=== PATIENT | male | born 1940 | race Caucasian/White ===

== ENCOUNTER 2022-01-18 08:50 | Inpatient (IN) | payer MEDICARE ==
[2022-01-18] MEDS ORDERED: NITROGLYCERIN SL TABS 0.4 MG TAB SUBLINGUAL PRN (09:15)
[2022-01-18] MEDS ORDERED: ASPIRIN 325 MG TAB PO STA (09:15)
[2022-01-18] MEDS ORDERED: ATORVASTATIN 80 MG TAB PO STA (09:17)
--- NOTE | 2022-01-18 09:22 | ED ---
General Adult HPI - General Chief complaint: Chest Pain Stated complaint: Chest Pain Time Seen by Provider: 01/18/22 08:53 Source: patient, RN notes reviewed, old records reviewed Mode of arrival: ambulatory Limitations: no limitations - History of Present Illness Initial comments: 81-year-old male presenting for evaluation of exertional chest pain over the past one week and constant nonexertional chest pain over the past 4 hours. Patient states is associated with diaphoresis. No vomiting or abdominal pain. Patient states that over the past one week after using his exercise bike he developed about 30 minutes of substernal chest pain. States it radiates to his neck and jaw. He has previous history of CAD with stenting. Follows with cardiology. - Related Data Allergies Allergy/AdvReac Type Severity Reaction Status Date / Time clopidogrel [From Plavix] Allergy Unknown Verified 01/18/22 09:00 Review of Systems ROS Statement: Those systems with pertinent positive or pertinent negative responses have been documented in the HPI. ROS Other: All systems not noted in ROS Statement are negative. Past Medical History Past Medical History: Coronary Artery Disease (CAD), Chest Pain / Angina, Hyperlipidemia History of Any Multi-Drug Resistant Organisms: None Reported Additional Past Surgical History / Comment(s): Cardiac stents Past Psychological History: No Psychological Hx Reported Smoking Status: Never smoker Past Alcohol Use History: Daily Past Drug Use History: None Reported General Exam Limitations: no limitations General appearance: alert, in no apparent distress Head exam: Present: atraumatic, normocephalic Eye exam: Present: normal appearance, PERRL ENT exam: Present: normal exam Neck exam: Present: normal inspection. Absent: tenderness, meningismus Respiratory exam: Present: normal lung sounds bilaterally. Absent: respiratory distress, wheezes Cardiovascular Exam: Present: normal rhythm, tachycardia GI/Abdominal exam: Present: soft. Absent: distended, tenderness, guarding, rebound Extremities exam: Present: normal inspection, normal capillary refill. Absent: pedal edema Neurological exam: Present: alert, oriented X3, CN II-XII intact. Absent: motor sensory deficit Psychiatric exam: Present: normal affect, normal mood Skin exam: Present: warm, dry, intact. Absent: cyanosis, diaphoretic Course Vital Signs 01/18/22 01/18/22 01/18/22 08:57 09:07 09:24 Temperature 98 F Pulse Rate 55 L 54 L Pulse Rate [ 53 L Health Program Specialist ] Respiratory 20 18 Rate Blood Pressure 131/83 142/88 O2 Sat by Pulse 100 98 Oximetry 01/18/22 01/18/22 01/18/22 09:31 09:35 09:42 Temperature Pulse Rate 43 L 48 L 47 L Pulse Rate [ Health Program Specialist ] Respiratory 18 18 18 Rate Blood Pressure 64/45 91/61 104/71 O2 Sat by Pulse 97 96 97 Oximetry 01/18/22 09:46 Temperature Pulse Rate 44 L Pulse Rate [ Health Program Specialist ] Respiratory 18 Rate Blood Pressure 116/73 O2 Sat by Pulse 98 Oximetry - Reevaluation(s) Reevaluation #1: 01/18/22 09:[address] James covering for cardiology. Will review EKG urgently and advise. Currently patient will receive aspirin, Lipitor, nit roglycerin. EKG Findings - EKG Comments: EKG Findings:: EKG: Sinus bradycardia with first-degree AV block, ST segment depression and biphasic T waves in the precordial leads V2 and V3 with continued depression in V4 V5. There is questionable elevation in aVR. Ischemic appearing EKG with a ventricular rate of 53, UT interval 219, QRS 100, QTC 382, no old for comparison. Repeat EKG at 927, sinus bradycardia with first-degree AV block, ST segment depression in the precordial leads, no ST segment elevation appreciated, ventricular rate of 48, UT interval 220, QRS duration 112, QTC 369. Medical Decision Making - Medical Decision Making 81 yo male presenting for evaluation of evaluation of chest pain. Patient has ischemic appearing EKG. His symptoms are consistent with ACS. He is given aspirin, Lipitor and nitroglycerin. The patient does respond poorly 2 nitroglycerin with hypotension and diaphoresis. This is treated with 1 L normal saline bolus and does resolve. Patient has a stable hemoglobin at 15. He started on heparin. I did discuss case with Dr. James throughout the care of this patient in the emergency department. He will be evaluated urgently by cardiology. [facility] to [facility]. Troponin is elevated at 0.7. Non-ST segment elevated IA. - Lab Data Result diagrams: 01/18/22 09:20 01/18/22 09:20 Lab Results 01/18/22 01/18/22 01/18/22 Range/Units 09:20 09:20 09:20 WBC 13.0 H (3.8-10.6) k/uL RBC 4.89 (4.30-5.90) m/uL Hgb 15.3 (13.0-17.5) gm/dL Hct 47.3 (39.0-53.0) % MCV 96.8 (80.0-100.0) fL MCH 31.4 (25.0-35.0) pg MCHC 32.4 (31.0-37.0) g/dL RDW 12.0 (11.5-15.5) % Plt Count 285 (150-450) k/uL MPV 7.5 Neutrophils % 80 % Lymphocytes % 13 % Monocytes % 4 % Eosinophils % 1 % Basophils % 1 % Neutrophils # 10.4 H (1.3-7.7) k/uL Lymphocytes # 1.7 (1.0-4.8) k/uL Monocytes # 0.6 (0-1.0) k/uL Eosinophils # 0.1 (0-0.7) k/uL Basophils # 0.1 (0-0.2) k/uL PT 9.9 (9.0-12.0) sec INR 0.9 (<1.2) APTT 23.8 (22.0-30.0) sec Sodium 138 (137-145) mmol/L Potassium 4.1 (3.5-5.1) mmol/L Chloride 100 (98-107) mmol/L Carbon Dioxide 25 (22-30) mmol/L Anion Gap 13 mmol/L BUN 18 (9-20) mg/dL Creatinine 0.97 (0.66-1.25) mg/dL Est GFR (CKD-EPI)AfAm 86 (>60 ml/min/1.73 sqM) Est GFR (CKD-EPI)NonAf 75 (>60 ml/min/1.73 sqM) Glucose 138 H (74-99) mg/dL Calcium 9.9 (8.4-10.2) mg/dL Magnesium 2.0 (1.6-2.3) mg/dL Total Bilirubin 0.6 (0.2-1.3) mg/dL AST 57 (17-59) U/L ALT 38 (4-49) U/L Alkaline Phosphatase 88 (38-126) U/L Troponin I (0.000-0.034) ng/mL NT-Pro-B Natriuret Pep pg/mL Total Protein 7.7 (6.3-8.2) g/dL Albumin 4.5 (3.5-5.0) g/dL Lipase 159 (23-300) U/L 01/18/22 01/18/22 Range/Units 09:20 09:20 WBC (3.8-10.6) k/uL RBC (4.30-5.90) m/uL Hgb (13.0-17.5) gm/dL Hct (39.0-53.0) % MCV (80.0-100.0) fL MCH (25.0-35.0) pg MCHC (31.0-37.0) g/dL RDW (11.5-15.5) % Plt Count (150-450) k/uL MPV Neutrophils % % Lymphocytes % % Monocytes % % Eosinophils % % Basophils % % Neutrophils # (1.3-7.7) k/uL Lymphocytes # (1.0-4.8) k/uL Monocytes # (0-1.0) k/uL Eosinophils # (0-0.7) k/uL Basophils # (0-0.2) k/uL PT (9.0-12.0) sec INR (<1.2) APTT (22.0-30.0) sec Sodium (137-145) mmol/L Potassium (3.5-5.1) mmol/L Chloride (98-107) mmol/L Carbon Dioxide (22-30) mmol/L Anion Gap mmol/L BUN (9-20) mg/dL Creatinine (0.66-1.25) mg/dL Est GFR (CKD-EPI)AfAm (>60 ml/min/1.73 sqM) Est GFR (CKD-EPI)NonAf (>60 ml/min/1.73 sqM) Glucose (74-99) mg/dL Calcium (8.4-10.2) mg/dL Magnesium (1.6-2.3) mg/dL Total Bilirubin (0.2-1.3) mg/dL AST (17-59) U/L ALT (4-49) U/L Alkaline Phosphatase (38-126) U/L Troponin I 0.792 H* (0.000-0.034) ng/mL NT-Pro-B Natriuret Pep 129 pg/mL Total Protein (6.3-8.2) g/dL Albumin (3.5-5.0) g/dL Lipase (23-300) U/L Critical Care Time Critical Care Time: Yes Total Critical Care Time: 35 Disposition Clinical Impression: Acute non-ST elevation myocardial infarction (NSTEMI) Disposition: ADMITTED IP TO THIS [facility] Condition: Serious Is patient prescribed a controlled substance at d/c from ED?: No Referrals: Davidson Reveles DO [Primary Care Provider] - 1-2 days Time of Disposition: 10:17
[2022-01-18 09:28] LABS: Basophils # (A) 0.1 k/uL (0-0.2); Basophils % (A) 1 %; Eosinophils # (A) 0.1 k/uL (0-0.7); Eosinophils % (A) 1 %; HCT 47.3 % (39.0-53.0); HGB 15.3 gm/dL (13.0-17.5); Lymphocytes # (A) 1.7 k/uL (1.0-4.8); Lymphocytes % (A) 13 %; MCH 31.4 pg (25.0-35.0); MCHC 32.4 g/dL (31.0-37.0); MCV 96.8 fL (80.0-100.0); Mean Platelet Volume 7.5; Monocytes # (A) 0.6 k/uL (0-1.0); Monocytes % (A) 4 %; Neutrophils # (A) 10.4 k/uL (1.3-7.7); Neutrophils % (A) 80 %; Platelet Count 285 k/uL (150-450); RBC 4.89 m/uL (4.30-5.90)
[2022-01-18] MEDS ORDERED: SODIUM CHLORIDE 0.9% 1,000 ML IV ONE ×2 (09:31→11:44)
[2022-01-18 09:41] LABS: Albumin 4.5 g/dL (3.5-5.0); Calcium 9.9 mg/dL (8.4-10.2); INR 0.9 (<1.2); Partial Thromboplastin Time 23.8 sec (22.0-30.0); Potassium 4.1 mmol/L (3.5-5.1); Prothrombin Time 9.9 sec (9.0-12.0); Total Bilirubin 0.6 mg/dL (0.2-1.3); Total Protein 7.7 g/dL (6.3-8.2)
[2022-01-18] MEDS ORDERED: HEPARIN SODIUM 1,000 UN/ML (10ML VL) IV ONE ×2 (09:47→12:15)
[2022-01-18] MEDS: HEPARIN SOD,PORK IN 0.45% NACL 25,000 UNIT in 0.45% NACL 1 250ML.BAG IV SCH ×2 (10:00→13:44)
--- NOTE | 2022-01-18 10:00 | XR ---
EXAMINATION TYPE: XR chest 1V portable DATE OF EXAM: 01/18/2022 9:54 AM COMPARISON: None TECHNIQUE: XR chest 1V portable Frontal view of the chest. CLINICAL INDICATION:Male, 81 years old with history of chest pain; FINDINGS: Lungs/Pleura: There is no evidence of pleural effusion, focal consolidation, or pneumothorax. Pulmonary vascularity: Unremarkable. Heart/mediastinum: Cardiomediastinal silhouette is unremarkable. Musculoskeletal: No acute osseous pathology. IMPRESSION: No acute cardiopulmonary disease/process.
--- NOTE | 2022-01-18 11:06 | P.CRDCN ---
History of Present Illness History of present illness: HISTORY OF PRESENTING ILLNESS Patient is pleasant 81-year-old male with history of CAD status post remote stenting approximately 20 years ago, hyperlipidemia who normally follows with Dr. Fritz. He states that over the last week he has had increased episodes of shortness breath and some chest tightness after working too much short exerting himself. He will stop it and it will go away. Over last 24 hours he has felt somewhat more uncomfortable and had a harder time sleeping and then started to develop more chest pressure sensation with some shortness of breath and diaphoresis. He therefore came emergency department and was found to have diffuse ST depressions V1 through V6 as well as in the inferior leads. He was given nitroglycerin however decrease in blood pressure with some mild improvement in chest pain. He admits he has done very well since his initial stenting approximately 22 years ago. He actually had a echocardiogram performed last week in the office however results not available. Currently he is still having some mild 1-2 out of 10 chest pressure. Denies any orthopnea. Blood pressure stable 120s over 80s. Blood work shows white blood cell count 13.0, hemoglobin 15, creatinine 0.9, troponin 0.79. He states he has an ALLERGY to Plavix however appears more of an intolerance and denies any hematochezia or melena. REVIEW OF SYSTEMS At the time of my exam: CONSTITUTIONAL: Denies fever or chills. CARDIOVASCULAR: +chest pain, +shortness of breath, no orthopnea, PND or palpitations. RESPIRATORY: Denies cough. GASTROINTESTINAL: Denies abdominal pain, diarrhea, constipation, nausea or vomiting. MUSCULOSKELETAL: Denies myalgias. NEUROLOGIC: Denies numbness, tingling or weakness. ENDOCRINE: Denies fatigue, weight change, polydipsia or polyurina. GENITOURINARY: Denies burning, hematuria or urgency with micturation. HEMATOLOGIC: Denies history of anemia or bleeding. PHYSICAL EXAMINATION Vital signs reviewed. CONSTITUTIONAL: No apparent distress. HEENT: Head is normocephalic. Pupils are equal, round. Sclerae anicteric. Mucous membranes of the mouth are moist. No JVD. No carotid bruit. CHEST EXAMINATION: Lungs are clear to auscultation. No chest wall tenderness is noted on palpation or with deep breathing. HEART EXAMINATION: Regular rate and rhythm. S1, S2 heard. No murmurs, gallops or rub. ABDOMEN: Soft, nontender. Positive bowel sounds. EXTREMITIES: 2+ peripheral pulses, no lower extremity edema and no calf tenderness. NEUROLOGIC EXAMINATION: Patient is awake, alert and oriented x3. ASSESSMENT 1. Non-STEMI with ongoing mild chest discomfort 2. Hypotension after administering nitroglycerin, improved 3. Hyperlipidemia 4. CAD with prior history of remote PCI PLAN Patient with classic symptoms and concerning ischemic-appearing EKG with ongoing chest pain and non-STEMI. Therefore discussed recommendations for more urgent heart catheterization and patient is agreeable. Check 2-D echo. Heparin drip, aspirin. Further recommendations to follow. Past Medical History Past Medical History: Coronary Artery Disease (CAD), Chest Pain / Angina, Hyperlipidemia History of Any Multi-Drug Resistant Organisms: None Reported Additional Past Surgical History / Comment(s): Cardiac stents Past Psychological History: No Psychological Hx Reported Smoking Status: Never smoker Past Alcohol Use History: Daily Past Drug Use History: None Reported Medications and Allergies Allergies Allergy/AdvReac Type Severity Reaction Status Date / Time clopidogrel [From Plavix] Allergy Unknown Verified 01/18/22 09:00 Physical Exam Vitals: Vital Signs Temp Pulse Pulse Resp BP Pulse Ox 01/18/22 09:46 44 L 18 116/73 98 01/18/22 09:42 47 L 18 104/71 97 01/18/22 09:35 48 L 18 91/61 96 01/18/22 09:31 43 L 18 64/45 97 01/18/22 09:24 54 L 18 142/88 98 01/18/22 09:07 53 L 01/18/22 08:57 98 F 55 L 20 131/83 100 Intake and Output 01/17/22 01/18/22 01/18/22 22:59 06:59 14:59 Other: Weight 92.986 kg Results 01/18/22 09:20 01/18/22 09:20 Cardiac Enzymes 01/18/22 01/18/22 Range/Units 09:20 09:20 AST 57 (17-59) U/L Troponin I 0.792 H* (0.000-0.034) ng/mL Coagulation 01/18/22 Range/Units 09:20 PT 9.9 (9.0-12.0) sec APTT 23.8 (22.0-30.0) sec CBC 01/18/22 Range/Units 09:20 WBC 13.0 H (3.8-10.6) k/uL RBC 4.89 (4.30-5.90) m/uL Hgb 15.3 (13.0-17.5) gm/dL Hct 47.3 (39.0-53.0) % Plt Count 285 (150-450) k/uL Comprehensive Metabolic Panel 01/18/22 Range/Units 09:20 Sodium 138 (137-145) mmol/L Potassium 4.1 (3.5-5.1) mmol/L Chloride 100 (98-107) mmol/L Carbon Dioxide 25 (22-30) mmol/L BUN 18 (9-20) mg/dL Creatinine 0.97 (0.66-1.25) mg/dL Glucose 138 H (74-99) mg/dL Calcium 9.9 (8.4-10.2) mg/dL AST 57 (17-59) U/L ALT 38 (4-49) U/L Alkaline Phosphatase 88 (38-126) U/L Total Protein 7.7 (6.3-8.2) g/dL Albumin 4.5 (3.5-5.0) g/dL Current Medications Generic Name Dose Route Start Last Admin Trade Name Freq PRN Reason Stop Dose Admin Heparin Sodium (Porcine) 0 unit 01/18/22 09:47 Heparin Sodium 1,000 Un/Ml (10ml Vl) IV PER PROTOCOL PRN Low PTT Protocol Heparin Sodium/Sodium Chloride 250 mls @ 10 mls/hr 01/18/22 10:00 01/18/22 10:00 25,000 unit/ Sodium Chloride IV 10.754 units/kg/hr .Q24H PANKAJ 10 mls/hr Administration Protocol 10.754 UNITS/KG/HR Nitroglycerin 0.4 mg 01/18/22 09:15 01/18/22 09:24 Nitroglycerin Sl Tabs 0.4 Mg Tab SUBLINGUAL 0.4 mg Q5M PRN Administration Chest Pain Intake and Output 01/17/22 01/18/22 01/18/22 22:59 06:59 14:59 Other: Weight 92.986 kg Patient Weight 01/19/22 06:59 Weight 92.986 kg 01/18/22 09:20 01/18/22 09:20
[2022-01-18] MEDS ORDERED: IV FLUID CONTINUATION 1,000 ML IV ONE (11:31)
[2022-01-18] MEDS ORDERED: VERAPAMIL 2.5 MG/ML 2 ML AMP ONE (11:34)
[2022-01-18] MEDS ORDERED: fentaNYL (PF) 50 MCG/ML 2 ML AMP ONE (11:55)
[2022-01-18] MEDS ORDERED: LIDOCAINE 1% INJ 10MG/ML (30 ML VIAL-PF) SQ ONE (12:10)
[2022-01-18] MEDS ORDERED: fentaNYL (PF) 50 MCG/ML 2 ML AMP IV ONE (12:10)
[2022-01-18] MEDS ORDERED: MIDAZOLAM 2 MG/2 ML VIAL IV ONE (12:11)
[2022-01-18] MEDS ORDERED: VERAPAMIL SYRINGE (5 MG/10 ML) INTRAARTER ONE (12:13)
[2022-01-18] MEDS ORDERED: IOPAMIDOL-370 125ML BTL INJ ONE (12:26)
--- NOTE | 2022-01-18 12:55 | P.HPIM ---
History of Present Illness H&P Date: 01/18/22 Chief Complaint: chest pain 81-year-old male with history of CAD status post remote stenting approximately 20 years ago, hyperlipidemia who normally follows with Dr. Fritz. He has been experiencing increased episodes of exertional chest pressure associated with shortness breath, diaphoresis, feeling of indigestion. Symptoms worse with exertion. Relieved by rest. Symptoms worsened the last 2 days. In the ER EKG showed diffuse ST depressions V1 through V6 as well as in the inferior leads. Blood work shows white blood cell count 13.0, hemoglobin 15, creatinine 0.9, troponin 0.79. Review of Systems Complete review of system performed, pertinent positives per HPI, otherwise negative Past Medical History Past Medical History: Coronary Artery Disease (CAD), Chest Pain / Angina, Hyperlipidemia History of Any Multi-Drug Resistant Organisms: None Reported Additional Past Surgical History / Comment(s): Cardiac stents Past Psychological History: No Psychological Hx Reported Smoking Status: Never smoker Past Alcohol Use History: Daily Past Drug Use History: None Reported Medications and Allergies Home Medications Medication Instructions Recorded Confirmed Type Aspirin 650 mg PO ONCE 01/18/22 01/18/22 History Aspirin EC [Ecotrin Low Dose] 81 mg PO DAILY 01/18/22 01/18/22 History Atorvastatin [Lipitor] 40 mg PO HS 01/18/22 01/18/22 History Garlic 1,000 mg PO Q48H 01/18/22 01/18/22 History Ibuprofen [Motrin Ib] 400 mg PO ONCE 01/18/22 01/18/22 History L.acidoph,Paracasei, B.lactis 1 cap PO Q48H 01/18/22 01/18/22 History [Probiotic] Levothyroxine Sodium [Synthroid] 137 mcg PO AC-BRKFST 01/18/22 01/18/22 History Milk Thistle 150 mg PO Q48H 01/18/22 01/18/22 History Mood Swing Supplement 1 tab PO Q48H 01/18/22 01/18/22 History Multivitamins, Thera [Multivitamin 1 tab PO DAILY 01/18/22 01/18/22 History (formulary)] Saw [place] 500 mg PO Q48H 01/18/22 01/18/22 History Selenium 100 mcg PO Q48H 01/18/22 01/18/22 History Sildenafil Citrate 100 mg PO DAILY PRN 01/18/22 01/18/22 History Valerian Root [Valerian] 450 mg PO Q48H 01/18/22 01/18/22 History Vitamin B-3(Unknown) 1 tab PO Q48H 01/18/22 01/18/22 History Vitamin C(Unknown) 1 tab PO Q48H 01/18/22 01/18/22 History Vitamin D3(Unknown) 1 tab PO Q48H 01/18/22 01/18/22 History Zinc 50 mg PO Q48H 01/18/22 01/18/22 History atenoloL [Tenormin] 25 mg PO HS 01/18/22 01/18/22 History Allergies Allergy/AdvReac Type Severity Reaction Status Date / Time clopidogrel [From Plavix] Allergy Unknown Verified 01/18/22 11:05 nitroglycerin AdvReac vasovagal Verified 01/18/22 11:14 Physical Exam Vitals: Vital Signs Temp Pulse Pulse Resp BP Pulse Ox 01/18/22 11:26 98.2 F 01/18/22 11:24 53 L 18 130/71 98 01/18/22 11:00 52 L 18 138/84 100 01/18/22 09:46 44 L 18 116/73 98 01/18/22 09:42 47 L 18 104/71 97 01/18/22 09:35 48 L 18 91/61 96 01/18/22 09:31 43 L 18 64/45 97 01/18/22 09:24 54 L 18 142/88 98 01/18/22 09:07 53 L 01/18/22 08:57 98 F 55 L 20 131/83 100 Intake and Output 01/17/22 01/18/22 01/18/22 22:59 06:59 14:59 Intake Total 100 Balance 100 Intake: IV 100 Other: Weight 92.986 kg Constitutional: No acute distress, conversant, pleasant Eyes:Anicteric sclerae, moist conjunctiva, no lid-lag, PERRLA, ENMT: Oropharynx clear, no erythema, exudates Neck: Supple, FROM, no masses, or JVD, No carotid bruits, No thyromegaly Lungs: Clear to auscultation, Clear to percussion, Normal respiratory effort, no accessory muscle use Cardiovascular: Heart regular in rate and rhythm, No murmurs, gallops, or rubs, No peripheral edema Abdominal: Soft, Nontender, no guarding, rebound or rigidity, Normoactive bowel sounds, No hepatomegaly, No splenomegaly, No palpable mass Skin: Normal temperature, tone, texture, turgor, no induration, No subcutaneous nodules, No rash, lesions, No ulcers Extremities: No digital cyanosis, No clubbing, Pedal pulses intact and symmetrical, Radial pulses intact and symmetrical, No calf tenderness Psychiatric: Alert and oriented to person, place and time, appropriate affect, intact judgement Neuro: Muscles Strength 5/5 in all 4 extremities, Sensation to light touch grossly present throughout, Cranial nerves II-XII grossly intact, no focal sensory deficits Results CBC & Chem 7: 01/18/22 09:20 01/18/22 09:20 Labs: Abnormal Lab Results - Last 24 Hours (Table) 01/18/22 01/18/22 01/18/22 Range/Units 09:20 09:20 09:20 WBC 13.0 H (3.8-10.6) k/uL Neutrophils # 10.4 H (1.3-7.7) k/uL Glucose 138 H (74-99) mg/dL Troponin I 0.792 H* (0.000-0.034) ng/mL Assessment and Plan Plan: Chest pain Non-ST elevation myocardial infarction Patient admitted Started on aspirin and heparin drip Telemetry Cycle troponins Cardiology evaluation Hypothyroidism Hyperlipidemia Stable Check TSH Resume meds Admit to inpatient, expected length of stay more than 2 midnights
[2022-01-18] MEDS ORDERED: NALOXONE 0.4 MG/ML 1 ML VIAL IV PRN (12:57)
--- NOTE | 2022-01-18 13:13 | P.CARDCATH ---
Description of Procedure: PROCEDURES PERFORMED: Left heart catheterization, bilateral coronary angiography INDICATION: Non-STEMI HISTORY: Patient is a pleasant 81-year-old male with history of CAD with prior stenting approximately 22 years ago to the circumflex and LAD who presents with worsened chest discomfort over the last week and chest pain at rest on presentation. He was found to have non-STEMI with continued chest pain. By the time he presented to the catheterization lab however chest pain had improved. CONSENT:I have discussed the risks, benefits and alternative therapies for the above-mentioned procedure and for both sedation/analgesia as well as necessary blood product administration, if indicated, as they pertain to this patient. The patient has indicated understanding and acceptance of the risks and procedures discussed. PROCEDURE: After the risks, benefits and alternatives of the above mentioned procedure explained in detail with the patient, informed consent was obtained. Patient was taken to the catheterization lab and prepped and draped in usual fashion. 1% lidocaine was used to anesthetize the right radial artery. A 6- Taiwanese sheath was placed in the right radial artery using modified Seldinger technique. Left coronary angiography was performed with a 5-[place]ese JL 3.5 catheter and right coronary angiography was performed with a 5-[place] JR5 catheter in various views. A 5-[place] FL3.5 catheter was inserted into the left ventricle and pressure measurements were obtained. The right radial sheath was removed and a TR band was placed with hemostasis achieved. The patient tolerated the procedure well. Patient was transported back to the post catheterization holding area in stable condition. Conscious Sedation: Patient was monitored under the direct supervision of vision of myself for conscious sedation using Versed and fentanyl for a total duration of 14 minutes HEMODYNAMICS: Aorta: 132/76 LV: 141/12, LVEDP 34, there is a peak to peak gradient of 10mmHg SELECTIVE CORONARY ARTERIOGRAPHY: LEFT MAIN: The left main is a large caliber vessel which bifurcates into the LAD and circumflex. There is no significant stenosis. LEFT ANTERIOR DESCENDING CORONARY ARTERY: LAD is a large caliber vessel which wraps around to the apex. There is a proximal to mid LAD stent with diffuse in- stent stenosis. There is 75% in-stent stenosis. Otherwise there are mild luminal irregularities. LEFT CIRCUMFLEX CORONARY ARTERY: Left circumflex is a moderate caliber vessel with proximal stent which appears to extend back to the ostial circumflex. There is ostial 50% stenosis and then more severe 95% in-stent proximal circumflex stenosis. There is JAK 2-3 flow. RIGHT CORONARY ARTERY: The right coronary artery is a large caliber vessel which gives off a PDA and PLV branch and is the dominant vessel. There is diffuse mild luminal irregularities in a more focal mid RCA 60-70% stenosis and an ostial PDA 90% stenosis.. FINAL IMPRESSION: 1. Three-vessel CAD as described above including 90% PDA, mid RCA 60-70%, proximal circumflex 95% in-stent stenosis, proximal LAD 75% in-stent stenosis. 2. Extremely elevated left sided filling pressures 3. Mild aortic stenosis with peak to peak gradient of 10 mmHg PLAN: 1. Aggressive risk factor modification per most recent ACC/AHA guidelines. 2. Given multivessel disease and in-stent stenosis with circumflex stenting requiring coming back to the ostium, stenting carries somewhat increased risk. Assess for possible bypass however if deemed high risk would recommend multivessel PCI. Patient may require Impella protected PCI depending on progress with diuresis and EF given extremely elevated left sided filling pressures.
--- NOTE | 2022-01-18 16:36 | US ---
EXAMINATION TYPE: US carotid duplex BILAT DATE OF EXAM: 01/18/2022 COMPARISON: NONE CLINICAL HISTORY: Pre-Op Cardiac Surgery. No HTN TECHNIQUE: Carotid duplex ultrasound examination. Indirect Doppler criteria was utilized. FINDINGS: EXAM MEASUREMENTS: RIGHT: Peak Systolic Velocity (PSV) cm/sec ----- Right CCA: 71.3 ----- Right ICA: 74.6 ----- Right ECA: 64.7 ICA/CCA ratio: 1.0 RIGHT: End Diastole cm/sec ----- Right CCA: 17.5 ----- Right ICA: 19.7 ----- Right ECA: 14.2 LEFT: Peak Systolic Velocity (PSV) cm/sec ----- Left CCA: 59.2 ----- Left ICA: 114.5 ----- Left ECA: 62.5 ICA/CCA ratio: 1.9 LEFT: End Diastole cm/sec ----- Left CCA: 20.0 ----- Left ICA: 38.6 ----- Left ECA: 10.9 VERTEBRALS (direction of flow): Right Vertebral: Antegrade Left Vertebral: Antegrade Rhythm: Arrhythmia TENSION MACHINE OPERATOR NOTES: No elevated velocities. Wall thickening. IMPRESSION: There is antegrade flow in the vertebral arteries. The images and measurement suggests less than 25% stenosis in both internal carotid arteries. Criteria for Assigning % of Stenosis / Diameter reduction (Estimation based on the indirect measurements of the internal carotid artery velocities (ICA PSV). 1. Normal (no stenosis)=ICA PSV < 125 cm/s: ratio < 2.0: ICA EDV<40 cm/s. 2. Less than 50% stenosis=ICA PSV < 125 cm/s: ratio < 2.0: ICA EDV<40 cm/s. 3. 50 to 69% stenosis=ICA PSV of 125 to 230 cm/s: ration 2.0 ? 4.0: ICA EDV 40-100 cm/s. 4. Greater than 70% stenosis to near occlusion= ICA PSV > 230 cm/s: ratio > 4.0: ICA EDV > 100 cm/s. 5. Near occlusion= ICA PSV velocities may be low or undetectable: variable ratio and ICA EDV. 6. Total occlusion=unable to detect flow.
[2022-01-18 17:58] LABS: Amorphous Sediment,Urine Rare /hpf; Appearance,Urine Cloudy (Clear); Bilirubin,Urine Negative (Negative); Blood,Urine Negative (Negative); Color,Urine Light Yellow; Glucose,Urine (UA) Negative (Negative); Ketones,Urine Negative (Negative); Leukocyte Esterase,Urine Negative (Negative); Nitrite,Urine Negative (Negative); PH, Urine 7.5 (5.0-8.0); Protein,Urine Negative (Negative); RBC,Urine <1 /hpf (0-5); Specific Gravity,Urine 1.027 (1.001-1.035); Urobilinogen,Urine <2.0 mg/dL (<2.0)
--- NOTE | 2022-01-18 17:58 | CA ---
Transthoracic Echo Report Name: Dada Lino Age: 81 Gender: M : 1940 Exam Date: 01/18/2022 15:13 Exam Location: [facility] Ht (in): 71 Wt (lb): 220 Ordering Physician: Irwin Garcia Attending/Referring Phys: Jose QUEVEDO Fold Skiver Kate Gupta RDCS Procedure CPT: Indications: pre op Cardiac surgery, assess valves and LV fxn Cardiac Hx: Technical Quality: Good Contrast 1: Total Dose (mL): Contrast 2: Total Dose (mL): MEASUREMENTS (Male / Female) Normal Values 2D ECHO LV Diastolic Diameter PLAX 4.1 cm 4.2 - 5.9 / 3.9 - 5.3 cm LV Systolic Diameter PLAX 1.8 cm IVS Diastolic Thickness 1.3 cm 0.6 - 1.0 / 0.6 - 0.9 cm LVPW Diastolic Thickness 1.0 cm 0.6 - 1.0 / 0.6 - 0.9 cm LV Relative Wall Thickness 0.6 LVOT Diameter 1.8 cm LA Volume 47.1 cm??? 18 - 58 / 22 - 52 cm??? M-MODE Aortic Root Diameter MM 3.5 cm LA Systolic Diameter MM 3.2 cm LA Ao Ratio MM 0.9 AV Cusp Separation MM 1.2 cm DOPPLER AV Peak Velocity 196.6 cm/s AV Peak Gradient 15.5 mmHg AV Mean Velocity 144.5 cm/s AV Mean Gradient 9.0 mmHg AV Velocity Time Integral 50.6 cm LVOT Peak Velocity 75.3 cm/s LVOT Peak Gradient 2.3 mmHg AV Area Cont Eq pk 1.0 cm??? MV Area PHT 3.8 cm??? MR Peak Velocity 121.2 cm/s MR Peak Gradient 5.9 mmHg Mitral E Point Velocity 75.2 cm/s Mitral A Point Velocity 71.0 cm/s Mitral E to A Ratio 1.1 MV Deceleration Time 199.6 ms MV E' Velocity 6.9 cm/s Mitral E to MV E' Ratio 10.9 TR Peak Velocity 166.3 cm/s TR Peak Gradient 11.1 mmHg Right Ventricular Systolic Press 15.3 mmHg FINDINGS Left Ventricle Left ventricular ejection fraction is estimated at 40-45%. inferolateral wall is hypokinetic. Grade 1 diastolic dysfunction. Mildly increased septal wall thickness. Right Ventricle The right ventricle is normal in size and function. Right Atrium The right atrium is normal in size. Left Atrium The left atrium is normal in size. Mitral Valve Structurally normal mitral valve without significant stenosis or prolapse. There is trace mitral regurgitation. Aortic Valve Mild aortic stenosis with a peak gradient of 15 mmHg and a mean gradient of 9 mmHg. . There is no aortic regurgitation. Tricuspid Valve Structurally normal tricuspid valve without significant stenosis. Pulmonary artery systolic pressure is normal. Trace tricuspid regurgitation. Pulmonic Valve Structurally normal pulmonic valve without significant stenosis. There is no pulmonic regurgitation. Pericardium Normal pericardium without effusion. Aorta Normal aortic root dimension. CONCLUSIONS Mild LVH Left ventricular ejection fraction 40-45% with inferolateral hypokinesis Trace mitral regurgitation Mild aortic stenosis No pericardial effusion Previewed by: Dr. Mayank James DO (Electronically Signed) Final Date: 18 January 2022 17:57
[2022-01-18] MEDS: atenoloL 25 MG TAB PO SCH (21:14)
[2022-01-18] MEDS: ATORVASTATIN 40 MG TAB PO SCH (21:14)
[2022-01-18 22:40] LABS: Chol/HDL Ratio 4.13 Ratio; LDL Cholesterol,Calculated 71.1 mg/dL (0.0-131.0)
[2022-01-18] MEDS: HEPARIN SODIUM 1,000 UN/ML (10ML VL) IV PRN (22:52)
[2022-01-18 23:12] LABS: Hepatitis A Antibody IgM Nonreactive (Nonreactive); Hepatitis B Core IgM Nonreactive (Nonreactive); Hepatitis B Surface Antigen Nonreactive (Nonreactive); Hepatitis C IgG Antibody Nonreactive (Nonreactive)
[2022-01-18] MEDS: MUPIROCIN 2% OINT 22 GM TUBE NASAL SCH (23:13)
[2022-01-19 05:48] LABS: Basophils % (A) 0 %; Eosinophils % (A) 0 %; HCT 42.4 % (39.0-53.0); HGB 13.9 gm/dL (13.0-17.5); Lymphocytes # (A) 1.8 k/uL (1.0-4.8); Lymphocytes % (A) 12 %; MCH 31.8 pg (25.0-35.0); MCHC 32.8 g/dL (31.0-37.0); Mean Platelet Volume 7.8; Monocytes % (A) 7 %; Neutrophils # (A) 11.8 k/uL (1.3-7.7); Neutrophils % (A) 80 %; Platelet Count 271 k/uL (150-450); RBC 4.37 m/uL (4.30-5.90); RDW 12.1 % (11.5-15.5); WBC 14.8 k/uL (3.8-10.6)
[2022-01-19 06:27] LABS: INR 0.9 (<1.2); Partial Thromboplastin Time 62.9 sec (22.0-30.0); Prothrombin Time 10.3 sec (9.0-12.0)
[2022-01-19] MEDS: LEVOTHYROXINE 137 MCG TAB PO SCH (06:37)
[2022-01-19 06:39] LABS: ALT 69 U/L (4-49); AST 384 U/L (17-59); African American GFR (CKD) >90 (>60 ml/min/1.73 sqM); Albumin 3.7 g/dL (3.5-5.0); Alkaline Phosphatase 73 U/L (38-126); Anion Gap 7 mmol/L; Blood Urea Nitrogen 16 mg/dL (9-20); Calcium 8.8 mg/dL (8.4-10.2); Carbon Dioxide 25 mmol/L (22-30); Chloride 102 mmol/L (98-107); Glucose 137 mg/dL (74-99); Non-African American GFR(CKD) 81 (>60 ml/min/1.73 sqM); Potassium 4.3 mmol/L (3.5-5.1); Sodium 134 mmol/L (137-145); Total Bilirubin 0.9 mg/dL (0.2-1.3); Total Protein 6.3 g/dL (6.3-8.2)
[2022-01-19] MEDS: ASPIRIN 325 MG TAB PO SCH (08:16)
[2022-01-19] MEDS: MUPIROCIN 2% OINT 22 GM TUBE NASAL SCH ×2 (08:16→21:00)
[2022-01-19 09:33] LABS: Chol/HDL Ratio 2.91 Ratio; LDL Cholesterol,Calculated 63.3 mg/dL (0.0-131.0)
--- NOTE | 2022-01-19 10:37 | P.GSCN ---
History of Present Illness Consult date: 01/19/22 Reason for Consult: Multivessel coronary artery disease, non-ST elevated myocardial infarction this admission. Evaluate for myocardial revascularization surgery. Requesting physician: Mayank James History of present illness: This is a 81-year-old gentleman who follows with Dr. Davidson Reveles for his primary care service on an outpatient basis and with Dr. Fritz for his cardiology care. He is a past medical history significant for coronary artery disease with history with remote history of PCI 21 years ago, hyperlipidemia, thyroid disorder, daily EtOH use drinking 1 beer daily, remote history of nicotine dependence in which she quit smoking around 50 years ago and family history of early onset coronary artery disease with his father passing away from a myocardial infarction at age 55. The patient presented to the emergency department here on 01/18/2022 with complaints of chest pressure which was ra diating to his neck and left shoulder and was associated with some diaphoresis and when he closed his eyes he was seeing swirly things. He reports he has been having episodes of chest pressure with activity over the past 1-2 weeks with activity. He denies any recent fever, chills, nausea, vomiting, dizziness, shortness of breath, presyncope, syncope, palpitations, or headache. The patient states that prior to coming to the hospital he took 2 ibuprofen, 2 aspirin and Maalox trying to relieve the chest pressure thinking it was indigestion. He reports that the medicine that he took at home did not relieve his symptoms. At the time of his bedside evaluation he denies any complaints of chest pressure. The patient's and son are present at his bedside currently. A 12-lead EKG was completed in the emergency department which showed sinus bradycardia with a first-degree AV block, diffuse ST depressions in his inferior leads and V1 through V6 with a heart rate of 53 BPM. A chest x-ray was completed which showed no acute cardiopulmonary disease/process. Initial laboratory results showed a WBC count of 13.0, hemoglobin 15.3, hematocrit 47.3, platelets 285, PT 9.9, INR 0.9, PTT 23.8, sodium 138, potassium 4.1, chloride 100, CO2 25, BUN 18, creatinine 0.97, glucose 138, calcium 9.9, magnesium 2.0, proBNP 129 and elevated serial troponins as high as 200.0 ruling him in for a non-ST elevated myocardial infarction. Due to the patient's history of coronary artery disease, his presenting symptoms and his elevated troponins a consult was placed to Dr. James from cardiology. After obtaining consent the patient was taken to the cardiac catheterization lab where he underwent a left heart catheterization with bilateral coronary angiography which demonstrated three- vessel coronary artery disease with a 75% proximal left anterior descending coronary artery in-stent stenosis, a 95% proximal circumflex in-stent stenosis, a 60-70% stenosis to his mid right coronary artery and a 90% stenosis to his posterior descending coronary artery. It also demonstrated extremely elevated left-sided filling pressures and mild aortic valve stenosis with a peak the peak gradient of 10 mmHg. A transthoracic 2-D echocardiogram was also completed which showed an overall left ventricular ejection fraction of 40-45% with inferior lateral hypokinesis, trace mitral valve regurgitation, mild aortic valve stenosis, trace tricuspid valve regurgitation and a normal pericardial without effusion. Due to the patient's presenting symptoms, and the findings on his cardiac catheterization a consult was placed to Dr. Marylou Valadez from cardiothoracic surgery for further evaluation and treatment recommendations including myocardial revascularization surgery. As part of his preoperative workup a carotid duplex study was completed which showed antegrade flow in his vertebral arteries and less then 25% stenosis in both history of internal carotid arteries. A bedside FEV1 was also completed which showed a predicted value of 83% with a base volume of 2.43 L. Review of Systems A 14 point review of systems was completed was negative except as mentioned in the HPI. Past Medical History Past Medical History: Coronary Artery Disease (CAD), Chest Pain / Angina, Hyperlipidemia, Thyroid Disorder Additional Past Medical History / Comment(s): cardiac stents in 2000 Last Myocardial Infarction Date:: 2000 History of Any Multi-Drug Resistant Organisms: None Reported Past Surgical History: Tonsillectomy Additional Past Surgical History / Comment(s): Cardiac stents one to his left anterior ascending coronary artery and circumflex coronary artery. Past Anesthesia/Blood Transfusion Reactions: No Reported Reaction Past Psychological History: No Psychological Hx Reported Smoking Status: Former smoker (Quit smoking over 50 years ago) Past Alcohol Use History: Daily (Drinks 1 beer daily) Past Drug Use History: None Reported - Past Family History Father History Unknown: Yes Family Medical History: Myocardial Infarction ([place]) Additional Family Medical History / Comment(s): The patient's father at age 55 from myocardial infarction Mother History Unknown: Yes Family Medical History: CVA/TIA Medications and Allergies Home Medications Medication Instructions Recorded Confirmed Type Aspirin 650 mg PO ONCE 01/18/22 01/18/22 History Aspirin EC [Ecotrin Low Dose] 81 mg PO DAILY 01/18/22 01/18/22 History Atorvastatin [Lipitor] 40 mg PO HS 01/18/22 01/18/22 History Garlic 1,000 mg PO Q48H 01/18/22 01/18/22 History Ibuprofen [Motrin Ib] 400 mg PO ONCE 01/18/22 01/18/22 History L.acidoph,Paracasei, B.lactis 1 cap PO Q48H 01/18/22 01/18/22 History [Probiotic] Levothyroxine Sodium [Synthroid] 137 mcg PO AC-BRKFST 01/18/22 01/18/22 History Milk Thistle 150 mg PO Q48H 01/18/22 01/18/22 History Mood Swing Supplement 1 tab PO Q48H 01/18/22 01/18/22 History Multivitamins, Thera [Multivitamin 1 tab PO DAILY 01/18/22 01/18/22 History (formulary)] Saw [employer] 500 mg PO Q48H 01/18/22 01/18/22 History Selenium 100 mcg PO Q48H 01/18/22 01/18/22 History Sildenafil Citrate 100 mg PO DAILY PRN 01/18/22 01/18/22 History Valerian Root [Valerian] 450 mg PO Q48H 01/18/22 01/18/22 History Vitamin B-3(Unknown) 1 tab PO Q48H 01/18/22 01/18/22 History Vitamin C(Unknown) 1 tab PO Q48H 01/18/22 01/18/22 History Vitamin D3(Unknown) 1 tab PO Q48H 01/18/22 01/18/22 History Zinc 50 mg PO Q48H 01/18/22 01/18/22 History atenoloL [Tenormin] 25 mg PO HS 01/18/22 01/18/22 History Allergies Allergy/AdvReac Type Severity Reaction Status Date / Time clopidogrel [From Plavix] Allergy Unknown Verified 01/18/22 11:05 nitroglycerin AdvReac vasovagal Verified 01/18/22 11:14 Surgical - Exam Vital Signs Temp Pulse Resp BP Pulse Ox 98 F 55 L 20 131/83 100 01/18/22 08:57 01/18/22 08:57 01/18/22 08:57 01/18/22 08:57 01/18/22 08:57 - General Patient is currently sitting up to the bedside chair on the cardiac stepdown unit, is awake, alert, oriented 3 and is in no acute apparent distress. well developed, well nourished, no distress, no pain, obese - Eyes PERRL, normal ocular movement, no pale, no icteric - ENT normal pinna, normal nares, normal mucosa, no hearing loss, no congestion, dentures - Neck Neck is supple, no JVD, no lymphadenopathy. no masses, no bruits, trachea midline, no venous distension - Respiratory Lungs are essentially clear throughout, few scattered crackles to his bilateral bases. Respirations are symmetrical and nonlabored. Oxygen saturation is 96% on room air and he is achieving 2001 L on his incentive spirometry. - Cardiovascular Regular rhythm and rate. S1 and S2 present, negative for S3, gallop or murmur. Remote telemetry showing normal sinus rhythm heart rate 72 BPM. No edema present. Peripheral pulses palpable. - Abdomen Abdomen soft, nontender and nondistended. Active bowel sounds present all 4 abdominal quadrants. No guarding or rigidity. No organomegaly appreciated. - Genitourinary Deferred - Rectum Deferred - Integumentary Skin is warm and dry. No evidence of clubbing or cyanosis. no rash, no growths, no abnormal pigmentation - Neurologic No focal deficits. normal coordination, normal sensation - Musculoskeletal normal gait, normal posture - Psychiatric oriented to time, oriented to person, oriented to place, speech is normal, memory intact Results - Labs 01/19/22 05:31 01/19/22 05:31 Abnormal Lab Results - Last 24 Hours (Table) 01/18/22 01/18/22 01/18/22 Range/Units 09:20 09:20 16:16 WBC (3.8-10.6) k/uL Neutrophils # (1.3-7.7) k/uL APTT (22.0-30.0) sec Sodium (137-145) mmol/L Glucose (74-99) mg/dL AST (17-59) U/L ALT (4-49) U/L Troponin I 0.792 H* 169.000 H* (0.000-0.034) ng/mL Triglycerides 213.00 H (0.00-149.00) mg/dL VLDL Cholesterol, Calc 42.60 H (5.00-40.00) mg/dL HDL Cholesterol 36.30 L (40.00-60.00) mg/dL Amorphous Sediment (None) /hpf 01/18/22 01/18/22 01/18/22 Range/Units 17:40 19:58 19:58 WBC (3.8-10.6) k/uL Neutrophils # (1.3-7.7) k/uL APTT 35.9 H (22.0-30.0) sec Sodium (137-145) mmol/L Glucose (74-99) mg/dL AST (17-59) U/L ALT (4-49) U/L Troponin I 200.000 H* (0.000-0.034) ng/mL Triglycerides (0.00-149.00) mg/dL VLDL Cholesterol, Calc (5.00-40.00) mg/dL HDL Cholesterol (40.00-60.00) mg/dL Amorphous Sediment Rare H (None) /hpf 01/19/22 01/19/22 01/19/22 Range/Units 05:31 05:31 05:31 WBC 14.8 H (3.8-10.6) k/uL Neutrophils # 11.8 H (1.3-7.7) k/uL APTT 62.9 H (22.0-30.0) sec Sodium 134 L (137-145) mmol/L Glucose 137 H (74-99) mg/dL AST 384 H (17-59) U/L ALT 69 H (4-49) U/L Troponin I (0.000-0.034) ng/mL Triglycerides (0.00-149.00) mg/dL VLDL Cholesterol, Calc (5.00-40.00) mg/dL HDL Cholesterol (40.00-60.00) mg/dL Amorphous Sediment (None) /hpf 01/19/22 Range/Units 07:56 WBC (3.8-10.6) k/uL Neutrophils # (1.3-7.7) k/uL APTT (22.0-30.0) sec Sodium (137-145) mmol/L Glucose (74-99) mg/dL AST (17-59) U/L ALT (4-49) U/L Troponin I 79.500 H* (0.000-0.034) ng/mL Triglycerides (0.00-149.00) mg/dL VLDL Cholesterol, Calc (5.00-40.00) mg/dL HDL Cholesterol (40.00-60.00) mg/dL Amorphous Sediment (None) /hpf Microbiology - Last 24 Hours (Table) 01/18/22 17:40 Nasal Screen MRSA/MSSA - Preliminary Nasal Swab Diabetes panel 01/18/22 01/19/22 Range/Units 09:20 05:31 Sodium 134 L (137-145) mmol/L Potassium 4.3 (3.5-5.1) mmol/L Chloride 102 (98-107) mmol/L Carbon Dioxide 25 (22-30) mmol/L BUN 16 (9-20) mg/dL Creatinine 0.90 (0.66-1.25) mg/dL Glucose 137 H (74-99) mg/dL Calcium 8.8 (8.4-10.2) mg/dL AST 384 H (17-59) U/L ALT 69 H (4-49) U/L Alkaline Phosphatase 73 (38-126) U/L Total Protein 6.3 (6.3-8.2) g/dL Albumin 3.7 (3.5-5.0) g/dL Triglycerides 213.00 H (0.00-149.00) mg/dL HDL Cholesterol 36.30 L 40.90 (40.00-60.00) mg/dL Thyroid panel 01/18/22 Range/Units 09:20 TSH 1.100 (0.465-4.680) mIU/L Calcium panel 01/19/22 Range/Units 05:31 Calcium 8.8 (8.4-10.2) mg/dL Albumin 3.7 (3.5-5.0) g/dL Pituitary panel 01/18/22 01/19/22 Range/Units 09:20 05:31 Sodium 134 L (137-145) mmol/L Potassium 4.3 (3.5-5.1) mmol/L Chloride 102 (98-107) mmol/L Carbon Dioxide 25 (22-30) mmol/L BUN 16 (9-20) mg/dL Creatinine 0.90 (0.66-1.25) mg/dL Glucose 137 H (74-99) mg/dL Calcium 8.8 (8.4-10.2) mg/dL TSH 1.100 (0.465-4.680) mIU/L Adrenal panel 01/19/22 Range/Units 05:31 Sodium 134 L (137-145) mmol/L Potassium 4.3 (3.5-5.1) mmol/L Chloride 102 (98-107) mmol/L Carbon Dioxide 25 (22-30) mmol/L BUN 16 (9-20) mg/dL Creatinine 0.90 (0.66-1.25) mg/dL Glucose 137 H (74-99) mg/dL Calcium 8.8 (8.4-10.2) mg/dL Total Bilirubin 0.9 (0.2-1.3) mg/dL AST 384 H (17-59) U/L ALT 69 H (4-49) U/L Alkaline Phosphatase 73 (38-126) U/L Total Protein 6.3 (6.3-8.2) g/dL Albumin 3.7 (3.5-5.0) g/dL - Imaging Chest x-ray: report reviewed, image reviewed EKG: image reviewed Assessment and Plan Assessment: 1. Multivessel coronary artery disease 2. Non-ST elevated myocardial infarction this admission 3. History of coronary artery disease with remote history of PCI to his LAD and circumflex coronary artery 4. Hyperlipidemia 5. Thyroid disorder 6. Remote history of nicotine dependence 7. Daily EtOH use, drinks 1 beer daily 8. Family history of early onset coronary artery disease with his dad from a myocardial infarction at age 55 Plan: The patient was seen and examined at his bedside on the cardiac stepdown unit. His chart and diagnostics were reviewed. His case was discussed in detail with Dr. Marylou Valadez from cardiothoracic surgery. Preoperative testing and preoperative teaching has been initiated. A transthoracic 2-D echocardiogram results were reviewed. The usual course of myocardial revascularization surgery was discussed with the patient. A 5 m walk test will be completed with the patient. Once the patient's preoperative testing has been completed an STS risk score will be calculated in discussed with the patient with more recommendations to follow. More recommendations to follow based on patient's clinical course. Medical management and other comorbidities per primary care service. Continue to optimize the patient's medical management with aspirin, statin and beta shantel. Heparin drip management per urology recommendations. Troponins peaked at 200.00 and are trending down this morning at 79.5. Thank you Dr. James for this consult and we'll look forward to working with you in the care of this patient. I have personally seen and examined the patient, performed the documentation and the assessment and plan as written. 30 minutes spent on the visit . George GARCIA I have personally seen and examined the patient, reviewed all diagnostic studies cath, echo etc..., reviewed the documentation and agree with the assessment and plan for CABGX3, tentatively scheduled fro 01/22/2022. Discussed with patient , and Nestor. 45 minutes spent on the visit MARYLOU VALADEZ MD
[2022-01-19] MEDS: HEPARIN SOD,PORK IN 0.45% NACL 25,000 UNIT in 0.45% NACL 1 250ML.BAG IV SCH (11:25)
--- NOTE | 2022-01-19 13:48 | P.PN ---
Subjective HISTORY OF PRESENTING ILLNESS Patient is pleasant 81-year-old male with history of CAD status post remote stenting approximately 20 years ago, hyperlipidemia who normally follows with Dr. Fritz. He states that over the last week he has had increased episodes of shortness breath and some chest tightness after working too much short exerting himself. He will stop it and it will go away. Over last 24 hours he has felt somewhat more uncomfortable and had a harder time sleeping and then started to develop more chest pressure sensation with some shortness of breath and diaphoresis. He therefore came emergency department and was found to have diffuse ST depressions V1 through V6 as well as in the inferior leads. He was given nitroglycerin however decrease in blood pressure with some mild improvement in chest pain. He admits he has done very well since his initial stenting approximately 22 years ago. He actually had a echocardiogram performed last week in the office however results not available. Currently he is still having some mild 1-2 out of 10 chest pressure. Denies any orthopnea. Blood pressure stable 120s over 80s. Blood work shows white blood cell count 13.0, hemoglobin 15, creatinine 0.9, troponin 0.79. He states he has an ALLERGY to Plavix however appears more of an intolerance and denies any hematochezia or jeffry dora. 01/19 Patient seen and examined. Patient underwent heart catheterization yesterday morning which showed triple-vessel disease including likely culprit circumflex 99% stenosis with JAK 2-3 flow as well as in-stent stenosis of the LAD and RCA 60% with a PDA 90% stenosis. Additionally LVEDP was extremely elevated at 34. He was not having any significant chest discomfort at the time and therefore evaluated for bypass. Troponins later peaked up to 200. Echocardiogram reviewed with the EF 40-45% with inferior lateral hypokinesis. He states he has not had any further chest discomfort since yesterday morning. PHYSICAL EXAMINATION Vital signs reviewed. CONSTITUTIONAL: No apparent distress. HEENT: Head is normocephalic. Pupils are equal, round. Sclerae anicteric. Mucous membranes of the mouth are moist. No JVD. No carotid bruit. CHEST EXAMINATION: Lungs are clear to auscultation. No chest wall tenderness is noted on palpation or with deep breathing. HEART EXAMINATION: Regular rate and rhythm. S1, S2 heard. No murmurs, gallops or rub. ABDOMEN: Soft, nontender. Positive bowel sounds. EXTREMITIES: 2+ peripheral pulses, no lower extremity edema and no calf tenderness. NEUROLOGIC EXAMINATION: Patient is awake, alert and oriented x3. ASSESSMENT 1. Non-STEMI with left heart catheterization showing triple-vessel disease 2. Hypotension after administering nitroglycerin, improved 3. Hyperlipidemia 4. CAD with prior history of remote PCI 5. Acute on chronic systolic heart failure 6. Ischemic cardiomyopathy EF 40-45% PLAN Patient with triple-vessel disease and extreme elevations in troponins however was chest pain-free by the time catheterization was performed. Continue with aspirin and heparin drip. Add heart failure regimen as able. Diurese patient with extremely elevated LVEDP. Possible CABG Thursday if optimized. LAD and circumflex are in-stent and not very amenable to stenting. Further recommendations to follow. Objective - Vital Signs Vital signs: Vital Signs Temp 98.4 F 01/19/22 11:53 Pulse 56 L 01/19/22 11:53 Resp 16 01/19/22 11:53 BP 99/63 01/19/22 11:53 Pulse Ox 96 01/19/22 11:53 FiO2 Intake & Output 01/18/22 01/19/22 01/19/22 18:59 06:59 18:59 Intake Total 137.333 82.761 553.4 Output Total 350 Balance -212.667 82.761 553.4 Weight 99.9 kg Intake: IV 100 Intake, IV Titration 37.333 82.761 153.4 Amount Heparin Sod,Pork in 0.45% 37.333 82.761 153.4 NaCl 25,000 unit In 0.45 % NaCl 1 250ml.bag @ 10. 754 UNITS/KG/HR 10 mls/hr IV .Q24H [facility] Rx#: [id number] Oral 400 Output: Urine 350 Other: Voiding Method Urinal Urinal Urinal # Voids 1 1 - Labs CBC & Chem 7: 01/19/22 05:31 01/19/22 05:31 Labs: Abnormal Lab Results - Last 24 Hours (Table) 01/18/22 01/18/22 01/18/22 Range/Units 09:20 16:16 17:40 WBC (3.8-10.6) k/uL Neutrophils # (1.3-7.7) k/uL APTT (22.0-30.0) sec Sodium (137-145) mmol/L Glucose (74-99) mg/dL AST (17-59) U/L ALT (4-49) U/L Troponin I 169.000 H* (0.000-0.034) ng/mL Triglycerides 213.00 H (0.00-149.00) mg/dL VLDL Cholesterol, Calc 42.60 H (5.00-40.00) mg/dL HDL Cholesterol 36.30 L (40.00-60.00) mg/dL Amorphous Sediment Rare H (None) /hpf 01/18/22 01/18/22 01/19/22 Range/Units 19:58 19:58 05:31 WBC 14.8 H (3.8-10.6) k/uL Neutrophils # 11.8 H (1.3-7.7) k/uL APTT 35.9 H (22.0-30.0) sec Sodium (137-145) mmol/L Glucose (74-99) mg/dL AST (17-59) U/L ALT (4-49) U/L Troponin I 200.000 H* (0.000-0.034) ng/mL Triglycerides (0.00-149.00) mg/dL VLDL Cholesterol, Calc (5.00-40.00) mg/dL HDL Cholesterol (40.00-60.00) mg/dL Amorphous Sediment (None) /hpf 01/19/22 01/19/22 01/19/22 Range/Units 05:31 05:31 07:56 WBC (3.8-10.6) k/uL Neutrophils # (1.3-7.7) k/uL APTT 62.9 H (22.0-30.0) sec Sodium 134 L (137-145) mmol/L Glucose 137 H (74-99) mg/dL AST 384 H (17-59) U/L ALT 69 H (4-49) U/L Troponin I 79.500 H* (0.000-0.034) ng/mL Triglycerides (0.00-149.00) mg/dL VLDL Cholesterol, Calc (5.00-40.00) mg/dL HDL Cholesterol (40.00-60.00) mg/dL Amorphous Sediment (None) /hpf Microbiology - Last 24 Hours (Table) 01/18/22 17:40 Nasal Screen MRSA/MSSA - Preliminary Nasal Swab
[2022-01-19] MEDS: FUROSEMIDE 10 MG/ML 4 ML VIAL IV SCH ×2 (14:07→21:00)
--- NOTE | 2022-01-19 14:14 | P.PN ---
Subjective Progress Note Date: 01/19/22 Principal diagnosis: Chest pain His symptoms are currently resolved. He reported chest pain when laying on the left side. No sob. No n/v. No fevers. Objective - Vital Signs Vital signs: Vital Signs Temp 98.4 F 01/19/22 11:53 Pulse 56 L 01/19/22 11:53 Resp 16 01/19/22 11:53 BP 99/63 01/19/22 11:53 Pulse Ox 96 01/19/22 11:53 FiO2 Intake & Output 01/18/22 01/19/22 01/19/22 18:59 06:59 18:59 Intake Total 137.333 82.761 553.4 Output Total 350 Balance -212.667 82.761 553.4 Weight 99.9 kg Intake: IV 100 Intake, IV Titration 37.333 82.761 153.4 Amount Heparin Sod,Pork in 0.45% 37.333 82.761 153.4 NaCl 25,000 unit In 0.45 % NaCl 1 250ml.bag @ 10. 754 UNITS/KG/HR 10 mls/hr IV .Q24H [facility] Rx#: [id number] Oral 400 Output: Urine 350 Other: Voiding Method Urinal Urinal Urinal # Voids 1 1 - Exam Constitutional: No acute distress, conversant, pleasant Eyes:Anicteric sclerae, moist conjunctiva, no lid-lag, PERRLA, ENMT: Oropharynx clear, no erythema, exudates Neck: Supple, FROM, no masses, or JVD, No carotid bruits, No thyromegaly Lungs: Clear to auscultation, Clear to percussion, Normal respiratory effort, no accessory muscle use Cardiovascular: Heart regular in rate and rhythm, No murmurs, gallops, or rubs, No peripheral edema Abdominal: Soft, Nontender, no guarding, rebound or rigidity, Normoactive bowel sounds, No hepatomegaly, No splenomegaly, No palpable mass Skin: Normal temperature, tone, texture, turgor, no induration, No subcutaneous nodules, No rash, lesions, No ulcers Extremities: No digital cyanosis, No clubbing, Pedal pulses intact and symmetrical, Radial pulses intact and symmetrical, No calf tenderness Psychiatric: Alert and oriented to person, place and time, appropriate affect, intact judgement Neuro: Muscles Strength 5/5 in all 4 extremities, Sensation to light touch grossly present throughout, Cranial nerves II-XII grossly intact, no focal sensory deficits - Labs CBC & Chem 7: 01/19/22 05:31 01/19/22 05:31 Labs: Abnormal Lab Results - Last 24 Hours (Table) 01/18/22 01/18/22 01/18/22 Range/Units 09:20 16:16 17:40 WBC (3.8-10.6) k/uL Neutrophils # (1.3-7.7) k/uL APTT (22.0-30.0) sec Sodium (137-145) mmol/L Glucose (74-99) mg/dL AST (17-59) U/L ALT (4-49) U/L Troponin I 169.000 H* (0.000-0.034) ng/mL Triglycerides 213.00 H (0.00-149.00) mg/dL VLDL Cholesterol, Calc 42.60 H (5.00-40.00) mg/dL HDL Cholesterol 36.30 L (40.00-60.00) mg/dL Amorphous Sediment Rare H (None) /hpf 01/18/22 01/18/22 01/19/22 Range/Units 19:58 19:58 05:31 WBC 14.8 H (3.8-10.6) k/uL Neutrophils # 11.8 H (1.3-7.7) k/uL APTT 35.9 H (22.0-30.0) sec Sodium (137-145) mmol/L Glucose (74-99) mg/dL AST (17-59) U/L ALT (4-49) U/L Troponin I 200.000 H* (0.000-0.034) ng/mL Triglycerides (0.00-149.00) mg/dL VLDL Cholesterol, Calc (5.00-40.00) mg/dL HDL Cholesterol (40.00-60.00) mg/dL Amorphous Sediment (None) /hpf 01/19/22 01/19/22 01/19/22 Range/Units 05:31 05:31 07:56 WBC (3.8-10.6) k/uL Neutrophils # (1.3-7.7) k/uL APTT 62.9 H (22.0-30.0) sec Sodium 134 L (137-145) mmol/L Glucose 137 H (74-99) mg/dL AST 384 H (17-59) U/L ALT 69 H (4-49) U/L Troponin I 79.500 H* (0.000-0.034) ng/mL Triglycerides (0.00-149.00) mg/dL VLDL Cholesterol, Calc (5.00-40.00) mg/dL HDL Cholesterol (40.00-60.00) mg/dL Amorphous Sediment (None) /hpf Microbiology - Last 24 Hours (Table) 01/18/22 17:40 Nasal Screen MRSA/MSSA - Preliminary Nasal Swab Assessment and Plan Plan: Chest pain Non-ST elevation myocardial infarction Started on aspirin and heparin drip Continue statin Telemetry Cardiology following, s/p heart cath which showed 3 vessels disease, currently being evaluated by CT surgery for bypass. Tentatively scheduled for Thursday. Chronic systolic CHF Lasix IV. Continue atenolol. Add lisinopril Hypothyroidism TSH within therapeutic range Continue levothyroxine. Hyperlipidemia Resume meds
[2022-01-19] MEDS: ATORVASTATIN 40 MG TAB PO SCH (20:59)
[2022-01-19] MEDS: atenoloL 25 MG TAB PO SCH (20:59)
[2022-01-20] MEDS: HEPARIN SOD,PORK IN 0.45% NACL 25,000 UNIT in 0.45% NACL 1 250ML.BAG IV SCH (06:14)
[2022-01-20] MEDS: LEVOTHYROXINE 137 MCG TAB PO SCH (06:14)
[2022-01-20] MEDS: MUPIROCIN 2% OINT 22 GM TUBE NASAL SCH ×2 (08:57→20:35)
[2022-01-20] MEDS: ASPIRIN 325 MG TAB PO SCH (08:57)
[2022-01-20] MEDS: FUROSEMIDE 10 MG/ML 4 ML VIAL IV SCH ×2 (08:57→20:29)
[2022-01-20] MEDS: HEPARIN SODIUM 1,000 UN/ML (10ML VL) IV PRN (08:57)
[2022-01-20] MEDS ORDERED: MD COMMUNICATION TO PHARMACY 1 EACH MISC PO ONE ×4 (09:00→09:03)
--- NOTE | 2022-01-20 12:35 | P.PN ---
Subjective Patient is pleasant 81-year-old male with history of coronary artery disease status post PCI to the proximal circumflex and proximal LAD in 07/2000, hyperlipidemia, former nicotine dependence. He follows with Dr. Fritz. We have following the patient secondary to NSTEMI. Patient initially presented to the hospital on 01/18/2022 with complaints of increased shortness of breath and chest tightness after working too much short exerting himself. EKG revealed diffuse ST depressions V1 through V6 as well as in the inferior leads. He was given nitroglycerin however decrease in blood pressure with some mild improvement in chest pain. Troponins later peaked up to 200. 01/18/2022 Patient underwent heart catheterization which showed triple-vessel disease including likely culprit circumflex 99% stenosis with JAK 2-3 flow as well as in-stent stenosis of the LAD and RCA 60% with a PDA 90% stenosis. Additionally LVEDP was extremely elevated at 34. CT Surgery was consulted for evaluation for possible bypass. Echocardiogram revealed EF 40-45% with inferior lateral hypokinesis, trace mitral regurgitation, mild aortic stenosis with a peak/mean gradient of 15 mmHg/9 mmHg 01/20 Patient seen and examined at bedside, no acute distress. He is alert and oriented 3. Denies any chest pain or shortness of breath. Vital signs are stable. Blood pressure 90/62, heart 61, afebrile, saturation 95% room air. Patient is overall doing well, no complaints. Patient is maintaining sinus mechanism with heart rates in the 60s. PHYSICAL EXAMINATION Vital signs reviewed. CONSTITUTIONAL: No apparent distress. HEENT: Head is normocephalic.Neck Supple. No JVD. CHEST EXAMINATION: Lungs are clear to auscultation. No chest wall tenderness is noted on palpation or with deep breathing. HEART EXAMINATION: Regular rate and rhythm. S1, S2 heard. No murmurs, gallops or rub. ABDOMEN: Soft, nontender. Positive bowel sounds. EXTREMITIES: 2+ peripheral pulses, no lower extremity edema and no calf tenderness. SKIN: right radial cath site, clean dry and intact 2+ pulses NEUROLOGIC EXAMINATION: Patient is awake, alert and oriented x3. ASSESSMENT Non-STEMI with left heart catheterization showing triple-vessel disease Hypotension after administering nitroglycerin, improved Acute on chronic heart failure with mildly reduced ejection fraction Hyperlipidemia Coronary artery disease with prior history of PCI of the proximal circumflex and proximal LAD in 07/2000 Ischemic cardiomyopathy EF 40-45% Former nicotine dependence PLAN Continue with aspirin and heparin drip Continue statin Add heart failure regimen as able Continue IV Lasix, with extremely elevated LVEDP CT surgery following with planned CABG Thursday Further recommendations to follow Nurse practitioner note has been reviewed by physician. Signing provider agrees with the documented findings, assessment, and plan of care. Objective - Vital Signs Vital signs: Vital Signs Temp 98.2 F 01/20/22 08:54 Pulse 61 01/20/22 11:00 Resp 16 01/20/22 11:00 BP 104/54 01/20/22 11:00 Pulse Ox 93 L 01/20/22 11:00 FiO2 Intake & Output 01/19/22 01/20/22 01/20/22 18:59 06:59 18:59 Intake Total 913.4 225.8 150.8 Output Total 900 900 Balance 913.4 -674.2 -749.2 Weight 92.8 kg Intake: Intake, IV Titration 153.4 225.8 32.8 Amount Heparin Sod,Pork in 0.45% 153.4 225.8 32.8 NaCl 25,000 unit In 0.45 % NaCl 1 250ml.bag @ 10. 754 UNITS/KG/HR 10 mls/hr IV .Q24H [facility] Rx#: [id number] Oral 760 118 Output: Urine 900 900 Other: Voiding Method Urinal Urinal Urinal # Voids 1 - Labs CBC & Chem 7: 01/19/22 05:31 01/19/22 05:31 Labs: Abnormal Lab Results - Last 24 Hours (Table) 01/20/22 Range/Units 07:26 APTT 33.0 H (22.0-30.0) sec Microbiology - Last 24 Hours (Table) 01/18/22 17:40 Nasal Screen MRSA/MSSA - Final Nasal Swab
--- NOTE | 2022-01-20 13:02 | P.CNPUL ---
History of Present Illness Consult date: 01/20/22 Requesting physician: Nona Gil Reason for consult: other Chief complaint: Coronary artery disease. History of present illness: Pulmonary consult dated 01/20/2022. A 81-year-old male who presented to the emergency department on January 18, complaining of chest pain. Chest pain had been going on for about a week or so and was exertional in nature. More recently, he had constant nonexertional chest pain for 4 hours before admission to the emergency department. He also was having some diaphoresis. There is no vomiting or abdominal pain. The patient was seen in the emergency room, admitted to the hospital with acute coronary syndrome. The pain did radiate up into his jaw and neck. This patient has a history of hyperlipidemia. The patient also smoked for about 15-18 years many years ago. The patient worked in a [employer] and said that he was exposed to lots of sawdust. We were asked to see this patient, because he is apparently going to have bypass grafting on Thursday of this week. It appears that he doesn't have any significant lung disease. He denies any shortness of breath. He does not take any breathing medications at home. We have not yet seen his PFTs. White count 14.8, normal hemoglobin, hematocrit, and platelet count. PTT is 33. Sodium 134, potassium 4.3, chlorides 102, CO2 25, BUN 16, creatinine 0.9. Troponin was 200, subsequent troponin was 79.5. Chest x-ray was normal. Review of Systems REVIEW OF SYSTEMS: CONSTITUTIONAL: [Negative.] NEUROLOGIC: [ Negative.] HEENT: [ Negative.] CARDIAC: Chest pain. PULMONARY: [Negative.] GI: [Negative.] : [Negative.] RHEUMATOLOGIC: [ Negative.] IMMUNOLOGIC: [ Negative.] ENDOCRINE: [Negative. ] DERMATOLOGIC: [Negative.] Past Medical History Past Medical History: Coronary Artery Disease (CAD), Chest Pain / Angina, Hy perlipidemia, Thyroid Disorder Additional Past Medical History / Comment(s): cardiac stents in 2000 Last Myocardial Infarction Date:: 2000 History of Any Multi-Drug Resistant Organisms: None Reported Past Surgical History: Tonsillectomy Additional Past Surgical History / Comment(s): Cardiac stents one to his left anterior ascending coronary artery and circumflex coronary artery. Past Anesthesia/Blood Transfusion Reactions: No Reported Reaction Past Psychological History: No Psychological Hx Reported Smoking Status: Former smoker (Quit smoking over 50 years ago) Past Alcohol Use History: Daily (Drinks 1 beer daily) Past Drug Use History: None Reported - Past Family History Father History Unknown: Yes Family Medical History: Myocardial Infarction ([place]) Additional Family Medical History / Comment(s): The patient's father at age 55 from myocardial infarction Mother History Unknown: Yes Family Medical History: CVA/TIA Medications and Allergies Home Medications Medication Instructions Recorded Confirmed Type Aspirin 650 mg PO ONCE 01/18/22 01/18/22 History Aspirin EC [Ecotrin Low Dose] 81 mg PO DAILY 01/18/22 01/18/22 History Atorvastatin [Lipitor] 40 mg PO HS 01/18/22 01/18/22 History Garlic 1,000 mg PO Q48H 01/18/22 01/18/22 History Ibuprofen [Motrin Ib] 400 mg PO ONCE 01/18/22 01/18/22 History L.acidoph,Paracasei, B.lactis 1 cap PO Q48H 01/18/22 01/18/22 History [Probiotic] Levothyroxine Sodium [Synthroid] 137 mcg PO AC-BRKFST 01/18/22 01/18/22 History Milk Thistle 150 mg PO Q48H 01/18/22 01/18/22 History Mood Swing Supplement 1 tab PO Q48H 01/18/22 01/18/22 History Multivitamins, Thera [Multivitamin 1 tab PO DAILY 01/18/22 01/18/22 History (formulary)] Saw Lane 500 mg PO Q48H 01/18/22 01/18/22 History Selenium 100 mcg PO Q48H 01/18/22 01/18/22 History Sildenafil Citrate 100 mg PO DAILY PRN 01/18/22 01/18/22 History Valerian Root [Valerian] 450 mg PO Q48H 01/18/22 01/18/22 History Vitamin B-3(Unknown) 1 tab PO Q48H 01/18/22 01/18/22 History Vitamin C(Unknown) 1 tab PO Q48H 01/18/22 01/18/22 History Vitamin D3(Unknown) 1 tab PO Q48H 01/18/22 01/18/22 History Zinc 50 mg PO Q48H 01/18/22 01/18/22 History atenoloL [Tenormin] 25 mg PO HS 01/18/22 01/18/22 History Allergies Allergy/AdvReac Type Severity Reaction Status Date / Time clopidogrel [From Plavix] Allergy Unknown Verified 01/18/22 11:05 nitroglycerin AdvReac vasovagal Verified 01/18/22 11:14 Physical Exam Osteopathic Statement: *. No significant issues noted on an osteopathic structural exam other than those noted in the History and Physical/Consult. Vitals: Vital Signs Temp Pulse Resp BP Pulse Ox 01/20/22 11:00 61 16 104/54 93 L 01/20/22 08:54 98.2 F 61 16 99/62 95 01/20/22 03:30 63 16 92/57 96 01/20/22 01:55 57 L 16 01/20/22 00:00 98 F 57 L 16 94/55 96 01/19/22 20:00 98.4 F 60 16 104/64 95 01/19/22 15:47 98.2 F 57 L 16 104/61 96 01/19/22 14:00 56 L 16 Intake and Output 01/19/22 01/20/22 01/20/22 22:59 06:59 14:59 Intake Total 180 225.8 150.8 Output Total 350 550 900 Balance -170 -324.2 -749.2 Intake: Intake, IV Titration 225.8 32.8 Amount Heparin Sod,Pork in 0.45% 225.8 32.8 NaCl 25,000 unit In 0.45 % NaCl 1 250ml.bag @ 10. 754 UNITS/KG/HR 10 mls/hr IV .Q24H [facility] Rx#: [id number] Oral 180 118 Output: Urine 350 550 900 Other: Voiding Method Urinal Urinal Urinal Weight 92.8 kg No acute distress, oriented 3. Currently on room air. HEENT examination is grossly unremarkable. Neck supple. Full range of motion. No adenopathy thyromegaly or neck vein distention. Cardiovascular examination reveals regular rhythm rate. S1-S2 normal. No S3 or S4. No discernible murmur noted. Heart rate 61 bpm. Lungs reveal clear breath sounds. Breath sounds are equal bilaterally. No adventitious lung sounds including wheezes rhonchi or crackles. Abdomen soft bowel sounds are heard. No masses or tenderness. Extremities are intact. No cyanosis clubbing or edema. Skin is without rash or lesion. Neurologic examination is brief but nonfocal. Results - Laboratory Findings CBC and BMP: 01/19/22 05:31 01/19/22 05:31 PT/INR, D-dimer PT 10.3 sec (9.0-12.0) 01/19/22 05:31 INR 0.9 (<1.2) 01/19/22 05:31 Abnormal lab findings: Abnormal Labs 01/18/22 01/18/22 01/18/22 09:20 09:20 09:20 WBC 13.0 H Neutrophils # 10.4 H APTT Sodium Glucose 138 H AST ALT Troponin I 0.792 H* Triglycerides VLDL Cholesterol, Calc HDL Cholesterol Amorphous Sediment 01/18/22 01/18/22 01/18/22 09:20 16:16 17:40 WBC Neutrophils # APTT Sodium Glucose AST ALT Troponin I 169.000 H* Triglycerides 213.00 H VLDL Cholesterol, Calc 42.60 H HDL Cholesterol 36.30 L Amorphous Sediment Rare H 01/18/22 01/18/22 01/19/22 19:58 19:58 05:31 WBC 14.8 H Neutrophils # 11.8 H APTT 35.9 H Sodium Glucose AST ALT Troponin I 200.000 H* Triglycerides VLDL Cholesterol, Calc HDL Cholesterol Amorphous Sediment 01/19/22 01/19/22 01/19/22 05:31 05:31 07:56 WBC Neutrophils # APTT 62.9 H Sodium 134 L Glucose 137 H AST 384 H ALT 69 H Troponin I 79.500 H* Triglycerides VLDL Cholesterol, Calc HDL Cholesterol Amorphous Sediment 01/20/22 07:26 WBC Neutrophils # APTT 33.0 H Sodium Glucose AST ALT Troponin I Triglycerides VLDL Cholesterol, Calc HDL Cholesterol Amorphous Sediment - Diagnostic Findings Chest x-ray: image reviewed Assessment and Plan Assessment: Non-ST segment elevation myocardial infarction. Severe triple-vessel coronary artery disease, with anticipated bypass grafting on 01/22/2022. CAD, with previous PCI, and stent placement. History of hyperlipidemia. No apparent chronic lung disease. History of hypothyroidism. Previous history of tobacco use. Plan: Plan dated 01/20/2022. Today, we explained to the patient, our role in his care. I told him was to follow. Initially, we will work to get him off the mechanical ventilator. Subsequent to that, we'll see him on a daily basis, and keep his lungs healthy. We did talk about the importance of deep breathing, coughing, clearing of secretions, and hourly use of the incentive spirometer. Additional recommendations and suggestions are forthcoming. Prognosis is thought to be generally good. We have yet to see his spirometry. Chest x-ray, labs, and medications are reviewed. Time with Patient: Greater than 30
--- NOTE | 2022-01-20 13:23 | P.PN ---
Subjective Progress Note Date: 01/20/22 Principal diagnosis: Severe triple-vessel coronary artery disease, non-ST elevated myocardial infarction this admission. Past medical history significant for coronary artery disease with remote history of PCI with stent placement to his left anterior descending coronary artery and circumflex coronary artery, hyperlipidemia, thyroid disorder, remote history of nicotine dependence, daily EtOH drinks 1 beer daily and a family history of early onset coronary artery disease with his dad passing away from a myocardial infarction at age 55. The patient was seen and examined in follow-up today 01/20/2022 at his bedside on the cardiac stepdown unit. Currently sitting up to the bedside chair, is awake, alert and oriented 3 and is in no acute apparent distress. Oxygen saturation are 95% on room air and he is achieving 2000 mL on his incentive spirometry with encouragement. Remote telemetry showing sinus bradycardia heart rate 58 BPM. Heparin drip remains infusing per protocol. A repeat troponin was completed yesterday and was trending down at 79.500. The usual course of myocardial revascularization surgery was discussed and reinforced with the patient. His STS risk score was calculated and discussed with the patient. A 5 m walk test was completed today which showed time 1: 2.43 seconds, time 2: 2.82 seconds and time 3: 2.72 seconds. He tolerated the 5 m walk test without difficulty and denies any complaints of shortness of breath or chest pain/pressure at this time. The patient also denies any further complaints of chest pressure throughout the night or this morning. He is tentatively scheduled for myocardial revascularization surgery with left internal mammary artery, possible right internal mammary artery, endoscopic vein harvest, exclusion of left atrial appendage and intraoperative transesophageal echocardiogram for 01/22/2022 to be performed by Dr. Fallon Valadez. He remains on aspirin, statin and beta shantel for maximized medical therapy. The patient's is present at his bedside and their questions have been answered regarding the myocardial revascularization surgery. A bedside FEV1 was completed on 01/18/2022 which showed a predicted value of 83% with a base volume of 2.43 L. Objective - Vital Signs Vital signs: Vital Signs Temp 98.2 F 01/20/22 08:54 Pulse 61 01/20/22 11:00 Resp 16 01/20/22 11:00 BP 104/54 01/20/22 11:00 Pulse Ox 93 L 01/20/22 11:00 FiO2 Intake & Output 01/19/22 01/20/22 01/20/22 18:59 06:59 18:59 Intake Total 913.4 225.8 268.8 Output Total 900 900 Balance 913.4 -674.2 -631.2 Weight 92.8 kg Intake: Intake, IV Titration 153.4 225.8 32.8 Amount Heparin Sod,Pork in 0.45% 153.4 225.8 32.8 NaCl 25,000 unit In 0.45 % NaCl 1 250ml.bag @ 10. 754 UNITS/KG/HR 10 mls/hr IV .Q24H [facility] Rx#: [id number] Oral 760 236 Output: Urine 900 900 Other: Voiding Method Urinal Urinal Urinal # Voids 1 - Exam CONSTITUTIONAL: Sitting up to the bedside chair on the cardiac stepdown unit, appears comfortable, cooperative, no apparent acute distress. HEENT: Neck is supple, no JVD, no lymphadenopathy. RESPIRATORY: Lungs sounds essentially clear throughout, diminished to his bilateral bases. Respirations are symmetrical and nonlabored. Currently on room air with oxygen saturations 95%. Able to achieve 2000 mL on his incentive spirometry. Strong cough. CARDIOVASCULAR: Regular rhythm and rate. S1 and S2 present, negative for S3, gallop or murmur. Palpable peripheral pulses bilaterally. No calf pain or tenderness noted. GASTROINTESTINAL: Abdomen soft, nontender, nondistended. Active bowel sounds present 4 quadrants. Tolerating diet. Passing flatus. No guarding or rigidity. GENITOURINARY: Continues to void. INTEGUMENTARY: Skin is warm and dry with no evidence of clubbing or cyanosis. MUSKULOSKELETAL: Able to move all extremities, strength equal bilaterally. PSYCHIATRIC: Alert and oriented to person place and time, appropriate affect, intact judgment and insight. - Allied health notes Allied health notes reviewed: nursing - Labs CBC & Chem 7: 01/19/22 05:31 01/19/22 05:31 Labs: Abnormal Lab Results - Last 24 Hours (Table) 01/20/22 Range/Units 07:26 APTT 33.0 H (22.0-30.0) sec Microbiology - Last 24 Hours (Table) 01/18/22 17:40 Nasal Screen MRSA/MSSA - Final Nasal Swab Assessment and Plan Assessment: 1. Multivessel coronary artery disease 2. Non-ST elevated myocardial infarction this admission 3. History of coronary artery disease with remote history of PCI to his LAD and circumflex coronary artery 4. Hyperlipidemia 5. Thyroid disorder 6. Remote history of nicotine dependence 7. Daily EtOH use, drinks 1 beer daily 8. Family history of early onset coronary artery disease with his dad from a myocardial infarction at age 55 Plan: 1. He is tentatively scheduled for myocardial revascularization surgery with left internal mammary artery, possible right internal mammary artery, endoscopic vein harvest, exclusion of left atrial appendage and intraoperative transesophageal echocardiogram to be performed by Dr. Fallon Valadez on 01/22/2022. 2. Continue to encourage use of his incentive spirometry 10 times every hour while awake. Dr. Pradhan from pulmonary medicine has been consulted. 3. Continue to reinforce preoperative teaching. 5. A 5 meter walk test was completed. Time 1: 2.43 seconds, time 2: 2.82 seconds and time 3: 2.72 seconds. 6. An STS risk score was calculated and discussed with the patient. 7. He will be nothing by mouth after midnight on 01/22/2022. 8. Continue maximize medical therapy with aspirin, statin and beta shantel. Heparin drip management per cardiology. 9. More recommendations follow based on patient's clinical course. Time with Patient: Greater than 30
--- NOTE | 2022-01-20 16:49 | P.PN ---
Subjective Progress Note Date: 01/20/22 Principal diagnosis: Chest pain Doing well. Denied chest pain currently. No sob, no other complaints. Objective - Vital Signs Vital signs: Vital Signs Temp 98.4 F 01/20/22 16:20 Pulse 62 01/20/22 16:20 Resp 16 01/20/22 16:20 BP 109/67 01/20/22 16:20 Pulse Ox 98 01/20/22 16:20 FiO2 Intake & Output 01/19/22 01/20/22 01/20/22 18:59 06:59 18:59 Intake Total 913.4 225.8 268.8 Output Total 900 1300 Balance 913.4 -674.2 -1031.2 Weight 92.8 kg Intake: Intake, IV Titration 153.4 225.8 32.8 Amount Heparin Sod,Pork in 0.45% 153.4 225.8 32.8 NaCl 25,000 unit In 0.45 % NaCl 1 250ml.bag @ 10. 754 UNITS/KG/HR 10 mls/hr IV .Q24H [facility] Rx#: [id number] Oral 760 236 Output: Urine 900 1300 Other: Voiding Method Urinal Urinal Urinal # Voids 1 - Exam Constitutional: No acute distress, conversant, pleasant Eyes:Anicteric sclerae, moist conjunctiva, no lid-lag, PERRLA, ENMT: Oropharynx clear, no erythema, exudates Neck: Supple, FROM, no masses, or JVD, No carotid bruits, No thyromegaly Lungs: Clear to auscultation, Clear to percussion, Normal respiratory effort, no accessory muscle use Cardiovascular: Heart regular in rate and rhythm, No murmurs, gallops, or rubs, No peripheral edema Abdominal: Soft, Nontender, no guarding, rebound or rigidity, Normoactive bowel sounds, No hepatomegaly, No splenomegaly, No palpable mass Skin: Normal temperature, tone, texture, turgor, no induration, No subcutaneous nodules, No rash, lesions, No ulcers Extremities: No digital cyanosis, No clubbing, Pedal pulses intact and symmetrical, Radial pulses intact and symmetrical, No calf tenderness Psychiatric: Alert and oriented to person, place and time, appropriate affect, intact judgement Neuro: Muscles Strength 5/5 in all 4 extremities, Sensation to light touch grossly present throughout, Cranial nerves II-XII grossly intact, no focal sensory deficits - Labs CBC & Chem 7: 01/19/22 05:31 01/19/22 05:31 Labs: Abnormal Lab Results - Last 24 Hours (Table) 01/20/22 01/20/22 Range/Units 07:26 14:36 APTT 33.0 H 59.7 H (22.0-30.0) sec Microbiology - Last 24 Hours (Table) 01/18/22 17:40 Nasal Screen MRSA/MSSA - Final Nasal Swab Assessment and Plan Plan: Chest pain Non-ST elevation myocardial infarction Continue aspirin and heparin drip Continue statin Telemetry Cardiology following, s/p heart cath which showed 3 vessels disease, was seen by CT surgery for bypass. Tentatively scheduled for Thursday. Chronic systolic CHF Lasix IV. Continue atenolol. Per cardio. Hypothyroidism TSH within therapeutic range Continue levothyroxine. Hyperlipidemia Resume meds
[2022-01-20] MEDS: atenoloL 25 MG TAB PO SCH (20:28)
[2022-01-20] MEDS: ATORVASTATIN 40 MG TAB PO SCH (20:28)
[2022-01-21 05:47] LABS: Basophils # (A) 0.1 k/uL (0-0.2); Basophils % (A) 1 %; Eosinophils # (A) 0.2 k/uL (0-0.7); Eosinophils % (A) 1 %; HCT 42.8 % (39.0-53.0); HGB 13.9 gm/dL (13.0-17.5); Lymphocytes # (A) 2.3 k/uL (1.0-4.8); Lymphocytes % (A) 22 %; MCH 31.4 pg (25.0-35.0); MCHC 32.5 g/dL (31.0-37.0); MCV 96.7 fL (80.0-100.0); Mean Platelet Volume 8.1; Monocytes # (A) 0.9 k/uL (0-1.0); Monocytes % (A) 8 %; Neutrophils # (A) 6.8 k/uL (1.3-7.7); Neutrophils % (A) 66 %; Platelet Count 244 k/uL (150-450); RBC 4.42 m/uL (4.30-5.90); RDW 12.2 % (11.5-15.5); WBC 10.4 k/uL (3.8-10.6)
--- NOTE | 2022-01-21 06:05 | US ---
EXAMINATION TYPE: US vein mapping BILAT DATE OF EXAM: 01/18/2022 4:18 PM COMPARISON: NONE CLINICAL HISTORY: PreOp Cardiac Surgery. Preop SIDE PERFORMED: Bilateral TECHNIQUE: Lower extremity saphenous vein is examined and measured utilizing real time linear array sonography. Patient History: Smoker: N/A Heart Disease: yes Discoloration: no Hypertension: no Paralysis: no Varicosities: no Edema: no DUPLEX FINDINGS: Greater Saphenous: Color flow seen Measurements in mm: Right Greater Saphenous: Groin: 5.3 x 5.9 mm High Thigh: 3.1 x 3.4 mm Mid Thigh: 1.8 x 1.9 mm Above Knee: 2.3 x 2.8 mm Knee: 2.2 x 2.4 mm Below Knee: 2.9 x 1.6 mm Mid Calf: 1.9 x 1.8 mm At Ankle: 2.4 x 1.9 mm Left Greater Saphenous: Groin: 4.1 x 3.4 mm High Thigh: 2.7 x 2.4 mm Mid Thigh: 2.9 x 2.2 mm Above Knee: 2.2 x 2.4 mm Knee: 2.2 x 1.6 mm Below Knee: 1.9 x 2.0 mm Mid Calf: 2.1 x 1.4 mm At Ankle: 1.8 x 1.7 mm IMPRESSION: 1. Bilateral GSV measurements listed above. 2. Performing surgeon to determine viability as conduit.
--- NOTE | 2022-01-21 06:06 | US ---
EXAMINATION TYPE: Pre-Operative Non-Invasive Evaluation of the hand for Potential Radial Artery [address], Measurements only DATE OF EXAM: 01/18/2022 4:18 PM CLINICAL HISTORY: Pre-Op Cardiac Surgery. PreOP SIDE PERFORMED: Bilateral TECHNIQUE: Radial artery is measured utilizing real time linear array sonography. Dominant hand: Right Duplex Findings: Radial Artery: Color flow seen Measurements in mm, transverse view: Right Radial: Proximal: 4.3 x 5.2 mm Mid: 4.2 x 3.3 mm Distal: 4.2 x 3.0 mm Left Radial: Proximal: 2.9 x 2.7 mm Mid: 3.3 x 3.2 mm Distal: 3.2 x 3.0 mm IMPRESSION: 1. Bilateral radial artery measurements listed above. 2. Performing surgeon to determine viability as conduit.
--- NOTE | 2022-01-21 06:07 | US ---
EXAMINATION TYPE: US arterial LE single level DATE OF EXAM: 01/18/2022 6:24 PM CLINICAL HISTORY: Ankle Brachial Index (YAJAIRA) . Pre-OP CABG. History of hypertension and hyperlipidemi a. Doppler Waveforms: Right: Biphasic Left: Biphasic Ankle-Brachial Indices: Right: 1.3 Left: 1.3 Toe Brachial Indices: Right: 1.0 Left: 0.8 IMPRESSION: Normal YAJAIRA and TBI values.
[2022-01-21] MEDS: LEVOTHYROXINE 137 MCG TAB PO SCH (06:25)
[2022-01-21] MEDS: FUROSEMIDE 10 MG/ML 4 ML VIAL IV SCH ×2 (09:02→20:00)
[2022-01-21] MEDS: ASPIRIN 325 MG TAB PO SCH (09:03)
[2022-01-21] MEDS: HEPARIN SOD,PORK IN 0.45% NACL 25,000 UNIT in 0.45% NACL 1 250ML.BAG IV SCH (09:04)
[2022-01-21] MEDS: MUPIROCIN 2% OINT 22 GM TUBE NASAL SCH ×2 (09:05→20:00)
--- NOTE | 2022-01-21 09:56 | P.PN ---
Subjective Progress Note Date: 01/21/22 Principal diagnosis: Chest pain. Pulmonary consult dated 01/20/2022. A 81-year-old male who presented to the emergency department on January 18, complaining of chest pain. Chest pain had been going on for about a week or so and was exertional in nature. More recently, he had constant nonexertional chest pain for 4 hours before admission to the emergency department. He also was having some diaphoresis. There is no vomiting or abdominal pain. The patient was seen in the emergency room, admitted to the hospital with acute coronary syndrome. The pain did radiate up into his jaw and neck. This patient has a history of hyperlipidemia. The patient also smoked for about 15-18 years many years ago. 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 We were asked to see this patient, because he is apparently going to have bypass grafting on Thursday of this week. It appears that he doesn't have any significant lung disease. He denies any shortness of breath. He does not take any breathing medications at home. We have not yet seen his PFTs. White count 14.8, normal hemoglobin, hematocrit, and platelet count. PTT is 33. Sodium 134, potassium 4.3, chlorides 102, CO2 25, BUN 16, creatinine 0.9. Troponin was 200, subsequent troponin was 79.5. Chest x-ray was normal. Progress note dated 01/21/2022. This is a 81-year-old male who came to the emergency department with chest pain. Catheterization revealed significant coronary disease, and he is scheduled for bypass grafting tomorrow. He had lung function done at the bedside, showing an FEV1 that was 83% of predicted. He did smoke in the distant past. He denies any respiratory issues. Currently, the patient's getting saline IV, and IV heparin. He is therapeutic. White count 10.4, hemoglobin 13.9, hematocrit 42.8, and platelet count 244,000. No additional labs to note. Objective - Vital Signs Vital signs: Vital Signs Temp 98.1 F 01/21/22 00:00 Pulse 58 L 01/21/22 04:00 Resp 18 01/21/22 04:00 BP 98/58 01/21/22 04:00 Pulse Ox 95 01/21/22 04:00 FiO2 Intake & Output 01/20/22 01/21/22 01/21/22 18:59 06:59 18:59 Intake Total 386.8 217.2 240 Output Total 1300 1400 Balance -913.2 -1182.8 240 Weight 91.6 kg Intake: Intake, IV Titration 32.8 217.2 Amount Heparin Sod,Pork in 0.45% 32.8 217.2 NaCl 25,000 unit In 0.45 % NaCl 1 250ml.bag @ 10. 754 UNITS/KG/HR 10 mls/hr IV .Q24H [facility] Rx#: [id number] Oral 354 240 Output: Urine 1300 1400 Other: Voiding Method Urinal Urinal - Exam No acute distress, oriented 3. Currently on room air. HEENT examination is grossly unremarkable. Neck supple. Full range of motion. No adenopathy thyromegaly or neck vein distention. Cardiovascular examination reveals regular rhythm rate. S1-S2 normal. No S3 or S4. No discernible murmur noted. Heart rate 58 bpm. Lungs reveal clear breath sounds. Breath sounds are equal bilaterally. No adventitious lung sounds including wheezes rhonchi or crackles. Abdomen soft bowel sounds are heard. No masses or tenderness. Extremities are intact. No cyanosis clubbing or edema. Skin is without rash or lesion. Neurologic examination is brief but nonfocal. - Labs CBC & Chem 7: 01/21/22 05:18 01/19/22 05:31 Labs: Abnormal Lab Results - Last 24 Hours (Table) 01/20/22 01/21/22 01/21/22 Range/Units 14:36 05:18 05:18 APTT 59.7 H 47.2 H (22.0-30.0) sec Crossmatch See Detail Assessment and Plan Assessment: Non-ST segment elevation myocardial infarction. Severe triple-vessel coronary artery disease, with anticipated bypass grafting on 01/22/2022. CAD, with previous PCI, and stent placement. History of hyperlipidemia. No apparent chronic lung disease, with an FEV1 that is 83% of predicted. History of hypothyroidism. Previous history of tobacco use. Plan: Plan dated 01/20/2022. Today, we explained to the patient, our role in his care. I told him was to follow. Initially, we will work to get him off the mechanical ventilator. Subsequent to that, we'll see him on a daily basis, and keep his lungs healthy. We did talk about the importance of deep breathing, coughing, clearing of secretions, and hourly use of the incentive spirometer. Additional recommendations and suggestions are forthcoming. Prognosis is thought to be generally good. We have yet to see his spirometry. Chest x-ray, labs, and medications are reviewed. Plan dated 01/21/2022. The patient spirometry was read by my partner. FEV1 is well over 2 L, and 83% of predicted. The patient should do well from the pulmonary standpoint. We will continue to follow the patient and make recommendations along the way. We do encourage deep breathing, coughing, and clearing of secretions, as well as hourly use of the incentive spirometer. Time with Patient: Less than 30
--- NOTE | 2022-01-21 11:28 | P.PN ---
Subjective Patient is pleasant 81-year-old male with history of coronary artery disease status post PCI to the proximal circumflex and proximal LAD in 07/2000, hyperlipidemia, former nicotine dependence. He follows with Dr. Fritz. We have following the patient secondary to NSTEMI. Patient initially presented to the hospital on 01/18/2022 with complaints of increased shortness of breath and chest tightness after working too much short exerting himself. EKG revealed diffuse ST depressions V1 through V6 as well as in the inferior leads. He was given nitroglycerin however decrease in blood pressure with some mild improvement in chest pain. Troponins later peaked up to 200. 01/18/2022 Patient underwent heart catheterization which showed triple-vessel disease including likely culprit circumflex 99% stenosis with JAK 2-3 flow as well as in-stent stenosis of the LAD and RCA 60% with a PDA 90% stenosis. Additionally LVEDP was extremely elevated at 34. CT Surgery was consulted for evaluation for possible bypass. Echocardiogram revealed EF 40-45% with inferior lateral hypokinesis, trace mitral regurgitation, mild aortic stenosis with a peak/mean gradient of 15 mmHg/9 mmHg 01/21 Patient seen and examined at bedside, no acute distress. He is alert and oriented 3. Denies any chest pain or shortness of breath. Vital signs are stable. Blood pressure 92/62, heart 65, afebrile, saturation 94% room air. Patient is overall doing well, no complaints. Patient is maintaining sinus mechanism with heart rates in the 60s. He continues to be on IV Lasix 40mg BID PHYSICAL EXAMINATION Vital signs reviewed. CONSTITUTIONAL: No apparent distress. HEENT: Head is normocephalic.Neck Supple. No JVD. CHEST EXAMINATION: Lungs are clear to auscultation. No chest wall tenderness is noted on palpation or with deep breathing. HEART EXAMINATION: Regular rate and rhythm. S1, S2 heard. No murmurs, gallops or rub. ABDOMEN: Soft, nontender. Positive bowel sounds. EXTREMITIES: 2+ peripheral pulses, no lower extremity edema and no calf tenderness. SKIN: right radial cath site, clean dry and intact 2+ pulses NEUROLOGIC EXAMINATION: Patient is awake, alert and oriented x3. ASSESSMENT Non-STEMI with left heart catheterization showing triple-vessel disease Hypotension after administering nitroglycerin, improved Acute on chronic heart failure with mildly reduced ejection fraction Hyperlipidemia Coronary artery disease with prior history of PCI of the proximal circumflex and proximal LAD in 07/2000 Ischemic cardiomyopathy EF 40-45% Former nicotine dependence PLAN Continue with aspirin and heparin drip Continue statin Add heart failure regimen as able Continue IV Lasix for additional 24 hours, with extremely elevated LVEDP CT surgery following with possible CABG Thursday01/22/2022 Further recommendations to follow Nurse practitioner note has been reviewed by physician. Signing provider agrees with the documented findings, assessment, and plan of care. Objective - Vital Signs Vital signs: Vital Signs Temp 98.1 F 01/21/22 00:00 Pulse 58 L 01/21/22 04:00 Resp 18 01/21/22 04:00 BP 98/58 01/21/22 04:00 Pulse Ox 95 01/21/22 04:00 FiO2 Intake & Output 01/20/22 01/21/22 01/21/22 18:59 06:59 18:59 Intake Total 386.8 217.2 Output Total 1300 1400 Balance -913.2 -1182.8 Weight 91.6 kg Intake: Intake, IV Titration 32.8 217.2 Amount Heparin Sod,Pork in 0.45% 32.8 217.2 NaCl 25,000 unit In 0.45 % NaCl 1 250ml.bag @ 10. 754 UNITS/KG/HR 10 mls/hr IV .Q24H [facility] Rx#: [id number] Oral 354 Output: Urine 1300 1400 Other: Voiding Method Urinal Urinal - Labs CBC & Chem 7: 01/21/22 05:18 01/19/22 05:31 Labs: Abnormal Lab Results - Last 24 Hours (Table) 01/20/22 01/20/22 01/21/22 Range/Units 07:26 14:36 05:18 APTT 33.0 H 59.7 H 47.2 H (22.0-30.0) sec
--- NOTE | 2022-01-21 14:32 | P.PN ---
Subjective Progress Note Date: 01/21/22 Principal diagnosis: Chest pain Doing well, no chest pain or sob. Objective - Vital Signs Vital signs: Vital Signs Temp 98.2 F 01/21/22 11:45 Pulse 78 01/21/22 11:45 Resp 16 01/21/22 11:45 BP 98/64 01/21/22 11:45 Pulse Ox 95 01/21/22 11:45 FiO2 Intake & Output 01/20/22 01/21/22 01/21/22 18:59 06:59 18:59 Intake Total 386.8 217.2 360 Output Total 1300 1400 550 Balance -913.2 -1182.8 -190 Weight 91.6 kg Intake: Intake, IV Titration 32.8 217.2 Amount Heparin Sod,Pork in 0.45% 32.8 217.2 NaCl 25,000 unit In 0.45 % NaCl 1 250ml.bag @ 10. 754 UNITS/KG/HR 10 mls/hr IV .Q24H [facility] Rx#: [id number] Oral 354 360 Output: Urine 1300 1400 550 Other: Voiding Method Urinal Urinal - Exam Constitutional: No acute distress, conversant, pleasant Eyes:Anicteric sclerae, moist conjunctiva, no lid-lag, PERRLA, ENMT: Oropharynx clear, no erythema, exudates Neck: Supple, FROM, no masses, or JVD, No carotid bruits, No thyromegaly Lungs: Clear to auscultation, Clear to percussion, Normal respiratory effort, no accessory muscle use Cardiovascular: Heart regular in rate and rhythm, No murmurs, gallops, or rubs, No peripheral edema Abdominal: Soft, Nontender, no guarding, rebound or rigidity, Normoactive bowel sounds, No hepatomegaly, No splenomegaly, No palpable mass Skin: Normal temperature, tone, texture, turgor, no induration, No subcutaneous nodules, No rash, lesions, No ulcers Extremities: No digital cyanosis, No clubbing, Pedal pulses intact and symmetrical, Radial pulses intact and symmetrical, No calf tenderness Psychiatric: Alert and oriented to person, place and time, appropriate affect, intact judgement Neuro: Muscles Strength 5/5 in all 4 extremities, Sensation to light touch grossly present throughout, Cranial nerves II-XII grossly intact, no focal sensory deficits - Labs CBC & Chem 7: 01/21/22 05:18 01/19/22 05:31 Labs: Abnormal Lab Results - Last 24 Hours (Table) 01/20/22 01/21/22 01/21/22 Range/Units 14:36 05:18 05:18 APTT 59.7 H 47.2 H (22.0-30.0) sec Crossmatch See Detail Assessment and Plan Plan: Chest pain Non-ST elevation myocardial infarction Continue aspirin and heparin drip Continue statin Telemetry Cardiology following, s/p heart cath which showed 3 vessels disease, was seen by CT surgery for bypass. Tentatively scheduled for Thursday. Chronic systolic CHF Lasix IV. Continue atenolol. Per cardio. Hypothyroidism TSH within therapeutic range Continue levothyroxine. Hyperlipidemia Resume meds
[2022-01-21] MEDS: MULTIVITAMINS, THERA 1 EACH TAB PO SCH (16:11)
[2022-01-21] MEDS: THIAMINE 100 MG TAB PO SCH (16:11)
[2022-01-21] MEDS: ATORVASTATIN 40 MG TAB PO SCH (20:00)
[2022-01-21] MEDS: atenoloL 25 MG TAB PO SCH (20:00)
[2022-01-22] MEDS ORDERED: METOPROLOL TARTRATE 12.5 MG TAB PO ONE (05:00)
[2022-01-22] MEDS ORDERED: HEPARIN SODIUM 1,000 UN/ML (10ML VL) IV ONE (05:00)
[2022-01-22] MEDS ORDERED: ELECTROLYTE-A SOLUTION 1,000 ML with POTASSIUM CHLORIDE 40 MEQ, MAGNESIUM SULFATE 16 ME... IV SCH ×5 (05:00)
[2022-01-22] MEDS ORDERED: CALCIUM CHLORIDE 100 MG/ML 10 ML SYRINGE IVP ONE (05:00)
[2022-01-22] MEDS ORDERED: MAGNESIUM SULFATE 16.24 MEQ in EMPTY SYRINGE 1 SYR IV ONE (05:00)
[2022-01-22] MEDS ORDERED: CLEVIDIPINE BUTYRATE 25 MG in EMPTY BAG 1 BAG IV SCH (05:00)
[2022-01-22] MEDS ORDERED: CHLORHEXIDINE GLUCONATE 15 ML CUP MUCOUS MEM ONE (05:00)
[2022-01-22] MEDS ORDERED: ALBUMIN HUMAN 25% 50 ML in EMPTY BAG 1 BAG IVPB ONE (05:00)
[2022-01-22] MEDS ORDERED: MANNITOL 25% 12.5 GM/50 ML VIAL IV ONE ×2 (05:00)
[2022-01-22] MEDS ORDERED: TRANEXAMIC ACID 2,000 MG in SODIUM CHLORIDE 0.9% 80 ML IV ONE ×4 (05:00)
[2022-01-22] MEDS ORDERED: SODIUM BICARB 8.4% 50 ML SYR (1 MEQ/ML) IV ONE (05:00)
[2022-01-22] MEDS ORDERED: PAPAVERINE 360 MG in SODIUM CHLORIDE 0.9% 90 ML IV ONE (05:00)
[2022-01-22] MEDS ORDERED: NITROGLYCERIN-D5W PMX 50 MG in DEXTROSE/WATER 1 250ML.BAG IV SCH (05:00)
[2022-01-22] MEDS ORDERED: ELECTROLYTE-A SOLUTION 1,000 ML with POTASSIUM CHLORIDE 100 MEQ, MAGNESIUM SULFATE 16 M... IV SCH ×5 (05:00)
[2022-01-22] MEDS ORDERED: NITROGLYCERIN-D5W PMX 25 MG/250 ML BTL IV ONE (05:00)
[2022-01-22] MEDS ORDERED: PHENYLEPHRINE 40 MG in SODIUM CHLORIDE 0.9% 250 ML IV ONE (05:00)
[2022-01-22] MEDS ORDERED: HEPARIN SODIUM,PORCINE 5,000 UNIT in SODIUM CHLORIDE 0.9% 500 ML 500 ML IV ONE (05:00)
[2022-01-22] MEDS ORDERED: ceFAZolin 1,000 MG in SODIUM CHLORIDE 0.9% IRRIGATIO 1,000 ML IRRIGATION ONE (05:00)
[2022-01-22] MEDS ORDERED: NOREPINEPHRINE 4 MG in SODIUM CHLORIDE 0.9% 250 ML IV SCH (05:00)
[2022-01-22] MEDS ORDERED: ATORVASTATIN 10 MG TAB PO ONE (05:00)
[2022-01-22] MEDS ORDERED: ALBUMIN HUMAN 5% 500 ML in EMPTY BAG 1 BAG IVPB ONE ×6 (05:00)
[2022-01-22] MEDS ORDERED: ASPIRIN 325 MG TAB PO ONE (05:00)
[2022-01-22] MEDS ORDERED: PROTAMINE SULFATE 10 MG/ML 25 ML VIAL IV ONE (05:00)
[2022-01-22] MEDS ORDERED: PROTAMINE SULFATE 250 MG in EMPTY BAG 1 BAG IV ONE (05:00)
[2022-01-22] MEDS ORDERED: LACTATED RINGERS 1,000 ML IV ONE (06:18)
[2022-01-22 06:23] LABS: Glucose,Whole Blood 111 mg/dL (70-110)
[2022-01-22] MEDS ORDERED: NITROGLYCERIN-D5W PMX 50 MG/250 ML BOTTLE IV ONE (07:30)
[2022-01-22] MEDS ORDERED: LIDOCAINE 2% SYG (PF) 100 MG/5 ML ONE (07:30)
[2022-01-22] MEDS ORDERED: WATER FOR INJECTION, STERILE 10 ML VIAL IV ONE (07:30)
[2022-01-22] MEDS ORDERED: PROPOFOL 10 MG/ML 20 ML VIAL IV ONE (07:30)
[2022-01-22] MEDS ORDERED: fentaNYL (PF) 50 MCG/ML 50 ML VIAL ONE (07:30)
[2022-01-22] MEDS ORDERED: MAGNESIUM SULFATE 4 MEQ/ML 10ML VIAL ONE (07:30)
[2022-01-22] MEDS ORDERED: HEPARIN SODIUM,PORCINE 10,000 UNIT/ML 1 ML VIAL ONE (07:30)
[2022-01-22] MEDS ORDERED: MIDAZOLAM HCL 10 MG/10 ML VIAL ONE (07:30)
[2022-01-22] MEDS ORDERED: PHENYLEPHRINE-0.9% NACL SYG 1,000 MCG/10 ML SYRINGE ONE (07:30)
[2022-01-22] MEDS ORDERED: TRANEXAMIC ACID IN NACL,ISO-OS 1,000 MG/100 ML BAG ONE (07:30)
[2022-01-22] MEDS ORDERED: VECURONIUM 10 MG VIAL IV ONE (07:30)
[2022-01-22] MEDS ORDERED: GLYCOPYRROLATE 0.2 MG/ML 2 ML VIAL ONE (07:30)
[2022-01-22] MEDS ORDERED: ePHEDrine 50 MG/ML 1 ML VIAL ONE (07:30)
[2022-01-22 08:59] LABS: ABG Base Excess 3.6 mmol/L; ABG Glucose Whole Blood 108 mg/dL (75-99); ABG HCO3 28 mmol/L (21-25); ABG Hematocrit 40 % (34.0-46.0); ABG Ionized Calcium 4.7 mg/dL (4.5-5.3); ABG Lactic Acid Whole Blood 0.6 mmol/L (0.5-1.6); ABG Oxygen Saturation 99.8 % (94-97); ABG PCO2 40 mmHg (35-45); ABG PH 7.45 (7.35-7.45); ABG PO2 206 mmHg (83-108); ABG Potassium Whole Blood 3.4 mmol/L (3.4-4.5); ABG Sodium Whole Blood 135 mmol/L (135-146); ABG TCO2 29 mmol/L (19-24)
[2022-01-22] MEDS ORDERED: PHENYLEPHRINE 10 MG/ML VIAL IV ONE (09:03)
[2022-01-22] MEDS ORDERED: INSULIN REGULAR 100 UNIT in SODIUM CHLORIDE 0.9% 100 ML IV SCH ×2 (09:15→15:00)
--- NOTE | 2022-01-22 10:03 | P.ANPRN ---
Procedure Note - Anesthesia - Invasive Line Right Arterial Line Time Out Performed: Yes Date of Procedure: 01/22/22 Time of Procedure: 07:15 Location of Patient: PreOp Preparation: Sterile Prep, Sterile Dressing Arterial Line Location: Radial Ultrasound Used: No Needle Guage: 20 Narrative: Right radial arterial line placed by FORM GRADER under sterile conditions Right Central Line Time Out Performed: Yes Date of Procedure: 01/22/22 Time of Procedure: 07:25 Location of Patient: PreOp Preparation: Sterile Prep, Sterile Dressing Ultrasound Used: Yes Purpose - Visualization and Identification of Vasculature: Yes Needle Guage: 18 Image Stored and Saved: Yes Narrative: Central line placement per sterile protocol utilized. 9 F cordis under u/s guidance using Seldinger technique Right Derby Joaquina Time Out Performed: Yes Date of Procedure: 01/22/22 Time of Procedure: 07:30 Location of Patient: PreOp Preparation: Sterile Prep, Sterile Dressing Narrative: SWAN had all ports flushed and balloon tested. Advanced to RV and then PA waveforms. Secured at 43 cm. Balloon deflated
[2022-01-22 10:25] LABS: ABG Base Excess 1.6 mmol/L; ABG Glucose Whole Blood 121 mg/dL (75-99); ABG HCO3 26 mmol/L (21-25); ABG Hematocrit 38 % (34.0-46.0); ABG Ionized Calcium 4.7 mg/dL (4.5-5.3); ABG Lactic Acid Whole Blood 0.8 mmol/L (0.5-1.6); ABG Oxygen Saturation 99.2 % (94-97); ABG PCO2 41 mmHg (35-45); ABG PH 7.42 (7.35-7.45); ABG PO2 188 mmHg (83-108); ABG Potassium Whole Blood 3.3 mmol/L (3.4-4.5); ABG Sodium Whole Blood 135 mmol/L (135-146); ABG TCO2 28 mmol/L (19-24)
--- NOTE | 2022-01-22 11:53 | P.PN ---
Subjective Progress Note Date: 01/22/22 Principal diagnosis: Chest pain. Pulmonary consult dated 01/20/2022. A 81-year-old male who presented to the emergency department on January 18, complaining of chest pain. Chest pain had been going on for about a week or so and was exertional in nature. More recently, he had constant nonexertional chest pain for 4 hours before admission to the emergency department. He also was having some diaphoresis. There is no vomiting or abdominal pain. The patient was seen in the emergency room, admitted to the hospital with acute coronary syndrome. The pain did radiate up into his jaw and neck. This patient has a history of hyperlipidemia. The patient also smoked for about 15-18 years many years ago. 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 We were asked to see this patient, because he is apparently going to have bypass grafting on Thursday of this week. It appears that he doesn't have any significant lung disease. He denies any shortness of breath. He does not take any breathing medications at home. We have not yet seen his PFTs. White count 14.8, normal hemoglobin, hematocrit, and platelet count. PTT is 33. Sodium 134, potassium 4.3, chlorides 102, CO2 25, BUN 16, creatinine 0.9. Troponin was 200, subsequent troponin was 79.5. Chest x-ray was normal. Progress note dated 01/21/2022. This is a 81-year-old male who came to the emergency department with chest pain. Catheterization revealed significant coronary disease, and he is scheduled for bypass grafting tomorrow. He had lung function done at the bedside, showing an FEV1 that was 83% of predicted. He did smoke in the distant past. He denies any respiratory issues. Currently, the patient's getting saline IV, and IV heparin. He is therapeutic. White count 10.4, hemoglobin 13.9, hematocrit 42.8, and platelet count 244,000. No additional labs to note. Progress note dated 01/22/2022. 81-year-old male to undergo bypass grafting today. The patient will eventually end up back in the intensive care unit, where we will attempt to get him extubated as soon as possible. The patient's lung function was excellent. He should do well with surgery. No new labs this morning other than a glucose of 111. Objective - Vital Signs Vital signs: Vital Signs Temp 97.2 F L 01/22/22 06:19 Pulse 64 01/22/22 06:19 Resp 16 01/22/22 06:19 BP 113/77 01/22/22 06:19 Pulse Ox 96 01/22/22 06:19 FiO2 Intake & Output 01/21/22 01/22/22 01/22/22 18:59 06:59 18:59 Intake Total 480 100 53 Output Total 550 Balance -70 100 53 Weight 91.2 kg Intake: IV 100 53 Oral 480 Output: Urine 550 - Exam No acute distress, oriented 3. Currently on room air. HEENT examination is grossly unremarkable. Neck supple. Full range of motion. No adenopathy thyromegaly or neck vein distention. Cardiovascular examination reveals regular rhythm rate. S1-S2 normal. No S3 or S4. No discernible murmur noted. Heart rate 66 bpm. Lungs reveal clear breath sounds. Breath sounds are equal bilaterally. No adventitious lung sounds including wheezes rhonchi or crackles. Abdomen soft bowel sounds are heard. No masses or tenderness. Extremities are intact. No cyanosis clubbing or edema. Skin is without rash or lesion. Neurologic examination is brief but nonfocal. - Labs CBC & Chem 7: 01/21/22 05:18 01/19/22 05:31 Labs: Abnormal Lab Results - Last 24 Hours (Table) 01/21/22 01/22/22 Range/Units 05:18 06:21 POC Glucose (mg/dL) 111 H (70-110) mg/dL Crossmatch See Detail Assessment and Plan Assessment: Non-ST segment elevation myocardial infarction. Severe triple-vessel coronary artery disease, with bypass grafting on 01/22/2022. CAD, with previous PCI, and stent placement. History of hyperlipidemia. No apparent chronic lung disease, with an FEV1 that is 83% of predicted. History of hypothyroidism. Previous history of tobacco use. Plan: Plan dated 01/20/2022. Today, we explained to the patient, our role in his care. I told him was to follow. Initially, we will work to get him off the mechanical ventilator. Subsequent to that, we'll see him on a daily basis, and keep his lungs healthy. We did talk about the importance of deep breathing, coughing, clearing of secretions, and hourly use of the incentive spirometer. Additional recommenda tions and suggestions are forthcoming. Prognosis is thought to be generally good. We have yet to see his spirometry. Chest x-ray, labs, and medications are reviewed. Plan dated 01/21/2022. The patient spirometry was read by my partner. FEV1 is well over 2 L, and 83% of predicted. The patient should do well from the pulmonary standpoint. We will continue to follow the patient and make recommendations along the way. We do encourage deep breathing, coughing, and clearing of secretions, as well as hourly use of the incentive spirometer. Plan dated 01/22/2022. The patient will be seen back in the ICU, once he gets back from the operating room. Additional recommendations and suggestions are forthcoming. We'll attempt to get the patient extubated as soon as possible. Labs, x-rays, and medications are reviewed. We will continue to follow and make recommendations along the way. Time with Patient: Less than 30
[2022-01-22 11:56] LABS: ABG Base Excess 0.9 mmol/L; ABG Glucose Whole Blood 125 mg/dL (75-99); ABG HCO3 26 mmol/L (21-25); ABG Hematocrit 30 % (34.0-46.0); ABG Ionized Calcium 4.2 mg/dL (4.5-5.3); ABG Lactic Acid Whole Blood 1.1 mmol/L (0.5-1.6); ABG Oxygen Saturation 99.8 % (94-97); ABG PCO2 41 mmHg (35-45); ABG PH 7.41 (7.35-7.45); ABG PO2 295 mmHg (83-108); ABG Potassium Whole Blood 4.2 mmol/L (3.4-4.5); ABG Sodium Whole Blood 133 mmol/L (135-146); ABG TCO2 27 mmol/L (19-24)
[2022-01-22 12:27] LABS: ABG Base Excess 0.5 mmol/L; ABG Glucose Whole Blood 131 mg/dL (75-99); ABG HCO3 26 mmol/L (21-25); ABG Hematocrit 31 % (34.0-46.0); ABG Ionized Calcium 4.3 mg/dL (4.5-5.3); ABG Lactic Acid Whole Blood 1.2 mmol/L (0.5-1.6); ABG Oxygen Saturation 99.6 % (94-97); ABG PCO2 44 mmHg (35-45); ABG PH 7.38 (7.35-7.45); ABG PO2 299 mmHg (83-108); ABG Potassium Whole Blood 4.3 mmol/L (3.4-4.5); ABG Sodium Whole Blood 134 mmol/L (135-146); ABG TCO2 27 mmol/L (19-24)
[2022-01-22 13:05] LABS: ABG Base Excess 0.7 mmol/L; ABG Glucose Whole Blood 142 mg/dL (75-99); ABG HCO3 26 mmol/L (21-25); ABG Hematocrit 31 % (34.0-46.0); ABG Ionized Calcium 4.7 mg/dL (4.5-5.3); ABG Lactic Acid Whole Blood 1.1 mmol/L (0.5-1.6); ABG Oxygen Saturation 96.9 % (94-97); ABG PCO2 41 mmHg (35-45); ABG PO2 90 mmHg (83-108); ABG Potassium Whole Blood 3.9 mmol/L (3.4-4.5); ABG Sodium Whole Blood 134 mmol/L (135-146); ABG TCO2 27 mmol/L (19-24)
[2022-01-22] MEDS ORDERED: CALCIUM GLUCONATE IN NACL 2 GM in SALINE 1 100ML.BAG IVPB PRN (14:00)
[2022-01-22] MEDS ORDERED: Magnesium Replacement Protocol 1 EACH MISC MISCELLANE PRN (14:00)
[2022-01-22] MEDS ORDERED: ONDANSETRON 4 MG/2 ML VIAL IVP PRN (14:00)
[2022-01-22] MEDS ORDERED: DEXTROSE 50% SYRINGE 50 ML IVP PRN ×2 (14:00)
[2022-01-22] MEDS ORDERED: AMIODARONE 450 MG in DEXTROSE 5% IN WATER 250 ML IV PRN ×2 (14:00)
[2022-01-22] MEDS ORDERED: METOCLOPRAMIDE 5 MG/ML 2 ML VIAL IVP PRN (14:00)
[2022-01-22] MEDS ORDERED: Potassium Replacement Protocol 1 EACH MISC MISCELLANE PRN (14:00)
[2022-01-22] MEDS ORDERED: AMIODARONE 360 MG in DEXTROSE 5% IN WATER 200 ML IV PRN ×2 (14:00)
[2022-01-22] MEDS ORDERED: IPRATROPIUM-ALBUTEROL 3 ML NEB INHALATION PRN (14:00)
[2022-01-22] MEDS ORDERED: BENZOCAINE/MENTHOL LOZENG 1 EACH LOZENGE MUCOUS MEM PRN (14:00)
[2022-01-22] MEDS ORDERED: Phosphorus Replacement Protoco 1 EACH MISC MISCELLANE PRN (14:00)
--- NOTE | 2022-01-22 14:03 | P.ANPRN ---
Procedure Note - Anesthesia - HAZEL Intraop Pre Bypass HAZEL Intraop - Anesthesia Indication: CAD, Date of Procedure: 01/22/22 Pre-operative Diagnosis: CAD, Post-operative Diagnosis: CAD Surgeon: Fallon Valadez Left Ventricle: EF 45 Regional Wall Motion Abnormalities: Other (Hypokinesis anterior and anterolateral mariano) Left Ventricle Hypertrophy: No R. Ventricle Function: Normal Anatomy: Trileaflet Aortic Stenosis: None Aortic Regurgitation: None Other Findings: Calcified, immobile LCC, but gradients do not suggest stenosis Mitral Stenosis: None Mitral Regurgitation: Trace Tricuspid Stenosis: None Tricuspid Regurgitation: None Pulmonic Stenosis: None Pulmonic Regurgitation: None R. Atrial Dilation: No R. Atrial PFO: No L. Atrial Dilation: No Aortic Dissection: No Aortic Calcification: Mild Plural Effusion: None - HAZEL Intraop Post Bypass HAZEL Intraop Post Bypass Procedure Performed: CABG Left Ventricle: EF 50% Ejection Fraction: Normal Regional Wall Motion Abnormalities: Other (imporoved hypokinesis anterior and anterolateral mariano) R. Ventricle Function: Normal Aortic Valve: Unchanged Mitral Valve: Unchanged Tricuspid: Unchanged Pulmonic: Unchanged Aortic Dissection: No
[2022-01-22 14:09] LABS: Glucose,Whole Blood 132 mg/dL (70-110)
--- NOTE | 2022-01-22 14:24 | XR ---
EXAMINATION TYPE: XR chest 1V portable DATE OF EXAM: 01/22/2022 COMPARISON: 01/18/2022 HISTORY: Postop TECHNIQUE: Single frontal view of the chest is obtained. FINDINGS: ET tube approximately 2.5 cm above susan. [place]-Joaquina catheter is seen in the pulmonary out flow tract. NG tube noted. Bilateral consolidation and small effusion. Less than 5% pneumothorax. Art hropathy of the shoulders. Atherosclerotic change aorta. Postoperative changes. IMPRESSION: 1. Bilateral infiltrate and pleural effusion. 2. Less than 5% left apical pneumothorax suspected.
[2022-01-22 14:29] LABS: Basophils # (A) 0.1 k/uL (0-0.2); Basophils % (A) 0 %; Eosinophils # (A) 0.1 k/uL (0-0.7); Eosinophils % (A) 1 %; HCT 35.3 % (39.0-53.0); HGB 11.9 gm/dL (13.0-17.5); Lymphocytes # (A) 1.5 k/uL (1.0-4.8); Lymphocytes % (A) 13 %; MCH 32.5 pg (25.0-35.0); MCHC 33.6 g/dL (31.0-37.0); MCV 96.8 fL (80.0-100.0); Mean Platelet Volume 7.9; Monocytes # (A) 0.5 k/uL (0-1.0); Monocytes % (A) 4 %; Neutrophils # (A) 9.6 k/uL (1.3-7.7); Neutrophils % (A) 82 %; Platelet Count 185 k/uL (150-450); RBC 3.65 m/uL (4.30-5.90); RDW 12.1 % (11.5-15.5); WBC 11.7 k/uL (3.8-10.6)
[2022-01-22 14:40] LABS: ABG Base Excess 1.7 mmol/L; ABG HCO3 27 mmol/L (21-25); ABG PCO2 45 mmHg (35-45); ABG PH 7.39 (7.35-7.45); ABG PO2 196 mmHg (83-108); ABG TCO2 28 mmol/L (19-24)
[2022-01-22 14:41] LABS: Allen Test Performed? no
[2022-01-22 14:44] LABS: Partial Thromboplastin Time 25.6 sec (22.0-30.0); Prothrombin Time 10.7 sec (9.0-12.0)
[2022-01-22] MEDS: LEVOTHYROXINE 137 MCG TAB PO SCH (14:57)
[2022-01-22] MEDS: NITROGLYCERIN-D5W PMX 50 MG in DEXTROSE/WATER 1 250ML.BAG IV SCH (14:57)
[2022-01-22] MEDS: THIAMINE 100 MG TAB PO SCH ×2 (14:57→18:39)
[2022-01-22] MEDS: SODIUM CHLORIDE 0.9% 1,000 ML IV SCH (14:57)
[2022-01-22] MEDS: MULTIVITAMINS, THERA 1 EACH TAB PO SCH (14:58)
[2022-01-22] MEDS: CLEVIDIPINE BUTYRATE 25 MG in EMPTY BAG 1 BAG IV SCH (15:00)
[2022-01-22 15:08] LABS: ALT 26 U/L (4-49); AST 75 U/L (17-59); African American GFR (CKD) >90 (>60 ml/min/1.73 sqM); Albumin 2.8 g/dL (3.5-5.0); Alkaline Phosphatase 56 U/L (38-126); Anion Gap 10 mmol/L; Blood Urea Nitrogen 20 mg/dL (9-20); Calcium 8.5 mg/dL (8.4-10.2); Carbon Dioxide 24 mmol/L (22-30); Chloride 100 mmol/L (98-107); Glucose 122 mg/dL (74-99); Magnesium 2.5 mg/dL (1.6-2.3); Non-African American GFR(CKD) 82 (>60 ml/min/1.73 sqM); Potassium 3.9 mmol/L (3.5-5.1); Sodium 134 mmol/L (137-145); Total Bilirubin 0.7 mg/dL (0.2-1.3)
[2022-01-22] MEDS: ALBUMIN HUMAN 5% 250 ML in EMPTY BAG 1 BAG IVPB PRN ×5 (15:14→20:45)
[2022-01-22 15:15] LABS: Glucose,Whole Blood 105 mg/dL (70-110)
[2022-01-22] MEDS: ACETAMINOPHEN IV (For NPO) 1,000 MG in EMPTY BAG 1 BAG IVPB SCH ×2 (15:40→21:39)
[2022-01-22] MEDS ORDERED: IPRATROPIUM-ALBUTEROL 3 ML NEB INHALATION SCH (16:00)
[2022-01-22 16:10] LABS: Glucose,Whole Blood 133 mg/dL (70-110)
[2022-01-22] MEDS ORDERED: DEXMEDETOMIDINE/0.9% NACL(PMX) 400 MCG in EMPTY BAG 1 BAG IV SCH (16:13)
[2022-01-22 16:39] LABS: Basophils % (A) 0 %; Eosinophils # (A) 0.1 k/uL (0-0.7); Eosinophils % (A) 0 %; HCT 37.2 % (39.0-53.0); HGB 12.6 gm/dL (13.0-17.5); Lymphocytes # (A) 1.6 k/uL (1.0-4.8); Lymphocytes % (A) 13 %; MCH 33.4 pg (25.0-35.0); MCHC 33.9 g/dL (31.0-37.0); MCV 98.6 fL (80.0-100.0); Mean Platelet Volume 8.3; Monocytes # (A) 0.6 k/uL (0-1.0); Monocytes % (A) 5 %; Neutrophils # (A) 9.6 k/uL (1.3-7.7); Neutrophils % (A) 80 %; Platelet Count 245 k/uL (150-450); RBC 3.77 m/uL (4.30-5.90); RDW 12.6 % (11.5-15.5); WBC 12.1 k/uL (3.8-10.6)
[2022-01-22] MEDS: DEXMEDETOMIDINE/0.9% NACL(PMX) 400 MCG in EMPTY BAG 1 BAG IV SCH (16:53)
[2022-01-22 17:05] LABS: Glucose,Whole Blood 102 mg/dL (70-110)
[2022-01-22 18:15] LABS: Glucose,Whole Blood 137 mg/dL (70-110)
[2022-01-22] MEDS: KETOROLAC 15 MG/ML 1 ML VIAL IVP SCH (18:39)
[2022-01-22 18:57] LABS: Glucose,Whole Blood 147 mg/dL (70-110)
[2022-01-22 19:08] LABS: Basophils % (A) 0 %; Eosinophils % (A) 0 %; HCT 31.4 % (39.0-53.0); HGB 10.4 gm/dL (13.0-17.5); Lymphocytes # (A) 0.6 k/uL (1.0-4.8); Lymphocytes % (A) 6 %; MCH 32.4 pg (25.0-35.0); MCHC 33.2 g/dL (31.0-37.0); MCV 97.7 fL (80.0-100.0); Mean Platelet Volume 9.1; Monocytes # (A) 0.4 k/uL (0-1.0); Monocytes % (A) 4 %; Neutrophils # (A) 8.4 k/uL (1.3-7.7); Neutrophils % (A) 88 %; Platelet Count 198 k/uL (150-450); RBC 3.21 m/uL (4.30-5.90); RDW 12.2 % (11.5-15.5); WBC 9.6 k/uL (3.8-10.6)
[2022-01-22] MEDS: IPRATROPIUM-ALBUTEROL 3 ML NEB INHALATION SCH (19:14)
[2022-01-22] MEDS ORDERED: POTASSIUM BICARBONATE/CIT AC 20 MEQ TABLET.EFF NG-TUBE SCH (20:00)
[2022-01-22 20:17] LABS: Glucose,Whole Blood 138 mg/dL (70-110)
[2022-01-22 21:05] LABS: Glucose,Whole Blood 139 mg/dL (70-110)
[2022-01-22 21:50] LABS: ABG Base Excess -1.1 mmol/L; ABG HCO3 24 mmol/L (21-25); ABG Oxygen Saturation 98.7 % (94-97); ABG PCO2 42 mmHg (35-45); ABG PH 7.37 (7.35-7.45); ABG PO2 107 mmHg (83-108); ABG TCO2 26 mmol/L (19-24)
[2022-01-22 21:53] LABS: Allen Test Performed? No
[2022-01-22 22:08] LABS: Glucose,Whole Blood 142 mg/dL (70-110)
[2022-01-22 23:06] LABS: Glucose,Whole Blood 140 mg/dL (70-110)
--- NOTE | 2022-01-22 23:23 | OP ---
OPERATIVE REPORT DATE OF SURGERY: 01/22/2022 SURGEON: Fallon Valadez MD COMPUTER LANGUAGE CODER: Ronni Garcia PREOPERATIVE DIAGNOSES: Non ST elevation myocardial infarction, prior myocardial infarction, mild to moderate left ventricular dysfunction, hypertension, alcohol intake, hyperthyroidism. POSTOPERATIVE DIAGNOSES: Non ST elevation myocardial infarction, prior myocardial infarction, mild to moderate left ventricular dysfunction, hypertension, alcohol intake, hyperthyroidism with diffuse calcific coronary artery disease. PROCEDURES PERFORMED: 1. Triple-vessel coronary artery bypass grafting using the left internal mammary artery to the left anterior descending artery, reverse saphenous vein graft from the aorta to the posterior descending artery, reverse saphenous vein graft from the aorta to the obtuse marginal artery. 2. Exclusion of the left atrial appendage using a 35 mm AtriClip. 3. Endoscopic harvesting of the left greater saphenous vein. 4. Intraoperative graft flow measurements using the ChirpVision system. 5. Intraoperative transesophageal echocardiogram and epiaortic scanning. INDICATIONS FOR PROCEDURE: The patient is a 81-year-old gentleman, who was admitted with chest pain and ruled in for non ST elevation myocardial infarction. Cardiac catheterization showed triple- vessel disease diffusely and calcific. The patient had prior stenting and had prior myocardial infarction. LV function was estimated at around 40% to 45%. No significant valvular abnormalities. The patient has been taken after period of stabilization and optimization for triple-vessel coronary artery bypass grafting. The STS risk was discussed with him and his family. They understood it and agreed to proceed. DESCRIPTION OF PROCEDURE: The patient in supine position in the preoperative holding area. Right internal jugular [place]-Joaquina catheter and a right radial arterial line were placed. His cardiac index was 2.6 and the PA pressure was 31/11. Subsequently he was brought to the operating room, where general endotracheal anesthesia was induced uneventfully. Coelho catheter was inserted. The chest, abdomen and both lower extremities were prepped and draped using ChloraPrep. Ioban was used to cover the skin. The patient received 2 g of cefazolin intravenously. No plan to harvest the radial artery as the patient's modified Geremias's test is very positive on the left side. Transesophageal echocardiogram confirmed the preoperative finding of [id number] left ventricular dysfunction with inferolateral hypokinesia and no significant valvular abnormalities. Midline sternotomy was performed and the bone was reasonably well perfused. No bone wax was used. The left hemisternum was elevated. The left internal mammary artery was harvested in a somewhat skeletonized fashion. The left pleura was intentionally opened in this process and was drained with a 19-Syrian Finn drain. There was a breach in the right pleura that was also drained with another 19-Syrian Finn drain. The patient was given 5000 units of heparin and the mammary artery was clipped distally and transected, had good pulsatile flow in it and was around 1.7 mm in diameter. In the same setting, the left greater saphenous vein was harvested endoscopically from groin to above ankle level. The leg incisions were closed over a drain. The vein was prepared by tying up all its branches. The vein was of reasonable quality, mildly thickened around 4 mm in diameter. Ankeney retractor was used. Mediastinal fat was transected between 2 ties and epiaortic scanning revealed no protruding atheroma in the ascending aorta. Pericardium was opened in an inverted T-fashion and a pericardial cradle was created. FINDINGS: Included a normal soft aorta and a normal size heart. However, with visible and palpable diffuse calcific coronary artery disease. There was some lateral wall changes indicating an old myocardial infarction. After systemic heparinization after placement of respective pledgeted pursestring, aortic cannulation and distal ascending aorta with a 21-Syrian soft flow cannula and venous cannulation via the right atrial appendage with a 3-stage 29-Syrian cannula was performed. Antegrade as well as retrograde cardioplegia catheters were placed. Cardiopulmonary bypass was initiated and the patient's temperature was allowed to drift down to 34 degrees Celsius. With the heart empty and beating, we looked at the target and we found a target at the mid LAD, mid PDA as the proximal PDA was calcified and in the mid obtuse marginal artery,superior branching. Aorta was clamped and during aortic clamping, myocardial protection was achieved with initial dose of 900 mL of antegrade cold blood cardioplegia with adequate arrest at 200 mL followed by 400 mL of retrograde cold blood cardioplegia. All subsequent doses were given retrograde at 15 minutes interval. The last dose was 1.5 L of warm blood as were reconstructing the proximal anastomosis. We started by excluding the left atrial appendage by deploying a 35 mm AtriClip at its base. Subsequently, the first distal anastomosis was between a segment of vein of reasonable quality and thickened and the 1.5 mm obtuse marginal artery in the mid ventricular aspect using Prolene 7-0 in continuous fashion. The 2nd distal anastomosis was between another segment of vein and the mid aspect of the posterior descending artery, which was also around 1.5 mm in diameter using Prolene 7-0 in continuous fashion. The third and last distal anastomosis were between the pedicled left internal mammary artery that passed in a groove in the left pleuropericardial fat and anastomosed to the mid to distal left anterior descending artery, which was around 1.7 mm in diameter using Prolene 7-0 in continuous fashion. I used a 1 mm shunt in every anastomosis and that was removed before completing each anastomosis respectively. Satisfied with the distal anastomosis, rewarming was started as we punched out 2 buttons of 4 mm each of the ascending aorta and performed the 2 proximal anastomoses of the 2 vein graft using running Prolene 6-0. The patient was given lidocaine and magnesium. He had received again a warm blood retrograde as reconstructing the proximal anastomosis and the heart was already beating. The patient was placed in Trendelenburg position with the vent on maximum at the level of the aortic root. The aorta was unclamped. The patient showed immediately is normal sinus rhythm. After around 10 to 15 minutes of reperfusion and after checking all anastomosis for hemostasis and a good signal with the Medi-Stim system, all free graft were able to wean off cardiac bypass without the need of any inotropic or vasopressor support. HAZEL showed mildly improved left ventricular function and no valvular abnormality. Cardiac index of 2.6 and PA pressure was 25/12. With that, all pump suckers were stopped, then test dose followed by full dose protamine were given. Two monopolar atrial pacing wires were affixed to the respective purse string of the right atrium. No ventricular pacing wire was placed. Two 19-Syrian Finn drain were left substernally. Pericardial fat was approximated over the aorta and the heart. After ensuring adequate hemostasis and hemodynamic, and after correct sponge, instrument, and needle count, the sternum was closed using 5 [id number] pioneer cable after interposing fibular between the sternal edges. Thorough irrigation with cefazolin followed. The rest of the closure proceeded in layers. Skin glue was applied. The patient did not receive any blood bank product, but received 480 mL of Cell Saver blood. He was transferred to the ICU in stable condition on no drips with good hemodynamics and normal EKG. The Medi-Stim system was used to measure the flow in the graft before closing. A 40 mm probe was selected and the flow into the vein graft to the posterior descending artery was 44 mL/minute, pulsatility index of 2.9, diastolic filling of 67% showing excellent functioning graft. The flow into the vein to the obtuse marginal artery was 31 mL/minute, pulsatility index of 2.8, diastolic filling of 71% showing excellent functioning graft. The signal in the left internal mammary artery to the left internal descending artery was excellent. However, we were not able to capture a recording for that. MMODL / IJN: [id number] / NANCI
[2022-01-23 00:15] LABS: Glucose,Whole Blood 144 mg/dL (70-110)
[2022-01-23] MEDS: KETOROLAC 15 MG/ML 1 ML VIAL IVP SCH ×5 (00:23→23:42)
[2022-01-23] MEDS ORDERED: HYDROcodone/APAP 5-325MG 1 EACH TAB PO PRN (00:35)
[2022-01-23 01:12] LABS: Glucose,Whole Blood 142 mg/dL (70-110)
[2022-01-23 02:16] LABS: Glucose,Whole Blood 133 mg/dL (70-110)
[2022-01-23 03:09] LABS: Glucose,Whole Blood 127 mg/dL (70-110)
[2022-01-23 04:18] LABS: Glucose,Whole Blood 128 mg/dL (70-110)
[2022-01-23] MEDS: HYDROcodone/APAP 5-325MG 1 EACH TAB PO PRN ×2 (04:44→16:36)
[2022-01-23 05:14] LABS: Glucose,Whole Blood 140 mg/dL (70-110)
[2022-01-23 05:30] LABS: Basophils % (A) 0 %; Eosinophils % (A) 0 %; HCT 33.1 % (39.0-53.0); HGB 10.7 gm/dL (13.0-17.5); Lymphocytes % (A) 10 %; MCH 31.8 pg (25.0-35.0); MCHC 32.3 g/dL (31.0-37.0); MCV 98.4 fL (80.0-100.0); Mean Platelet Volume 8.3; Monocytes # (A) 0.5 k/uL (0-1.0); Monocytes % (A) 5 %; Neutrophils # (A) 8.1 k/uL (1.3-7.7); Neutrophils % (A) 84 %; Platelet Count 215 k/uL (150-450); RBC 3.37 m/uL (4.30-5.90); RDW 12.2 % (11.5-15.5); WBC 9.7 k/uL (3.8-10.6)
[2022-01-23 05:41] LABS: Ionized Calcium 4.8 mg/dL (4.5-5.3)
[2022-01-23 05:52] LABS: ALT 21 U/L (4-49); AST 49 U/L (17-59); African American GFR (CKD) >90 (>60 ml/min/1.73 sqM); Albumin 3.5 g/dL (3.5-5.0); Alkaline Phosphatase 45 U/L (38-126); Anion Gap 11 mmol/L; Blood Urea Nitrogen 24 mg/dL (9-20); Calcium 8.4 mg/dL (8.4-10.2); Carbon Dioxide 22 mmol/L (22-30); Chloride 102 mmol/L (98-107); Glucose 124 mg/dL (74-99); Magnesium 2.2 mg/dL (1.6-2.3); Non-African American GFR(CKD) 85 (>60 ml/min/1.73 sqM); Potassium 4.4 mmol/L (3.5-5.1); Sodium 135 mmol/L (137-145); Total Bilirubin 0.7 mg/dL (0.2-1.3); Total Protein 5.5 g/dL (6.3-8.2)
[2022-01-23 06:48] LABS: Glucose,Whole Blood 145 mg/dL (70-110)
--- NOTE | 2022-01-23 07:32 | P.PN ---
Subjective Progress Note Date: 01/22/22 Principal diagnosis: Chest pain Patient is currently in bypass surgery. Objective - Vital Signs Vital signs: Vital Signs Temp 97.7 F 01/22/22 14:10 Pulse 68 01/22/22 18:10 Resp 16 01/22/22 18:10 BP 113/77 01/22/22 06:19 Pulse Ox 100 01/22/22 18:10 FiO2 45 01/22/22 16:39 Intake & Output 01/21/22 01/22/22 01/22/22 18:59 06:59 18:59 Intake Total 760 320 3350.776 Output Total 550 2595 Balance -70 100 -1432.224 Weight 91.2 kg Intake: IV 100 1118 ACETAMINOPHEN IV (For NPO 100 ) 1,000 mg In Empty Bag 1 bag @ 400 mls/hr IVPB Q6H PANKAJ Rx#:[id number] Albumin Human 25% 50 ml 500 In Empty Bag 1 bag @ 100 mls/hr IVPB ONCE ONE Rx#: [id number] CO/CI 120 Pressure Bags 45 Sodium Chloride 0.9% 1, 250 000 ml @ 50 mls/hr IV . Q20H PANKAJ Rx#:[id number] ceFAZolin 2 gm In Sodium 50 Chloride 0.9% 50 ml @ 100 mls/hr IVPB ONCE ONE Rx# :[id number] Intake, IV Titration 44.776 Amount Dexmedetomidine/0.9% NaCl 16.872 (Pmx) 400 mcg In Empty Bag 1 bag @ 0.2 MCG/KG/HR 4.56 mls/hr IV .[id number] PANKAJ Rx#:[id number] Insulin Regular 100 unit 0.909 In Sodium Chloride 0.9% 100 ml @ Per Protocol IV .Q0M PANKAJ Rx#:[id number] propofoL 1,000 mg In 26.995 Empty Bag 1 bag @ Titrate IV .Q0M PANKAJ Rx#: [id number] Oral 480 Output: Chest Tube Drainage 340 Left Pleural 30 Mediastinal 160 Right Pleural 150 Urine 550 755 Estimated Blood Loss 1500 Other: Voiding Method Indwelling Catheter ABP, PAP, CO, CI - Last Documented Arterial Blood Pressure 91/50 Pulmonary Artery Pressure 29/14 Cardiac Output 4.2 Cardiac Index 2 - Exam Constitutional: No acute distress, conversant, pleasant Eyes:Anicteric sclerae, moist conjunctiva, no lid-lag, PERRLA, ENMT: Oropharynx clear, no erythema, exudates Neck: Supple, FROM, no masses, or JVD, No carotid bruits, No thyromegaly Lungs: Clear to auscultation, Clear to percussion, Normal respiratory effort, no accessory muscle use Cardiovascular: Heart regular in rate and rhythm, No murmurs, gallops, or rubs, No peripheral edema Abdominal: Soft, Nontender, no guarding, rebound or rigidity, Normoactive bowel sounds, No hepatomegaly, No splenomegaly, No palpable mass Skin: Normal temperature, tone, texture, turgor, no induration, No subcutaneous nodules, No rash, lesions, No ulcers Extremities: No digital cyanosis, No clubbing, Pedal pulses intact and symmetrical, Radial pulses intact and symmetrical, No calf tenderness Psychiatric: Alert and oriented to person, place and time, appropriate affect, intact judgement Neuro: Muscles Strength 5/5 in all 4 extremities, Sensation to light touch grossly present throughout, Cranial nerves II-XII grossly intact, no focal sensory deficits - Labs CBC & Chem 7: 01/23/22 05:08 01/23/22 05:08 Labs: Abnormal Lab Results - Last 24 Hours (Table) 01/21/22 01/22/22 01/22/22 Range/Units 05:18 06:21 09:02 WBC (3.8-10.6) k/uL RBC (4.30-5.90) m/uL Hgb (13.0-17.5) gm/dL Hct (39.0-53.0) % Neutrophils # (1.3-7.7) k/uL ABG pO2 206 H (83-108) mmHg ABG HCO3 28 H (21-25) mmol/L ABG Total CO2 29 H (19-24) mmol/L ABG O2 Saturation 99.8 H (94-97) % ABG Hematocrit (34.0-46.0) % ABG Sodium (135-146) mmol/L ABG Potassium (3.4-4.5) mmol/L ABG Ionized Calcium (4.5-5.3) mg/dL ABG Glucose 108 H (75-99) mg/dL Hemoglobin (13.0-17.5) gm/dL Sodium (137-145) mmol/L Glucose (74-99) mg/dL POC Glucose (mg/dL) 111 H (70-110) mg/dL Magnesium (1.6-2.3) mg/dL AST (17-59) U/L Total Protein (6.3-8.2) g/dL Albumin (3.5-5.0) g/dL Arterial Blood Potassium (3.4-4.5) mmol/L Arterial Blood Glucose 108 H (75-99) mg/dL Crossmatch See Detail 01/22/22 01/22/22 01/22/22 Range/Units 10:28 11:59 12:30 WBC (3.8-10.6) k/uL RBC (4.30-5.90) m/uL Hgb (13.0-17.5) gm/dL Hct (39.0-53.0) % Neutrophils # (1.3-7.7) k/uL ABG pO2 188 H 295 H 299 H (83-108) mmHg ABG HCO3 26 H 26 H 26 H (21-25) mmol/L ABG Total CO2 28 H 27 H 27 H (19-24) mmol/L ABG O2 Saturation 99.2 H 99.8 H 99.6 H (94-97) % ABG Hematocrit 30 L 31 L (34.0-46.0) % ABG Sodium 133 L 134 L (135-146) mmol/L ABG Potassium 3.3 L (3.4-4.5) mmol/L ABG Ionized Calcium 4.2 L 4.3 L (4.5-5.3) mg/dL ABG Glucose 121 H 125 H 131 H (75-99) mg/dL Hemoglobin 12.5 L 9.8 L 10.1 L (13.0-17.5) gm/dL Sodium (137-145) mmol/L Glucose (74-99) mg/dL POC Glucose (mg/dL) (70-110) mg/dL Magnesium (1.6-2.3) mg/dL AST (17-59) U/L Total Protein (6.3-8.2) g/dL Albumin (3.5-5.0) g/dL Arterial Blood Potassium 3.3 L (3.4-4.5) mmol/L Arterial Blood Glucose 121 H 125 H 131 H (75-99) mg/dL Crossmatch 01/22/22 01/22/22 01/22/22 Range/Units 13:08 14:07 14:09 WBC 11.7 H (3.8-10.6) k/uL RBC 3.65 L (4.30-5.90) m/uL Hgb 11.9 L (13.0-17.5) gm/dL Hct 35.3 L (39.0-53.0) % Neutrophils # 9.6 H (1.3-7.7) k/uL ABG pO2 (83-108) mmHg ABG HCO3 26 H (21-25) mmol/L ABG Total CO2 27 H (19-24) mmol/L ABG O2 Saturation (94-97) % ABG Hematocrit 31 L (34.0-46.0) % ABG Sodium 134 L (135-146) mmol/L ABG Potassium (3.4-4.5) mmol/L ABG Ionized Calcium (4.5-5.3) mg/dL ABG Glucose 142 H (75-99) mg/dL Hemoglobin 10.1 L (13.0-17.5) gm/dL Sodium (137-145) mmol/L Glucose (74-99) mg/dL POC Glucose (mg/dL) 132 H (70-110) mg/dL Magnesium (1.6-2.3) mg/dL AST (17-59) U/L Total Protein (6.3-8.2) g/dL Albumin (3.5-5.0) g/dL Arterial Blood Potassium (3.4-4.5) mmol/L Arterial Blood Glucose 142 H (75-99) mg/dL Crossmatch 01/22/22 01/22/22 01/22/22 Range/Units 14:09 14:38 16:07 WBC (3.8-10.6) k/uL RBC (4.30-5.90) m/uL Hgb (13.0-17.5) gm/dL Hct (39.0-53.0) % Neutrophils # (1.3-7.7) k/uL ABG pO2 196 H (83-108) mmHg ABG HCO3 27 H (21-25) mmol/L ABG Total CO2 28 H (19-24) mmol/L ABG O2 Saturation 100.0 H (94-97) % ABG Hematocrit (34.0-46.0) % ABG Sodium (135-146) mmol/L ABG Potassium (3.4-4.5) mmol/L ABG Ionized Calcium (4.5-5.3) mg/dL ABG Glucose (75-99) mg/dL Hemoglobin (13.0-17.5) gm/dL Sodium 134 L (137-145) mmol/L Glucose 122 H (74-99) mg/dL POC Glucose (mg/dL) 133 H (70-110) mg/dL Magnesium 2.5 H (1.6-2.3) mg/dL AST 75 H (17-59) U/L Total Protein 5.0 L (6.3-8.2) g/dL Albumin 2.8 L (3.5-5.0) g/dL Arterial Blood Potassium (3.4-4.5) mmol/L Arterial Blood Glucose (75-99) mg/dL Crossmatch 01/22/22 01/22/22 Range/Units 16:36 18:13 WBC 12.1 H (3.8-10.6) k/uL RBC 3.77 L (4.30-5.90) m/uL Hgb 12.6 L (13.0-17.5) gm/dL Hct 37.2 L (39.0-53.0) % Neutrophils # 9.6 H (1.3-7.7) k/uL ABG pO2 (83-108) mmHg ABG HCO3 (21-25) mmol/L ABG Total CO2 (19-24) mmol/L ABG O2 Saturation (94-97) % ABG Hematocrit (34.0-46.0) % ABG Sodium (135-146) mmol/L ABG Potassium (3.4-4.5) mmol/L ABG Ionized Calcium (4.5-5.3) mg/dL ABG Glucose (75-99) mg/dL Hemoglobin (13.0-17.5) gm/dL Sodium (137-145) mmol/L Glucose (74-99) mg/dL POC Glucose (mg/dL) 137 H (70-110) mg/dL Magnesium (1.6-2.3) mg/dL AST (17-59) U/L Total Protein (6.3-8.2) g/dL Albumin (3.5-5.0) g/dL Arterial Blood Potassium (3.4-4.5) mmol/L Arterial Blood Glucose (75-99) mg/dL Crossmatch Assessment and Plan Plan: Chest pain Non-ST elevation myocardial infarction Continue aspirin and heparin drip Continue statin Telemetry Cardiology following, s/p heart cath which showed 3 vessels disease, was seen by CT surgery for bypass. Tentatively scheduled for Thursday. Chronic systolic CHF Lasix IV. Continue atenolol. Per cardio. Hypothyroidism TSH within therapeutic range Continue levothyroxine. Hyperlipidemia Resume meds
[2022-01-23 08:13] LABS: Glucose,Whole Blood 196 mg/dL (70-110)
[2022-01-23] MEDS: THIAMINE 100 MG TAB PO SCH ×2 (08:13→18:50)
[2022-01-23] MEDS: MULTIVITAMINS, THERA 1 EACH TAB PO SCH (08:13)
[2022-01-23] MEDS: CLOPIDOGREL 75 MG TAB PO SCH (08:13)
[2022-01-23] MEDS: ASPIRIN 325 MG TAB PO SCH (08:13)
[2022-01-23] MEDS: LEVOTHYROXINE 137 MCG TAB PO SCH (08:13)
[2022-01-23] MEDS: METOPROLOL TARTRATE 12.5 MG TAB PO SCH ×2 (08:13→20:15)
[2022-01-23] MEDS: ATORVASTATIN 40 MG TAB PO SCH (08:13)
[2022-01-23] MEDS: ENOXAPARIN 40 MG/0.4 ML SYRINGE SQ SCH (08:14)
[2022-01-23] MEDS ORDERED: FUROSEMIDE 10 MG/ML 2 ML VIAL IV STA (08:34)
[2022-01-23] MEDS ORDERED: bisacodyL 10 MG SUPP RECTAL PRN (09:00)
[2022-01-23] MEDS ORDERED: MAGNESIUM HYDROXIDE 2,400 MG/10 ML CUP PO PRN (09:00)
[2022-01-23] MEDS ORDERED: PANTOPRAZOLE 40 MG/10 ML VIAL IVP SCH (09:00)
--- NOTE | 2022-01-23 09:03 | XR ---
EXAMINATION TYPE: XR chest 1V portable DATE OF EXAM: 01/23/2022 COMPARISON: Chest x-ray 01/22/2022 HISTORY: Postop cardiac surgery, extubated TECHNIQUE: Single frontal view of the chest is obtained. FINDINGS: Lung volumes are low. Endotracheal tube and NG tube have been removed. Central venous cath eter remains in place. Patient is post median sternotomy and left atrial appendage clip placement. Ce ntral vascularity and interstitium appear prominently possibly due to technique. There is no evident pneumothorax. Patchy basilar density is noted. Cardiac mediastinal silhouette appears prominently pos sibly due to expiratory technique. IMPRESSION: Interval extubation. Expiratory rotated exam. Difficult to exclude interstitial edema, b asilar atelectasis, small effusion
[2022-01-23] MEDS: IPRATROPIUM-ALBUTEROL 3 ML NEB INHALATION SCH ×4 (09:07→20:50)
--- NOTE | 2022-01-23 09:20 | P.PN ---
Subjective Progress Note Date: 01/23/22 Principal diagnosis: Severe triple-vessel coronary artery disease, non-ST elevated myocardial infarction this admission, and mild to moderate left ventricular dysfunction. Past medical history significant for coronary artery disease with remote history of PCI with stent placement to his left anterior descending coronary artery and circumflex coronary artery, hyperlipidemia, thyroid disorder, remote history of nicotine dependence, daily EtOH drinks 1 beer daily and a family history of early onset coronary artery disease with his dad passing away from a myocardial infarction at age 55. POD #1 triple-vessel coronary artery bypass grafting using the left internal mammary artery to left anterior setting coronary artery, a reverse greater saphenous vein graft from the aorta to the posterior descending coronary artery, a reverse greater saphenous vein graft from the aorta to the obtuse marginal coronary artery. Exclusion of the left atrial appendage using a 35 mm Atriclip, endoscopic harvesting of the left greater saphenous vein, intraoperative graft flow measurement using the [employer] system and intraoperative transesophageal echocardiogram and epi-aortic scanning. Postoperative acute blood loss anemia, expected given hemodilution and cardiopulmonary bypass. The patient was seen and examined in follow-up today 01/23/2022 at his bedside in the intensive care unit. He was successfully extubated at 10:15 PM last evening and is currently on 3 L nasal cannula with oxygen saturations 97%. He is achieving 1000 mL on his incentive spirometry with much encouragement. Currently sitting up to the bedside chair, is awake, alert, oriented 3 and is in no acute apparent distress. Denies any complaints of shortness of breath or pain at this time while sitting. The patient does report although with movement he does have some surgical type pain to his chest tube insertion sites. Bedside telemetry is showing normal sinus rhythm heart rate 87 bpm. Right IJ cordis and Appleton-Joaquina catheter remain in place with current hemodynamic showing a cardiac output of 5.0, cardiac index 2.4, PA pressures 29/9 and CVP 5 mmHg. He remains hemodynamically stable and is currently on no inotropic pressor support. Mediastinal, right and left pleural Finn drains remain in place to low continuous wall suction -20 cm H2O. No air leak is present. Left pleural chest tube drained 30 mL output in the last 8 hours and 210 mL output since surgery, mediastinal chest tubes drained 250 mL of thin serosanguineous drainage since surgery, right chest tube drained 50 mL output in the last 8 hours and 370 mL output since surgery. Laboratory results this morning show a WBC count of 9.7, hemoglobin 10.7, hematocrit 33.1, platelets 215, sodium 135, potassium 4.4, chloride 102, CO2 22, BUN 24, creatinine 0.80, glucose 124, calcium 8.4, ionized calcium 4.8, magnesium 2.2, AST 49 and ALT 21. Objective - Vital Signs Vital signs: Vital Signs Temp 99.3 F 01/23/22 04:00 Pulse 80 01/23/22 06:00 Resp 28 H 01/23/22 06:00 BP 102/67 01/23/22 06:00 Pulse Ox 96 01/23/22 06:00 FiO2 45 01/22/22 21:25 Intake & Output 01/22/22 01/23/22 01/23/22 18:59 06:59 18:59 Intake Total 8414.816 3101.031 63.463 Output Total 2595 837 110 Balance -1432.224 465.031 -46.537 Weight 95 kg Intake: IV 1118 1284.5 60.5 ACETAMINOPHEN IV (For NPO 100 100 ) 1,000 mg In Empty Bag 1 bag @ 400 mls/hr IVPB Q6H [facility] Rx#:[id number] Albumin Human 25% 50 ml 500 In Empty Bag 1 bag @ 100 mls/hr IVPB ONCE ONE Rx#: [id number] CO/CI 120 410 Nitroglycerin-D5w Pmx 50 16.5 1.5 mg In Dextrose/Water 1 250ml.bag @ 5 MCG/MIN 1.5 mls/hr IV .Q24H [facility] Rx#: [id number] Pressure Bags 45 108 9 Sodium Chloride 0.9% 1, 250 600 50 000 ml @ 50 mls/hr IV . Q20H [facility] Rx#:[id number] ceFAZolin 2 gm In Sodium 50 50 Chloride 0.9% 50 ml @ 100 mls/hr IVPB ONCE ONE Rx# :[id number] Intake, IV Titration 44.776 17.531 2.963 Amount Dexmedetomidine/0.9% NaCl 16.872 4.484 (Pmx) 400 mcg In Empty Bag 1 bag @ 0.2 MCG/KG/HR 4.56 mls/hr IV .[id number] [facility] Rx#:[id number] Insulin Regular 100 unit 0.909 13.047 2.963 In Sodium Chloride 0.9% 100 ml @ Per Protocol IV .Q0M [facility] Rx#:[id number] propofoL 1,000 mg In 26.995 Empty Bag 1 bag @ Titrate IV .Q0M [facility] Rx#: [id number] Output: Chest Tube Drainage 340 450 80 Left Pleural 30 150 30 Mediastinal 160 130 0 Right Pleural 150 170 50 Drainage 15 Left Calf 15 Urine 755 372 30 Estimated Blood Loss 1500 Other: Voiding Method Indwelling Catheter Indwelling Catheter ABP, PAP, CO, CI - Last Documented Arterial Blood Pressure 113/56 Pulmonary Artery Pressure 44/17 Cardiac Output 4.9 Cardiac Index 2.3 - Exam CONSTITUTIONAL: Sitting up to the bedside chair in the intensive care unit, appears comfortable, cooperative, no apparent acute distress. HEENT: Neck is supple, no JVD, no lymphadenopathy. Right IJ Cordis and Appleton- Joaquina catheter in place and functioning. RESPIRATORY: Lungs sounds essentially clear throughout, diminished to his bilateral bases. Respirations are symmetrical and nonlabored. Currently on 3 L nasal cannula with oxygen saturations 97%. Able to achieve 1000 mL on his incentive spirometry. Strong cough. CARDIOVASCULAR: Regular rhythm and rate. S1 and S2 present, negative for S3, gallop or murmur. Sternum is stable. Palpable peripheral pulses bilaterally, trace edema to his bilateral lower extremities. No calf pain or tenderness noted. Heart hugger in place with patient demonstrating appropriate use. Knee- high MARICHUY hose and sequential compression devices in place to his bilateral lower extremities. Bedside telemetry showing normal sinus rhythm heart rate 87 BPM. GASTROINTESTINAL: Abdomen soft, nontender, nondistended. Hypoactive bowel sounds present 4 quadrants. Tolerating diet. Denies passing flatus. No guarding or rigidity. GENITOURINARY: Coelho present draining clear, yellow urine. Urine output 280 mL in the last 8 hours INTEGUMENTARY: Skin is warm and dry with no evidence of clubbing or cyanosis. Midline sternal incision clean dry and well approximated, covered with dry intact dressing. Left lower extremity EVH site well approximated without redness or drainage. NEUROLOGIC: Cranial nerves II through XII intact. No focal deficits. MUSKULOSKELETAL: Able to move all extremities, strength equal bilaterally, gen eralized weakness. PSYCHIATRIC: Alert and oriented to person place and time, appropriate affect, intact judgment and insight. INVASIVE LINES AND TUBES: Mediastinal/left/right pleural Finn chest tubes present and connected to low continuous wall suction, no air leaks present. Mediastinal tube with 0 mL of thin serosanguineous drainage overnight, 250 mL output since surgery. Left pleural chest tube with 30 mL of thin serosanguineous drainage overnight, 210 mL output since surgery. Right pleural chest tube with 50 mL of thin serosanguineous drainage overnight, 370 mL output since surgery. Atrial and ventricular epicardial pacemaker wires present, connected to generator, VVI backup rate 50 bpm. Right internal jugular Appleton/Cordis, right radial arterial line present. Last CO 5.0, CI 2.4, PA 29/9 and CVP 5 mmHg. Left lower extremity FAWAD drain in place with scant thin serosanguineous drainage with 15 mL output since surgery. - Allied health notes Allied health notes reviewed: nursing - Labs CBC & Chem 7: 01/23/22 05:08 01/23/22 05:08 Labs: Abnormal Lab Results - Last 24 Hours (Table) 01/21/22 01/22/22 01/22/22 Range/Units 05:18 09:02 10:28 WBC (3.8-10.6) k/uL RBC (4.30-5.90) m/uL Hgb (13.0-17.5) gm/dL Hct (39.0-53.0) % Neutrophils # (1.3-7.7) k/uL Lymphocytes # (1.0-4.8) k/uL ABG pO2 206 H 188 H (83-108) mmHg ABG HCO3 28 H 26 H (21-25) mmol/L ABG Total CO2 29 H 28 H (19-24) mmol/L ABG O2 Saturation 99.8 H 99.2 H (94-97) % ABG Hematocrit (34.0-46.0) % ABG Sodium (135-146) mmol/L ABG Potassium 3.3 L (3.4-4.5) mmol/L ABG Ionized Calcium (4.5-5.3) mg/dL ABG Glucose 108 H 121 H (75-99) mg/dL Hemoglobin 12.5 L (13.0-17.5) gm/dL Sodium (137-145) mmol/L BUN (9-20) mg/dL Glucose (74-99) mg/dL POC Glucose (mg/dL) (70-110) mg/dL Magnesium (1.6-2.3) mg/dL AST (17-59) U/L Total Protein (6.3-8.2) g/dL Albumin (3.5-5.0) g/dL Arterial Blood Potassium 3.3 L (3.4-4.5) mmol/L Arterial Blood Glucose 108 H 121 H (75-99) mg/dL Crossmatch See Detail 01/22/22 01/22/22 01/22/22 Range/Units 11:59 12:30 13:08 WBC (3.8-10.6) k/uL RBC (4.30-5.90) m/uL Hgb (13.0-17.5) gm/dL Hct (39.0-53.0) % Neutrophils # (1.3-7.7) k/uL Lymphocytes # (1.0-4.8) k/uL ABG pO2 295 H 299 H (83-108) mmHg ABG HCO3 26 H 26 H 26 H (21-25) mmol/L ABG Total CO2 27 H 27 H 27 H (19-24) mmol/L ABG O2 Saturation 99.8 H 99.6 H (94-97) % ABG Hematocrit 30 L 31 L 31 L (34.0-46.0) % ABG Sodium 133 L 134 L 134 L (135-146) mmol/L ABG Potassium (3.4-4.5) mmol/L ABG Ionized Calcium 4.2 L 4.3 L (4.5-5.3) mg/dL ABG Glucose 125 H 131 H 142 H (75-99) mg/dL Hemoglobin 9.8 L 10.1 L 10.1 L (13.0-17.5) gm/dL Sodium (137-145) mmol/L BUN (9-20) mg/dL Glucose (74-99) mg/dL POC Glucose (mg/dL) (70-110) mg/dL Magnesium (1.6-2.3) mg/dL AST (17-59) U/L Total Protein (6.3-8.2) g/dL Albumin (3.5-5.0) g/dL Arterial Blood Potassium (3.4-4.5) mmol/L Arterial Blood Glucose 125 H 131 H 142 H (75-99) mg/dL Crossmatch 01/22/22 01/22/22 01/22/22 Range/Units 14:07 14:09 14:09 WBC 11.7 H (3.8-10.6) k/uL RBC 3.65 L (4.30-5.90) m/uL Hgb 11.9 L (13.0-17.5) gm/dL Hct 35.3 L (39.0-53.0) % Neutrophils # 9.6 H (1.3-7.7) k/uL Lymphocytes # (1.0-4.8) k/uL ABG pO2 (83-108) mmHg ABG HCO3 (21-25) mmol/L ABG Total CO2 (19-24) mmol/L ABG O2 Saturation (94-97) % ABG Hematocrit (34.0-46.0) % ABG Sodium (135-146) mmol/L ABG Potassium (3.4-4.5) mmol/L ABG Ionized Calcium (4.5-5.3) mg/dL ABG Glucose (75-99) mg/dL Hemoglobin (13.0-17.5) gm/dL Sodium 134 L (137-145) mmol/L BUN (9-20) mg/dL Glucose 122 H (74-99) mg/dL POC Glucose (mg/dL) 132 H (70-110) mg/dL Magnesium 2.5 H (1.6-2.3) mg/dL AST 75 H (17-59) U/L Total Protein 5.0 L (6.3-8.2) g/dL Albumin 2.8 L (3.5-5.0) g/dL Arterial Blood Potassium (3.4-4.5) mmol/L Arterial Blood Glucose (75-99) mg/dL Crossmatch 01/22/22 01/22/22 01/22/22 Range/Units 14:38 16:07 16:36 WBC 12.1 H (3.8-10.6) k/uL RBC 3.77 L (4.30-5.90) m/uL Hgb 12.6 L (13.0-17.5) gm/dL Hct 37.2 L (39.0-53.0) % Neutrophils # 9.6 H (1.3-7.7) k/uL Lymphocytes # (1.0-4.8) k/uL ABG pO2 196 H (83-108) mmHg ABG HCO3 27 H (21-25) mmol/L ABG Total CO2 28 H (19-24) mmol/L ABG O2 Saturation 100.0 H (94-97) % ABG Hematocrit (34.0-46.0) % ABG Sodium (135-146) mmol/L ABG Potassium (3.4-4.5) mmol/L ABG Ionized Calcium (4.5-5.3) mg/dL ABG Glucose (75-99) mg/dL Hemoglobin (13.0-17.5) gm/dL Sodium (137-145) mmol/L BUN (9-20) mg/dL Glucose (74-99) mg/dL POC Glucose (mg/dL) 133 H (70-110) mg/dL Magnesium (1.6-2.3) mg/dL AST (17-59) U/L Total Protein (6.3-8.2) g/dL Albumin (3.5-5.0) g/dL Arterial Blood Potassium (3.4-4.5) mmol/L Arterial Blood Glucose (75-99) mg/dL Crossmatch 01/22/22 01/22/22 01/22/22 Range/Units 18:13 18:56 18:57 WBC (3.8-10.6) k/uL RBC 3.21 L (4.30-5.90) m/uL Hgb 10.4 L (13.0-17.5) gm/dL Hct 31.4 L (39.0-53.0) % Neutrophils # 8.4 H (1.3-7.7) k/uL Lymphocytes # 0.6 L (1.0-4.8) k/uL ABG pO2 (83-108) mmHg ABG HCO3 (21-25) mmol/L ABG Total CO2 (19-24) mmol/L ABG O2 Saturation (94-97) % ABG Hematocrit (34.0-46.0) % ABG Sodium (135-146) mmol/L ABG Potassium (3.4-4.5) mmol/L ABG Ionized Calcium (4.5-5.3) mg/dL ABG Glucose (75-99) mg/dL Hemoglobin (13.0-17.5) gm/dL Sodium (137-145) mmol/L BUN (9-20) mg/dL Glucose (74-99) mg/dL POC Glucose (mg/dL) 137 H 147 H (70-110) mg/dL Magnesium (1.6-2.3) mg/dL AST (17-59) U/L Total Protein (6.3-8.2) g/dL Albumin (3.5-5.0) g/dL Arterial Blood Potassium (3.4-4.5) mmol/L Arterial Blood Glucose (75-99) mg/dL Crossmatch 01/22/22 01/22/22 01/22/22 Range/Units 20:10 21:03 21:49 WBC (3.8-10.6) k/uL RBC (4.30-5.90) m/uL Hgb (13.0-17.5) gm/dL Hct (39.0-53.0) % Neutrophils # (1.3-7.7) k/uL Lymphocytes # (1.0-4.8) k/uL ABG pO2 (83-108) mmHg ABG HCO3 (21-25) mmol/L ABG Total CO2 26 H (19-24) mmol/L ABG O2 Saturation 98.7 H (94-97) % ABG Hematocrit (34.0-46.0) % ABG Sodium (135-146) mmol/L ABG Potassium (3.4-4.5) mmol/L ABG Ionized Calcium (4.5-5.3) mg/dL ABG Glucose (75-99) mg/dL Hemoglobin (13.0-17.5) gm/dL Sodium (137-145) mmol/L BUN (9-20) mg/dL Glucose (74-99) mg/dL POC Glucose (mg/dL) 138 H 139 H (70-110) mg/dL Magnesium (1.6-2.3) mg/dL AST (17-59) U/L Total Protein (6.3-8.2) g/dL Albumin (3.5-5.0) g/dL Arterial Blood Potassium (3.4-4.5) mmol/L Arterial Blood Glucose (75-99) mg/dL Crossmatch 01/22/22 01/22/22 01/23/22 Range/Units 22:06 23:05 00:09 WBC (3.8-10.6) k/uL RBC (4.30-5.90) m/uL Hgb (13.0-17.5) gm/dL Hct (39.0-53.0) % Neutrophils # (1.3-7.7) k/uL Lymphocytes # (1.0-4.8) k/uL ABG pO2 (83-108) mmHg ABG HCO3 (21-25) mmol/L ABG Total CO2 (19-24) mmol/L ABG O2 Saturation (94-97) % ABG Hematocrit (34.0-46.0) % ABG Sodium (135-146) mmol/L ABG Potassium (3.4-4.5) mmol/L ABG Ionized Calcium (4.5-5.3) mg/dL ABG Glucose (75-99) mg/dL Hemoglobin (13.0-17.5) gm/dL Sodium (137-145) mmol/L BUN (9-20) mg/dL Glucose (74-99) mg/dL POC Glucose (mg/dL) 142 H 140 H 144 H (70-110) mg/dL Magnesium (1.6-2.3) mg/dL AST (17-59) U/L Total Protein (6.3-8.2) g/dL Albumin (3.5-5.0) g/dL Arterial Blood Potassium (3.4-4.5) mmol/L Arterial Blood Glucose (75-99) mg/dL Crossmatch 01/23/22 01/23/22 01/23/22 Range/Units 01:10 02:14 03:08 WBC (3.8-10.6) k/uL RBC (4.30-5.90) m/uL Hgb (13.0-17.5) gm/dL Hct (39.0-53.0) % Neutrophils # (1.3-7.7) k/uL Lymphocytes # (1.0-4.8) k/uL ABG pO2 (83-108) mmHg ABG HCO3 (21-25) mmol/L ABG Total CO2 (19-24) mmol/L ABG O2 Saturation (94-97) % ABG Hematocrit (34.0-46.0) % ABG Sodium (135-146) mmol/L ABG Potassium (3.4-4.5) mmol/L ABG Ionized Calcium (4.5-5.3) mg/dL ABG Glucose (75-99) mg/dL Hemoglobin (13.0-17.5) gm/dL Sodium (137-145) mmol/L BUN (9-20) mg/dL Glucose (74-99) mg/dL POC Glucose (mg/dL) 142 H 133 H 127 H (70-110) mg/dL Magnesium (1.6-2.3) mg/dL AST (17-59) U/L Total Protein (6.3-8.2) g/dL Albumin (3.5-5.0) g/dL Arterial Blood Potassium (3.4-4.5) mmol/L Arterial Blood Glucose (75-99) mg/dL Crossmatch 01/23/22 01/23/22 01/23/22 Range/Units 04:16 05:08 05:08 WBC (3.8-10.6) k/uL RBC 3.37 L (4.30-5.90) m/uL Hgb 10.7 L (13.0-17.5) gm/dL Hct 33.1 L (39.0-53.0) % Neutrophils # 8.1 H (1.3-7.7) k/uL Lymphocytes # (1.0-4.8) k/uL ABG pO2 (83-108) mmHg ABG HCO3 (21-25) mmol/L ABG Total CO2 (19-24) mmol/L ABG O2 Saturation (94-97) % ABG Hematocrit (34.0-46.0) % ABG Sodium (135-146) mmol/L ABG Potassium (3.4-4.5) mmol/L ABG Ionized Calcium (4.5-5.3) mg/dL ABG Glucose (75-99) mg/dL Hemoglobin (13.0-17.5) gm/dL Sodium 135 L (137-145) mmol/L BUN 24 H (9-20) mg/dL Glucose 124 H (74-99) mg/dL POC Glucose (mg/dL) 128 H (70-110) mg/dL Magnesium (1.6-2.3) mg/dL AST (17-59) U/L Total Protein 5.5 L (6.3-8.2) g/dL Albumin (3.5-5.0) g/dL Arterial Blood Potassium (3.4-4.5) mmol/L Arterial Blood Glucose (75-99) mg/dL Crossmatch 01/23/22 01/23/22 01/23/22 Range/Units 05:12 06:47 08:10 WBC (3.8-10.6) k/uL RBC (4.30-5.90) m/uL Hgb (13.0-17.5) gm/dL Hct (39.0-53.0) % Neutrophils # (1.3-7.7) k/uL Lymphocytes # (1.0-4.8) k/uL ABG pO2 (83-108) mmHg ABG HCO3 (21-25) mmol/L ABG Total CO2 (19-24) mmol/L ABG O2 Saturation (94-97) % ABG Hematocrit (34.0-46.0) % ABG Sodium (135-146) mmol/L ABG Potassium (3.4-4.5) mmol/L ABG Ionized Calcium (4.5-5.3) mg/dL ABG Glucose (75-99) mg/dL Hemoglobin (13.0-17.5) gm/dL Sodium (137-145) mmol/L BUN (9-20) mg/dL Glucose (74-99) mg/dL POC Glucose (mg/dL) 140 H 145 H 196 H (70-110) mg/dL Magnesium (1.6-2.3) mg/dL AST (17-59) U/L Total Protein (6.3-8.2) g/dL Albumin (3.5-5.0) g/dL Arterial Blood Potassium (3.4-4.5) mmol/L Arterial Blood Glucose (75-99) mg/dL Crossmatch - Imaging and Cardiology Chest x-ray: report reviewed, image reviewed Assessment and Plan Assessment: 1. Multivessel coronary artery disease, status post three-vessel coronary artery bypass grafting surgery 2. Non-ST elevated myocardial infarction this admission 3. History of coronary artery disease with remote history of PCI to his LAD and circumflex coronary artery 4. 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 Ischemic cardiomyopathy with an ejection fraction of 40-45% 6. Hyperlipidemia 7. Thyroid disorder 8. Remote history of nicotine dependence 9. Daily EtOH use, drinks 1 beer daily 10. Family history of early onset coronary artery disease with his dad from a myocardial infarction at age 55 11. Postoperative acute blood loss anemia, expected given hemodilution and cardiopulmonary bypass Plan: 1. Continue to maximize medical therapy with aspirin, statin, Plavix, beta shantel. Will increase beta shantel therapy as tolerated. 2. Wean O2 as tolerated. Encourage incentive spirometry use 10 times every hour while awake. Bronchodilators per pulmonology/critical care medicine. 3. Increase activity, ambulate as tolerated. PT/OT/cardiac rehab consulted. 4. Will monitor daily labs and x-rays. Electrolyte replacement per protocol. 5. GI/DVT prophylaxis. 6. Insulin management per internal medicine, patient is a nondiabetic with a preoperative hemoglobin A1c of 5.7%. 7. Pain control with current medication regimen. Toradol has been ordered for additional pain control. 8. Discontinue Appleton. Connect Cordis to continuous CVP monitoring. 9. Continue left pleural Finn chest tube for another 24 hours. We will remove his mediastinal and right pleural chest tubes today. 10. Continue Coelho catheter for another 24 hours for strict accurate intake and output. Daily weights 11. Lasix 20 mg IV 1 now. 12. Discontinue nitroglycerin drip. 13. Keep atrial and ventricular epicardial pacemaker wires in place and connected to bedside backup pacemaker generator on a VVI 50. 14. Calcium gluconate 1 g IV piggyback 1 now. 15. Continue home dose of Synthroid 137 g by mouth before meals breakfast daily. 16. More recommendations to follow based on patient's clinical course. Time with Patient: Greater than 30
[2022-01-23] MEDS ORDERED: CALCIUM GLUCONATE IN NACL 1 GM in SALINE 1 100ML.BAG IVPB ONE (09:30)
[2022-01-23] MEDS: SODIUM CHLORIDE 0.9% 1,000 ML IV SCH (09:45)
[2022-01-23 10:15] LABS: Glucose,Whole Blood 154 mg/dL (70-110)
--- NOTE | 2022-01-23 10:17 | P.PN ---
Subjective Progress Note Date: 01/23/22 Principal diagnosis: Chest pain. Pulmonary consult dated 01/20/2022. A 81-year-old male who presented to the emergency department on January 18, complaining of chest pain. Chest pain had been going on for about a week or so and was exertional in nature. More recently, he had constant nonexertional chest pain for 4 hours before admission to the emergency department. He also was having some diaphoresis. There is no vomiting or abdominal pain. The patient was seen in the emergency room, admitted to the hospital with acute coronary syndrome. The pain did radiate up into his jaw and neck. This patient has a history of hyperlipidemia. The patient also smoked for about 15-18 years many years ago. 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 We were asked to see this patient, because he is apparently going to have bypass grafting on Thursday of this week. It appears that he doesn't have any significant lung disease. He denies any shortness of breath. He does not take any breathing medications at home. We have not yet seen his PFTs. White count 14.8, normal hemoglobin, hematocrit, and platelet count. PTT is 33. Sodium 134, potassium 4.3, chlorides 102, CO2 25, BUN 16, creatinine 0.9. Troponin was 200, subsequent troponin was 79.5. Chest x-ray was normal. Progress note dated 01/21/2022. This is a 81-year-old male who came to the emergency department with chest pain. Catheterization revealed significant coronary disease, and he is scheduled for bypass grafting tomorrow. He had lung function done at the bedside, showing an FEV1 that was 83% of predicted. He did smoke in the distant past. He denies any respiratory issues. Currently, the patient's getting saline IV, and IV heparin. He is therapeutic. White count 10.4, hemoglobin 13.9, hematocrit 42.8, and platelet count 244,000. No additional labs to note. Progress note dated 01/22/2022. 81-year-old male to undergo bypass grafting today. The patient will eventually end up back in the intensive care unit, where we will attempt to get him extubated as soon as possible. The patient's lung function was excellent. He should do well with surgery. No new labs this morning other than a glucose of 111. Progress note dated 01/23/2022. 81-year-old male postop day #1, status post three-vessel bypass grafting. The surgery was done by Dr. Valadez. The patient was extubated in timely fashion. He's currently on 3 L nasal cannula. He is getting saline at 20 mL an hour, and an insulin drip at 3.5 units an hour. White count 9.7, hemoglobin 10.7, hematocrit 33.1, and platelet count 215,000. Sodium 135, potassium 4.4, chlorides 102, CO2 22, BUN 24, creatinine 0.8. Chest x-ray shows removal of endotracheal tube, and some bibasilar atelectasis, and small effusion. Clinically, the patient appears to be doing relatively well. He is up in a chair. Other than pain at the surgical site, he has no major complaints. Objective - Vital Signs Vital signs: Vital Signs Temp 99.3 F 01/23/22 08:00 Pulse 81 01/23/22 08:00 Resp 16 01/23/22 08:00 BP 104/64 01/23/22 08:00 Pulse Ox 99 01/23/22 08:00 FiO2 45 01/22/22 21:25 Intake & Output 01/22/22 01/23/22 01/23/22 18:59 06:59 18:59 Intake Total 1774.076 5119.031 63.463 Output Total 2595 837 110 Balance -1432.224 465.031 -46.537 Weight 95 kg Intake: IV 1118 1284.5 60.5 ACETAMINOPHEN IV (For NPO 100 100 ) 1,000 mg In Empty Bag 1 bag @ 400 mls/hr IVPB Q6H [facility] Rx#:[id number] Albumin Human 25% 50 ml 500 In Empty Bag 1 bag @ 100 mls/hr IVPB ONCE ONE Rx#: [id number] CO/CI 120 410 Nitroglycerin-D5w Pmx 50 16.5 1.5 mg In Dextrose/Water 1 250ml.bag @ 5 MCG/MIN 1.5 mls/hr IV .Q24H [facility] Rx#: [id number] Pressure Bags 45 108 9 Sodium Chloride 0.9% 1, 250 600 50 000 ml @ 50 mls/hr IV . Q20H [facility] Rx#:[id number] ceFAZolin 2 gm In Sodium 50 50 Chloride 0.9% 50 ml @ 100 mls/hr IVPB ONCE ONE Rx# :[id number] Intake, IV Titration 44.776 17.531 2.963 Amount Dexmedetomidine/0.9% NaCl 16.872 4.484 (Pmx) 400 mcg In Empty Bag 1 bag @ 0.2 MCG/KG/HR 4.56 mls/hr IV .[id number] [facility] Rx#:[id number] Insulin Regular 100 unit 0.909 13.047 2.963 In Sodium Chloride 0.9% 100 ml @ Per Protocol IV .Q0M [facility] Rx#:[id number] propofoL 1,000 mg In 26.995 Empty Bag 1 bag @ Titrate IV .Q0M [facility] Rx#: [id number] Output: Chest Tube Drainage 340 450 80 Left Pleural 30 150 30 Mediastinal 160 130 0 Right Pleural 150 170 50 Drainage 15 Left Calf 15 Urine 755 372 30 Estimated Blood Loss 1500 Other: Voiding Method Indwelling Catheter Indwelling Catheter ABP, PAP, CO, CI - Last Documented Arterial Blood Pressure 110/57 Pulmonary Artery Pressure 33/10 Cardiac Output 7.8 Cardiac Index 3.7 - Exam No acute distress, oriented 3. Currently on 3 L nasal O2. HEENT examination is grossly unremarkable. Neck supple. Full range of motion. No adenopathy thyromegaly or neck vein distention. Cardiovascular examination reveals regular rhythm rate. S1-S2 normal. No S3 or S4. No discernible murmur noted. Heart rate 81 bpm. Lungs reveal mostly clear breath sounds. Breath sounds are equal bilaterally. No wheezes or crackles. Scattered mild rhonchi are noted. Saturations are 99%. Abdomen soft bowel sounds are heard. No masses or tenderness. Extremities are intact. No cyanosis clubbing or edema. Skin is without rash or lesion. Neurologic examination is brief but nonfocal. - Labs CBC & Chem 7: 01/23/22 05:08 01/23/22 05:08 Labs: Abnormal Lab Results - Last 24 Hours (Table) 01/21/22 01/22/22 01/22/22 Range/Units 05:18 09:02 10:28 WBC (3.8-10.6) k/uL RBC (4.30-5.90) m/uL Hgb (13.0-17.5) gm/dL Hct (39.0-53.0) % Neutrophils # (1.3-7.7) k/uL Lymphocytes # (1.0-4.8) k/uL ABG pO2 206 H 188 H (83-108) mmHg ABG HCO3 28 H 26 H (21-25) mmol/L ABG Total CO2 29 H 28 H (19-24) mmol/L ABG O2 Saturation 99.8 H 99.2 H (94-97) % ABG Hematocrit (34.0-46.0) % ABG Sodium (135-146) mmol/L ABG Potassium 3.3 L (3.4-4.5) mmol/L ABG Ionized Calcium (4.5-5.3) mg/dL ABG Glucose 108 H 121 H (75-99) mg/dL Hemoglobin 12.5 L (13.0-17.5) gm/dL Sodium (137-145) mmol/L BUN (9-20) mg/dL Glucose (74-99) mg/dL POC Glucose (mg/dL) (70-110) mg/dL Magnesium (1.6-2.3) mg/dL AST (17-59) U/L Total Protein (6.3-8.2) g/dL Albumin (3.5-5.0) g/dL Arterial Blood Potassium 3.3 L (3.4-4.5) mmol/L Arterial Blood Glucose 108 H 121 H (75-99) mg/dL Crossmatch See Detail 01/22/22 01/22/22 01/22/22 Range/Units 11:59 12:30 13:08 WBC (3.8-10.6) k/uL RBC (4.30-5.90) m/uL Hgb (13.0-17.5) gm/dL Hct (39.0-53.0) % Neutrophils # (1.3-7.7) k/uL Lymphocytes # (1.0-4.8) k/uL ABG pO2 295 H 299 H (83-108) mmHg ABG HCO3 26 H 26 H 26 H (21-25) mmol/L ABG Total CO2 27 H 27 H 27 H (19-24) mmol/L ABG O2 Saturation 99.8 H 99.6 H (94-97) % ABG Hematocrit 30 L 31 L 31 L (34.0-46.0) % ABG Sodium 133 L 134 L 134 L (135-146) mmol/L ABG Potassium (3.4-4.5) mmol/L ABG Ionized Calcium 4.2 L 4.3 L (4.5-5.3) mg/dL ABG Glucose 125 H 131 H 142 H (75-99) mg/dL Hemoglobin 9.8 L 10.1 L 10.1 L (13.0-17.5) gm/dL Sodium (137-145) mmol/L BUN (9-20) mg/dL Glucose (74-99) mg/dL POC Glucose (mg/dL) (70-110) mg/dL Magnesium (1.6-2.3) mg/dL AST (17-59) U/L Total Protein (6.3-8.2) g/dL Albumin (3.5-5.0) g/dL Arterial Blood Potassium (3.4-4.5) mmol/L Arterial Blood Glucose 125 H 131 H 142 H (75-99) mg/dL Crossmatch 01/22/22 01/22/22 01/22/22 Range/Units 14:07 14:09 14:09 WBC 11.7 H (3.8-10.6) k/uL RBC 3.65 L (4.30-5.90) m/uL Hgb 11.9 L (13.0-17.5) gm/dL Hct 35.3 L (39.0-53.0) % Neutrophils # 9.6 H (1.3-7.7) k/uL Lymphocytes # (1.0-4.8) k/uL ABG pO2 (83-108) mmHg ABG HCO3 (21-25) mmol/L ABG Total CO2 (19-24) mmol/L ABG O2 Saturation (94-97) % ABG Hematocrit (34.0-46.0) % ABG Sodium (135-146) mmol/L ABG Potassium (3.4-4.5) mmol/L ABG Ionized Calcium (4.5-5.3) mg/dL ABG Glucose (75-99) mg/dL Hemoglobin (13.0-17.5) gm/dL Sodium 134 L (137-145) mmol/L BUN (9-20) mg/dL Glucose 122 H (74-99) mg/dL POC Glucose (mg/dL) 132 H (70-110) mg/dL Magnesium 2.5 H (1.6-2.3) mg/dL AST 75 H (17-59) U/L Total Protein 5.0 L (6.3-8.2) g/dL Albumin 2.8 L (3.5-5.0) g/dL Arterial Blood Potassium (3.4-4.5) mmol/L Arterial Blood Glucose (75-99) mg/dL Crossmatch 01/22/22 01/22/22 01/22/22 Range/Units 14:38 16:07 16:36 WBC 12.1 H (3.8-10.6) k/uL RBC 3.77 L (4.30-5.90) m/uL Hgb 12.6 L (13.0-17.5) gm/dL Hct 37.2 L (39.0-53.0) % Neutrophils # 9.6 H (1.3-7.7) k/uL Lymphocytes # (1.0-4.8) k/uL ABG pO2 196 H (83-108) mmHg ABG HCO3 27 H (21-25) mmol/L ABG Total CO2 28 H (19-24) mmol/L ABG O2 Saturation 100.0 H (94-97) % ABG Hematocrit (34.0-46.0) % ABG Sodium (135-146) mmol/L ABG Potassium (3.4-4.5) mmol/L ABG Ionized Calcium (4.5-5.3) mg/dL ABG Glucose (75-99) mg/dL Hemoglobin (13.0-17.5) gm/dL Sodium (137-145) mmol/L BUN (9-20) mg/dL Glucose (74-99) mg/dL POC Glucose (mg/dL) 133 H (70-110) mg/dL Magnesium (1.6-2.3) mg/dL AST (17-59) U/L Total Protein (6.3-8.2) g/dL Albumin (3.5-5.0) g/dL Arterial Blood Potassium (3.4-4.5) mmol/L Arterial Blood Glucose (75-99) mg/dL Crossmatch 01/22/22 01/22/22 01/22/22 Range/Units 18:13 18:56 18:57 WBC (3.8-10.6) k/uL RBC 3.21 L (4.30-5.90) m/uL Hgb 10.4 L (13.0-17.5) gm/dL Hct 31.4 L (39.0-53.0) % Neutrophils # 8.4 H (1.3-7.7) k/uL Lymphocytes # 0.6 L (1.0-4.8) k/uL ABG pO2 (83-108) mmHg ABG HCO3 (21-25) mmol/L ABG Total CO2 (19-24) mmol/L ABG O2 Saturation (94-97) % ABG Hematocrit (34.0-46.0) % ABG Sodium (135-146) mmol/L ABG Potassium (3.4-4.5) mmol/L ABG Ionized Calcium (4.5-5.3) mg/dL ABG Glucose (75-99) mg/dL Hemoglobin (13.0-17.5) gm/dL Sodium (137-145) mmol/L BUN (9-20) mg/dL Glucose (74-99) mg/dL POC Glucose (mg/dL) 137 H 147 H (70-110) mg/dL Magnesium (1.6-2.3) mg/dL AST (17-59) U/L Total Protein (6.3-8.2) g/dL Albumin (3.5-5.0) g/dL Arterial Blood Potassium (3.4-4.5) mmol/L Arterial Blood Glucose (75-99) mg/dL Crossmatch 01/22/22 01/22/22 01/22/22 Range/Units 20:10 21:03 21:49 WBC (3.8-10.6) k/uL RBC (4.30-5.90) m/uL Hgb (13.0-17.5) gm/dL Hct (39.0-53.0) % Neutrophils # (1.3-7.7) k/uL Lymphocytes # (1.0-4.8) k/uL ABG pO2 (83-108) mmHg ABG HCO3 (21-25) mmol/L ABG Total CO2 26 H (19-24) mmol/L ABG O2 Saturation 98.7 H (94-97) % ABG Hematocrit (34.0-46.0) % ABG Sodium (135-146) mmol/L ABG Potassium (3.4-4.5) mmol/L ABG Ionized Calcium (4.5-5.3) mg/dL ABG Glucose (75-99) mg/dL Hemoglobin (13.0-17.5) gm/dL Sodium (137-145) mmol/L BUN (9-20) mg/dL Glucose (74-99) mg/dL POC Glucose (mg/dL) 138 H 139 H (70-110) mg/dL Magnesium (1.6-2.3) mg/dL AST (17-59) U/L Total Protein (6.3-8.2) g/dL Albumin (3.5-5.0) g/dL Arterial Blood Potassium (3.4-4.5) mmol/L Arterial Blood Glucose (75-99) mg/dL Crossmatch 01/22/22 01/22/22 01/23/22 Range/Units 22:06 23:05 00:09 WBC (3.8-10.6) k/uL RBC (4.30-5.90) m/uL Hgb (13.0-17.5) gm/dL Hct (39.0-53.0) % Neutrophils # (1.3-7.7) k/uL Lymphocytes # (1.0-4.8) k/uL ABG pO2 (83-108) mmHg ABG HCO3 (21-25) mmol/L ABG Total CO2 (19-24) mmol/L ABG O2 Saturation (94-97) % ABG Hematocrit (34.0-46.0) % ABG Sodium (135-146) mmol/L ABG Potassium (3.4-4.5) mmol/L ABG Ionized Calcium (4.5-5.3) mg/dL ABG Glucose (75-99) mg/dL Hemoglobin (13.0-17.5) gm/dL Sodium (137-145) mmol/L BUN (9-20) mg/dL Glucose (74-99) mg/dL POC Glucose (mg/dL) 142 H 140 H 144 H (70-110) mg/dL Magnesium (1.6-2.3) mg/dL AST (17-59) U/L Total Protein (6.3-8.2) g/dL Albumin (3.5-5.0) g/dL Arterial Blood Potassium (3.4-4.5) mmol/L Arterial Blood Glucose (75-99) mg/dL Crossmatch 01/23/22 01/23/22 01/23/22 Range/Units 01:10 02:14 03:08 WBC (3.8-10.6) k/uL RBC (4.30-5.90) m/uL Hgb (13.0-17.5) gm/dL Hct (39.0-53.0) % Neutrophils # (1.3-7.7) k/uL Lymphocytes # (1.0-4.8) k/uL ABG pO2 (83-108) mmHg ABG HCO3 (21-25) mmol/L ABG Total CO2 (19-24) mmol/L ABG O2 Saturation (94-97) % ABG Hematocrit (34.0-46.0) % ABG Sodium (135-146) mmol/L ABG Potassium (3.4-4.5) mmol/L ABG Ionized Calcium (4.5-5.3) mg/dL ABG Glucose (75-99) mg/dL Hemoglobin (13.0-17.5) gm/dL Sodium (137-145) mmol/L BUN (9-20) mg/dL Glucose (74-99) mg/dL POC Glucose (mg/dL) 142 H 133 H 127 H (70-110) mg/dL Magnesium (1.6-2.3) mg/dL AST (17-59) U/L Total Protein (6.3-8.2) g/dL Albumin (3.5-5.0) g/dL Arterial Blood Potassium (3.4-4.5) mmol/L Arterial Blood Glucose (75-99) mg/dL Crossmatch 01/23/22 01/23/22 01/23/22 Range/Units 04:16 05:08 05:08 WBC (3.8-10.6) k/uL RBC 3.37 L (4.30-5.90) m/uL Hgb 10.7 L (13.0-17.5) gm/dL Hct 33.1 L (39.0-53.0) % Neutrophils # 8.1 H (1.3-7.7) k/uL Lymphocytes # (1.0-4.8) k/uL ABG pO2 (83-108) mmHg ABG HCO3 (21-25) mmol/L ABG Total CO2 (19-24) mmol/L ABG O2 Saturation (94-97) % ABG Hematocrit (34.0-46.0) % ABG Sodium (135-146) mmol/L ABG Potassium (3.4-4.5) mmol/L ABG Ionized Calcium (4.5-5.3) mg/dL ABG Glucose (75-99) mg/dL Hemoglobin (13.0-17.5) gm/dL Sodium 135 L (137-145) mmol/L BUN 24 H (9-20) mg/dL Glucose 124 H (74-99) mg/dL POC Glucose (mg/dL) 128 H (70-110) mg/dL Magnesium (1.6-2.3) mg/dL AST (17-59) U/L Total Protein 5.5 L (6.3-8.2) g/dL Albumin (3.5-5.0) g/dL Arterial Blood Potassium (3.4-4.5) mmol/L Arterial Blood Glucose (75-99) mg/dL Crossmatch 01/23/22 01/23/22 01/23/22 Range/Units 05:12 06:47 08:10 WBC (3.8-10.6) k/uL RBC (4.30-5.90) m/uL Hgb (13.0-17.5) gm/dL Hct (39.0-53.0) % Neutrophils # (1.3-7.7) k/uL Lymphocytes # (1.0-4.8) k/uL ABG pO2 (83-108) mmHg ABG HCO3 (21-25) mmol/L ABG Total CO2 (19-24) mmol/L ABG O2 Saturation (94-97) % ABG Hematocrit (34.0-46.0) % ABG Sodium (135-146) mmol/L ABG Potassium (3.4-4.5) mmol/L ABG Ionized Calcium (4.5-5.3) mg/dL ABG Glucose (75-99) mg/dL Hemoglobin (13.0-17.5) gm/dL Sodium (137-145) mmol/L BUN (9-20) mg/dL Glucose (74-99) mg/dL POC Glucose (mg/dL) 140 H 145 H 196 H (70-110) mg/dL Magnesium (1.6-2.3) mg/dL AST (17-59) U/L Total Protein (6.3-8.2) g/dL Albumin (3.5-5.0) g/dL Arterial Blood Potassium (3.4-4.5) mmol/L Arterial Blood Glucose (75-99) mg/dL Crossmatch Assessment and Plan Assessment: Non-ST segment elevation myocardial infarction. Postop day #1, status post three-vessel bypass grafting. Routine postoperative ventilator management. CAD, with previous PCI, and stent placement. History of hyperlipidemia. No apparent chronic lung disease, with an FEV1 that is 83% of predicted. History of hypothyroidism. Previous history of tobacco use. Plan: Plan dated 01/20/2022. Today, we explained to the patient, our role in his care. I told him was to follow. Initially, we will work to get him off the mechanical ventilator. Subsequent to that, we'll see him on a daily basis, and keep his lungs healthy. We did talk about the importance of deep breathing, coughing, clearing of secretions, and hourly use of the incentive spirometer. Additional recommendations and suggestions are forthcoming. Prognosis is thought to be generally good. We have yet to see his spirometry. Chest x-ray, labs, and med ications are reviewed. Plan dated 01/21/2022. The patient spirometry was read by my partner. FEV1 is well over 2 L, and 83% of predicted. The patient should do well from the pulmonary standpoint. We will continue to follow the patient and make recommendations along the way. We do encourage deep breathing, coughing, and clearing of secretions, as well as hourly use of the incentive spirometer. Plan dated 01/22/2022. The patient will be seen back in the ICU, once he gets back from the operating room. Additional recommendations and suggestions are forthcoming. We'll attempt to get the patient extubated as soon as possible. Labs, x-rays, and medications are reviewed. We will continue to follow and make recommendations along the way. Plan dated 01/23/2022. The patient appears to be doing reasonably well. He remains on 3 L, and insulin drip at 3.5 units an hour. Hemodynamically, he stable. His respiratory status also appears to be stable. His labs, x-rays, and medications are reviewed. He is postop day #1. We encourage deep breathing, coughing, and clearing his secretions, as well as hourly use of the incentive spirometer. Additional recommendations and suggestions will be made. Prognosis is guarded. Time with Patient: Greater than 30
--- NOTE | 2022-01-23 11:22 | P.PN ---
Subjective Patient is resting comfortably in a chair No chest discomfort no shortness of breath On examination pulse rate in the 70s, blood pressure 100/64 mmHg Breath sounds are reduced currently the bases Heart sounds S1 and S2 are soft Hemoglobin 10.7 Sodium 135 potassium 4.0 BUN 24 and creatinine 0.8 Impression Non-Q wave myocardial infarction Underlying severe triple vessel coronary artery disease LV systolic dysfunction Remote history of PCI to the LAD and circumflex Status post coronary artery bypass grafting Plan Continue current medications in ICU treatment Continue aspirin and Plavix Continue atorvastatin Continue low-dose beta shantel When necessary use of IV amiodarone for atrial fibrillation Objective - Vital Signs Vital signs: Vital Signs Temp 99.3 F 01/23/22 08:00 Pulse 74 01/23/22 10:00 Resp 12 01/23/22 10:00 BP 100/64 01/23/22 10:00 Pulse Ox 98 01/23/22 10:00 FiO2 45 01/22/22 21:25 Intake & Output 01/22/22 01/23/22 01/23/22 18:59 06:59 18:59 Intake Total 8442.478 8626.031 397.651 Output Total 2595 837 330 Balance -1432.224 465.031 67.651 Weight 95 kg Intake: IV 1118 1284.5 387.5 ACETAMINOPHEN IV (For NPO 100 100 ) 1,000 mg In Empty Bag 1 bag @ 400 mls/hr IVPB Q6H [facility] Rx#:[id number] Albumin Human 25% 50 ml 500 In Empty Bag 1 bag @ 100 mls/hr IVPB ONCE ONE Rx#: [id number] CO/CI 120 410 40 Calcium Gluconate in NaCl 100 1 gm In Saline 1 100ml. bag @ 100 mls/hr IVPB ONCE ONE Rx#:[id number] Nitroglycerin-D5w Pmx 50 16.5 1.5 mg In Dextrose/Water 1 250ml.bag @ 5 MCG/MIN 1.5 mls/hr IV .Q24H [facility] Rx#: [id number] Pressure Bags 45 108 36 Sodium Chloride 0.9% 1, 250 600 160 000 ml @ 50 mls/hr IV . Q20H [facility] Rx#:[id number] ceFAZolin 2 gm In Sodium 50 50 Chloride 0.9% 50 ml @ 100 mls/hr IVPB ONCE ONE Rx# :[id number] ceFAZolin 2 gm In Sodium 50 Chloride 0.9% 50 ml @ 100 mls/hr IVPB ONCE ONE Rx# :[id number] Intake, IV Titration 44.776 17.531 10.151 Amount Dexmedetomidine/0.9% NaCl 16.872 4.484 (Pmx) 400 mcg In Empty Bag 1 bag @ 0.2 MCG/KG/HR 4.56 mls/hr IV .[id number] [facility] Rx#:[id number] Insulin Regular 100 unit 0.909 13.047 10.151 In Sodium Chloride 0.9% 100 ml @ Per Protocol IV .Q0M [facility] Rx#:[id number] propofoL 1,000 mg In 26.995 Empty Bag 1 bag @ Titrate IV .Q0M [facility] Rx#: [id number] Output: Chest Tube Drainage 340 450 260 L Pleural 150 170 120 Mediastinal 160 130 20 R Pleural 30 150 120 Drainage 15 Left Calf 15 Urine 755 372 70 Estimated Blood Loss 1500 Other: Voiding Method Indwelling Catheter Indwelling Catheter Indwelling Catheter ABP, PAP, CO, CI - Last Documented Arterial Blood Pressure 92/49 Pulmonary Artery Pressure 21/9 Cardiac Output 4.7 Cardiac Index 2.2 - Labs CBC & Chem 7: 01/23/22 05:08 01/23/22 05:08 Labs: Abnormal Lab Results - Last 24 Hours (Table) 01/21/22 01/22/22 01/22/22 Range/Units 05:18 09:02 10:28 WBC (3.8-10.6) k/uL RBC (4.30-5.90) m/uL Hgb (13.0-17.5) gm/dL Hct (39.0-53.0) % Neutrophils # (1.3-7.7) k/uL Lymphocytes # (1.0-4.8) k/uL ABG pO2 206 H 188 H (83-108) mmHg ABG HCO3 28 H 26 H (21-25) mmol/L ABG Total CO2 29 H 28 H (19-24) mmol/L ABG O2 Saturation 99.8 H 99.2 H (94-97) % ABG Hematocrit (34.0-46.0) % ABG Sodium (135-146) mmol/L ABG Potassium 3.3 L (3.4-4.5) mmol/L ABG Ionized Calcium (4.5-5.3) mg/dL ABG Glucose 108 H 121 H (75-99) mg/dL Hemoglobin 12.5 L (13.0-17.5) gm/dL Sodium (137-145) mmol/L BUN (9-20) mg/dL Glucose (74-99) mg/dL POC Glucose (mg/dL) (70-110) mg/dL Magnesium (1.6-2.3) mg/dL AST (17-59) U/L Total Protein (6.3-8.2) g/dL Albumin (3.5-5.0) g/dL Arterial Blood Potassium 3.3 L (3.4-4.5) mmol/L Arterial Blood Glucose 108 H 121 H (75-99) mg/dL Crossmatch See Detail 01/22/22 01/22/22 01/22/22 Range/Units 11:59 12:30 13:08 WBC (3.8-10.6) k/uL RBC (4.30-5.90) m/uL Hgb (13.0-17.5) gm/dL Hct (39.0-53.0) % Neutrophils # (1.3-7.7) k/uL Lymphocytes # (1.0-4.8) k/uL ABG pO2 295 H 299 H (83-108) mmHg ABG HCO3 26 H 26 H 26 H (21-25) mmol/L ABG Total CO2 27 H 27 H 27 H (19-24) mmol/L ABG O2 Saturation 99.8 H 99.6 H (94-97) % ABG Hematocrit 30 L 31 L 31 L (34.0-46.0) % ABG Sodium 133 L 134 L 134 L (135-146) mmol/L ABG Potassium (3.4-4.5) mmol/L ABG Ionized Calcium 4.2 L 4.3 L (4.5-5.3) mg/dL ABG Glucose 125 H 131 H 142 H (75-99) mg/dL Hemoglobin 9.8 L 10.1 L 10.1 L (13.0-17.5) gm/dL Sodium (137-145) mmol/L BUN (9-20) mg/dL Glucose (74-99) mg/dL POC Glucose (mg/dL) (70-110) mg/dL Magnesium (1.6-2.3) mg/dL AST (17-59) U/L Total Protein (6.3-8.2) g/dL Albumin (3.5-5.0) g/dL Arterial Blood Potassium (3.4-4.5) mmol/L Arterial Blood Glucose 125 H 131 H 142 H (75-99) mg/dL Crossmatch 01/22/22 01/22/22 01/22/22 Range/Units 14:07 14:09 14:09 WBC 11.7 H (3.8-10.6) k/uL RBC 3.65 L (4.30-5.90) m/uL Hgb 11.9 L (13.0-17.5) gm/dL Hct 35.3 L (39.0-53.0) % Neutrophils # 9.6 H (1.3-7.7) k/uL Lymphocytes # (1.0-4.8) k/uL ABG pO2 (83-108) mmHg ABG HCO3 (21-25) mmol/L ABG Total CO2 (19-24) mmol/L ABG O2 Saturation (94-97) % ABG Hematocrit (34.0-46.0) % ABG Sodium (135-146) mmol/L ABG Potassium (3.4-4.5) mmol/L ABG Ionized Calcium (4.5-5.3) mg/dL ABG Glucose (75-99) mg/dL Hemoglobin (13.0-17.5) gm/dL Sodium 134 L (137-145) mmol/L BUN (9-20) mg/dL Glucose 122 H (74-99) mg/dL POC Glucose (mg/dL) 132 H (70-110) mg/dL Magnesium 2.5 H (1.6-2.3) mg/dL AST 75 H (17-59) U/L Total Protein 5.0 L (6.3-8.2) g/dL Albumin 2.8 L (3.5-5.0) g/dL Arterial Blood Potassium (3.4-4.5) mmol/L Arterial Blood Glucose (75-99) mg/dL Crossmatch 01/22/22 01/22/22 01/22/22 Range/Units 14:38 16:07 16:36 WBC 12.1 H (3.8-10.6) k/uL RBC 3.77 L (4.30-5.90) m/uL Hgb 12.6 L (13.0-17.5) gm/dL Hct 37.2 L (39.0-53.0) % Neutrophils # 9.6 H (1.3-7.7) k/uL Lymphocytes # (1.0-4.8) k/uL ABG pO2 196 H (83-108) mmHg ABG HCO3 27 H (21-25) mmol/L ABG Total CO2 28 H (19-24) mmol/L ABG O2 Saturation 100.0 H (94-97) % ABG Hematocrit (34.0-46.0) % ABG Sodium (135-146) mmol/L ABG Potassium (3.4-4.5) mmol/L ABG Ionized Calcium (4.5-5.3) mg/dL ABG Glucose (75-99) mg/dL Hemoglobin (13.0-17.5) gm/dL Sodium (137-145) mmol/L BUN (9-20) mg/dL Glucose (74-99) mg/dL POC Glucose (mg/dL) 133 H (70-110) mg/dL Magnesium (1.6-2.3) mg/dL AST (17-59) U/L Total Protein (6.3-8.2) g/dL Albumin (3.5-5.0) g/dL Arterial Blood Potassium (3.4-4.5) mmol/L Arterial Blood Glucose (75-99) mg/dL Crossmatch 01/22/22 01/22/22 01/22/22 Range/Units 18:13 18:56 18:57 WBC (3.8-10.6) k/uL RBC 3.21 L (4.30-5.90) m/uL Hgb 10.4 L (13.0-17.5) gm/dL Hct 31.4 L (39.0-53.0) % Neutrophils # 8.4 H (1.3-7.7) k/uL Lymphocytes # 0.6 L (1.0-4.8) k/uL ABG pO2 (83-108) mmHg ABG HCO3 (21-25) mmol/L ABG Total CO2 (19-24) mmol/L ABG O2 Saturation (94-97) % ABG Hematocrit (34.0-46.0) % ABG Sodium (135-146) mmol/L ABG Potassium (3.4-4.5) mmol/L ABG Ionized Calcium (4.5-5.3) mg/dL ABG Glucose (75-99) mg/dL Hemoglobin (13.0-17.5) gm/dL Sodium (137-145) mmol/L BUN (9-20) mg/dL Glucose (74-99) mg/dL POC Glucose (mg/dL) 137 H 147 H (70-110) mg/dL Magnesium (1.6-2.3) mg/dL AST (17-59) U/L Total Protein (6.3-8.2) g/dL Albumin (3.5-5.0) g/dL Arterial Blood Potassium (3.4-4.5) mmol/L Arterial Blood Glucose (75-99) mg/dL Crossmatch 01/22/22 01/22/22 01/22/22 Range/Units 20:10 21:03 21:49 WBC (3.8-10.6) k/uL RBC (4.30-5.90) m/uL Hgb (13.0-17.5) gm/dL Hct (39.0-53.0) % Neutrophils # (1.3-7.7) k/uL Lymphocytes # (1.0-4.8) k/uL ABG pO2 (83-108) mmHg ABG HCO3 (21-25) mmol/L ABG Total CO2 26 H (19-24) mmol/L ABG O2 Saturation 98.7 H (94-97) % ABG Hematocrit (34.0-46.0) % ABG Sodium (135-146) mmol/L ABG Potassium (3.4-4.5) mmol/L ABG Ionized Calcium (4.5-5.3) mg/dL ABG Glucose (75-99) mg/dL Hemoglobin (13.0-17.5) gm/dL Sodium (137-145) mmol/L BUN (9-20) mg/dL Glucose (74-99) mg/dL POC Glucose (mg/dL) 138 H 139 H (70-110) mg/dL Magnesium (1.6-2.3) mg/dL AST (17-59) U/L Total Protein (6.3-8.2) g/dL Albumin (3.5-5.0) g/dL Arterial Blood Potassium (3.4-4.5) mmol/L Arterial Blood Glucose (75-99) mg/dL Crossmatch 01/22/22 01/22/22 01/23/22 Range/Units 22:06 23:05 00:09 WBC (3.8-10.6) k/uL RBC (4.30-5.90) m/uL Hgb (13.0-17.5) gm/dL Hct (39.0-53.0) % Neutrophils # (1.3-7.7) k/uL Lymphocytes # (1.0-4.8) k/uL ABG pO2 (83-108) mmHg ABG HCO3 (21-25) mmol/L ABG Total CO2 (19-24) mmol/L ABG O2 Saturation (94-97) % ABG Hematocrit (34.0-46.0) % ABG Sodium (135-146) mmol/L ABG Potassium (3.4-4.5) mmol/L ABG Ionized Calcium (4.5-5.3) mg/dL ABG Glucose (75-99) mg/dL Hemoglobin (13.0-17.5) gm/dL Sodium (137-145) mmol/L BUN (9-20) mg/dL Glucose (74-99) mg/dL POC Glucose (mg/dL) 142 H 140 H 144 H (70-110) mg/dL Magnesium (1.6-2.3) mg/dL AST (17-59) U/L Total Protein (6.3-8.2) g/dL Albumin (3.5-5.0) g/dL Arterial Blood Potassium (3.4-4.5) mmol/L Arterial Blood Glucose (75-99) mg/dL Crossmatch 01/23/22 01/23/22 01/23/22 Range/Units 01:10 02:14 03:08 WBC (3.8-10.6) k/uL RBC (4.30-5.90) m/uL Hgb (13.0-17.5) gm/dL Hct (39.0-53.0) % Neutrophils # (1.3-7.7) k/uL Lymphocytes # (1.0-4.8) k/uL ABG pO2 (83-108) mmHg ABG HCO3 (21-25) mmol/L ABG Total CO2 (19-24) mmol/L ABG O2 Saturation (94-97) % ABG Hematocrit (34.0-46.0) % ABG Sodium (135-146) mmol/L ABG Potassium (3.4-4.5) mmol/L ABG Ionized Calcium (4.5-5.3) mg/dL ABG Glucose (75-99) mg/dL Hemoglobin (13.0-17.5) gm/dL Sodium (137-145) mmol/L BUN (9-20) mg/dL Glucose (74-99) mg/dL POC Glucose (mg/dL) 142 H 133 H 127 H (70-110) mg/dL Magnesium (1.6-2.3) mg/dL AST (17-59) U/L Total Protein (6.3-8.2) g/dL Albumin (3.5-5.0) g/dL Arterial Blood Potassium (3.4-4.5) mmol/L Arterial Blood Glucose (75-99) mg/dL Crossmatch 01/23/22 01/23/22 01/23/22 Range/Units 04:16 05:08 05:08 WBC (3.8-10.6) k/uL RBC 3.37 L (4.30-5.90) m/uL Hgb 10.7 L (13.0-17.5) gm/dL Hct 33.1 L (39.0-53.0) % Neutrophils # 8.1 H (1.3-7.7) k/uL Lymphocytes # (1.0-4.8) k/uL ABG pO2 (83-108) mmHg ABG HCO3 (21-25) mmol/L ABG Total CO2 (19-24) mmol/L ABG O2 Saturation (94-97) % ABG Hematocrit (34.0-46.0) % ABG Sodium (135-146) mmol/L ABG Potassium (3.4-4.5) mmol/L ABG Ionized Calcium (4.5-5.3) mg/dL ABG Glucose (75-99) mg/dL Hemoglobin (13.0-17.5) gm/dL Sodium 135 L (137-145) mmol/L BUN 24 H (9-20) mg/dL Glucose 124 H (74-99) mg/dL POC Glucose (mg/dL) 128 H (70-110) mg/dL Magnesium (1.6-2.3) mg/dL AST (17-59) U/L Total Protein 5.5 L (6.3-8.2) g/dL Albumin (3.5-5.0) g/dL Arterial Blood Potassium (3.4-4.5) mmol/L Arterial Blood Glucose (75-99) mg/dL Crossmatch 01/23/22 01/23/22 01/23/22 Range/Units 05:12 06:47 08:10 WBC (3.8-10.6) k/uL RBC (4.30-5.90) m/uL Hgb (13.0-17.5) gm/dL Hct (39.0-53.0) % Neutrophils # (1.3-7.7) k/uL Lymphocytes # (1.0-4.8) k/uL ABG pO2 (83-108) mmHg ABG HCO3 (21-25) mmol/L ABG Total CO2 (19-24) mmol/L ABG O2 Saturation (94-97) % ABG Hematocrit (34.0-46.0) % ABG Sodium (135-146) mmol/L ABG Potassium (3.4-4.5) mmol/L ABG Ionized Calcium (4.5-5.3) mg/dL ABG Glucose (75-99) mg/dL Hemoglobin (13.0-17.5) gm/dL Sodium (137-145) mmol/L BUN (9-20) mg/dL Glucose (74-99) mg/dL POC Glucose (mg/dL) 140 H 145 H 196 H (70-110) mg/dL Magnesium (1.6-2.3) mg/dL AST (17-59) U/L Total Protein (6.3-8.2) g/dL Albumin (3.5-5.0) g/dL Arterial Blood Potassium (3.4-4.5) mmol/L Arterial Blood Glucose (75-99) mg/dL Crossmatch 01/23/22 Range/Units 10:03 WBC (3.8-10.6) k/uL RBC (4.30-5.90) m/uL Hgb (13.0-17.5) gm/dL Hct (39.0-53.0) % Neutrophils # (1.3-7.7) k/uL Lymphocytes # (1.0-4.8) k/uL ABG pO2 (83-108) mmHg ABG HCO3 (21-25) mmol/L ABG Total CO2 (19-24) mmol/L ABG O2 Saturation (94-97) % ABG Hematocrit (34.0-46.0) % ABG Sodium (135-146) mmol/L ABG Potassium (3.4-4.5) mmol/L ABG Ionized Calcium (4.5-5.3) mg/dL ABG Glucose (75-99) mg/dL Hemoglobin (13.0-17.5) gm/dL Sodium (137-145) mmol/L BUN (9-20) mg/dL Glucose (74-99) mg/dL POC Glucose (mg/dL) 154 H (70-110) mg/dL Magnesium (1.6-2.3) mg/dL AST (17-59) U/L Total Protein (6.3-8.2) g/dL Albumin (3.5-5.0) g/dL Arterial Blood Potassium (3.4-4.5) mmol/L Arterial Blood Glucose (75-99) mg/dL Crossmatch
--- NOTE | 2022-01-23 11:22 | P.PN ---
Subjective Progress Note Date: 01/23/22 Principal diagnosis: Chest pain Patient is s/p bypass surgery. He is having pain with movement but otherwise doing well. No sob. No fevers. Objective - Vital Signs Vital signs: Vital Signs Temp 99.3 F 01/23/22 08:00 Pulse 74 01/23/22 10:00 Resp 12 01/23/22 10:00 BP 100/64 01/23/22 10:00 Pulse Ox 98 01/23/22 10:00 FiO2 45 01/22/22 21:25 Intake & Output 01/22/22 01/23/22 01/23/22 18:59 06:59 18:59 Intake Total 3033.328 2169.031 397.651 Output Total 2595 837 330 Balance -1432.224 465.031 67.651 Weight 95 kg Intake: IV 1118 1284.5 387.5 ACETAMINOPHEN IV (For NPO 100 100 ) 1,000 mg In Empty Bag 1 bag @ 400 mls/hr IVPB Q6H [facility] Rx#:[id number] Albumin Human 25% 50 ml 500 In Empty Bag 1 bag @ 100 mls/hr IVPB ONCE ONE Rx#: [id number] CO/CI 120 410 40 Calcium Gluconate in NaCl 100 1 gm In Saline 1 100ml. bag @ 100 mls/hr IVPB ONCE ONE Rx#:[id number] Nitroglycerin-D5w Pmx 50 16.5 1.5 mg In Dextrose/Water 1 250ml.bag @ 5 MCG/MIN 1.5 mls/hr IV .Q24H [facility] Rx#: [id number] Pressure Bags 45 108 36 Sodium Chloride 0.9% 1, 250 600 160 000 ml @ 50 mls/hr IV . Q20H [facility] Rx#:[id number] ceFAZolin 2 gm In Sodium 50 50 Chloride 0.9% 50 ml @ 100 mls/hr IVPB ONCE ONE Rx# :[id number] ceFAZolin 2 gm In Sodium 50 Chloride 0.9% 50 ml @ 100 mls/hr IVPB ONCE ONE Rx# :[id number] Intake, IV Titration 44.776 17.531 10.151 Amount Dexmedetomidine/0.9% NaCl 16.872 4.484 (Pmx) 400 mcg In Empty Bag 1 bag @ 0.2 MCG/KG/HR 4.56 mls/hr IV .[id number] [facility] Rx#:[id number] Insulin Regular 100 unit 0.909 13.047 10.151 In Sodium Chloride 0.9% 100 ml @ Per Protocol IV .Q0M [facility] Rx#:[id number] propofoL 1,000 mg In 26.995 Empty Bag 1 bag @ Titrate IV .Q0M [facility] Rx#: [id number] Output: Chest Tube Drainage 340 450 260 L Pleural 150 170 120 Mediastinal 160 130 20 R Pleural 30 150 120 Drainage 15 Left Calf 15 Urine 755 372 70 Estimated Blood Loss 1500 Other: Voiding Method Indwelling Catheter Indwelling Catheter Indwelling Catheter ABP, PAP, CO, CI - Last Documented Arterial Blood Pressure 92/49 Pulmonary Artery Pressure 21/9 Cardiac Output 4.7 Cardiac Index 2.2 - Exam Constitutional: No acute distress, conversant, pleasant Eyes:Anicteric sclerae, moist conjunctiva, no lid-lag, PERRLA, ENMT: Oropharynx clear, no erythema, exudates Neck: Supple, FROM, no masses, or JVD, No carotid bruits, No thyromegaly Lungs: Clear to auscultation, Clear to percussion, Normal respiratory effort, no accessory muscle use Cardiovascular: Heart regular in rate and rhythm, No murmurs, gallops, or rubs, No peripheral edema Abdominal: Soft, Nontender, no guarding, rebound or rigidity, Normoactive bowel sounds, No hepatomegaly, No splenomegaly, No palpable mass Skin: Normal temperature, tone, texture, turgor, no induration, No subcutaneous nodules, No rash, lesions, No ulcers Extremities: No digital cyanosis, No clubbing, Pedal pulses intact and symmetrical, Radial pulses intact and symmetrical, No calf tenderness Psychiatric: Alert and oriented to person, place and time, appropriate affect, intact judgement Neuro: Muscles Strength 5/5 in all 4 extremities, Sensation to light touch grossly present throughout, Cranial nerves II-XII grossly intact, no focal sensory deficits - Labs CBC & Chem 7: 01/23/22 05:08 01/23/22 05:08 Labs: Abnormal Lab Results - Last 24 Hours (Table) 01/21/22 01/22/22 01/22/22 Range/Units 05:18 09:02 10:28 WBC (3.8-10.6) k/uL RBC (4.30-5.90) m/uL Hgb (13.0-17.5) gm/dL Hct (39.0-53.0) % Neutrophils # (1.3-7.7) k/uL Lymphocytes # (1.0-4.8) k/uL ABG pO2 206 H 188 H (83-108) mmHg ABG HCO3 28 H 26 H (21-25) mmol/L ABG Total CO2 29 H 28 H (19-24) mmol/L ABG O2 Saturation 99.8 H 99.2 H (94-97) % ABG Hematocrit (34.0-46.0) % ABG Sodium (135-146) mmol/L ABG Potassium 3.3 L (3.4-4.5) mmol/L ABG Ionized Calcium (4.5-5.3) mg/dL ABG Glucose 108 H 121 H (75-99) mg/dL Hemoglobin 12.5 L (13.0-17.5) gm/dL Sodium (137-145) mmol/L BUN (9-20) mg/dL Glucose (74-99) mg/dL POC Glucose (mg/dL) (70-110) mg/dL Magnesium (1.6-2.3) mg/dL AST (17-59) U/L Total Protein (6.3-8.2) g/dL Albumin (3.5-5.0) g/dL Arterial Blood Potassium 3.3 L (3.4-4.5) mmol/L Arterial Blood Glucose 108 H 121 H (75-99) mg/dL Crossmatch See Detail 01/22/22 01/22/22 01/22/22 Range/Units 11:59 12:30 13:08 WBC (3.8-10.6) k/uL RBC (4.30-5.90) m/uL Hgb (13.0-17.5) gm/dL Hct (39.0-53.0) % Neutrophils # (1.3-7.7) k/uL Lymphocytes # (1.0-4.8) k/uL ABG pO2 295 H 299 H (83-108) mmHg ABG HCO3 26 H 26 H 26 H (21-25) mmol/L ABG Total CO2 27 H 27 H 27 H (19-24) mmol/L ABG O2 Saturation 99.8 H 99.6 H (94-97) % ABG Hematocrit 30 L 31 L 31 L (34.0-46.0) % ABG Sodium 133 L 134 L 134 L (135-146) mmol/L ABG Potassium (3.4-4.5) mmol/L ABG Ionized Calcium 4.2 L 4.3 L (4.5-5.3) mg/dL ABG Glucose 125 H 131 H 142 H (75-99) mg/dL Hemoglobin 9.8 L 10.1 L 10.1 L (13.0-17.5) gm/dL Sodium (137-145) mmol/L BUN (9-20) mg/dL Glucose (74-99) mg/dL POC Glucose (mg/dL) (70-110) mg/dL Magnesium (1.6-2.3) mg/dL AST (17-59) U/L Total Protein (6.3-8.2) g/dL Albumin (3.5-5.0) g/dL Arterial Blood Potassium (3.4-4.5) mmol/L Arterial Blood Glucose 125 H 131 H 142 H (75-99) mg/dL Crossmatch 01/22/22 01/22/22 01/22/22 Range/Units 14:07 14:09 14:09 WBC 11.7 H (3.8-10.6) k/uL RBC 3.65 L (4.30-5.90) m/uL Hgb 11.9 L (13.0-17.5) gm/dL Hct 35.3 L (39.0-53.0) % Neutrophils # 9.6 H (1.3-7.7) k/uL Lymphocytes # (1.0-4.8) k/uL ABG pO2 (83-108) mmHg ABG HCO3 (21-25) mmol/L ABG Total CO2 (19-24) mmol/L ABG O2 Saturation (94-97) % ABG Hematocrit (34.0-46.0) % ABG Sodium (135-146) mmol/L ABG Potassium (3.4-4.5) mmol/L ABG Ionized Calcium (4.5-5.3) mg/dL ABG Glucose (75-99) mg/dL Hemoglobin (13.0-17.5) gm/dL Sodium 134 L (137-145) mmol/L BUN (9-20) mg/dL Glucose 122 H (74-99) mg/dL POC Glucose (mg/dL) 132 H (70-110) mg/dL Magnesium 2.5 H (1.6-2.3) mg/dL AST 75 H (17-59) U/L Total Protein 5.0 L (6.3-8.2) g/dL Albumin 2.8 L (3.5-5.0) g/dL Arterial Blood Potassium (3.4-4.5) mmol/L Arterial Blood Glucose (75-99) mg/dL Crossmatch 01/22/22 01/22/22 01/22/22 Range/Units 14:38 16:07 16:36 WBC 12.1 H (3.8-10.6) k/uL RBC 3.77 L (4.30-5.90) m/uL Hgb 12.6 L (13.0-17.5) gm/dL Hct 37.2 L (39.0-53.0) % Neutrophils # 9.6 H (1.3-7.7) k/uL Lymphocytes # (1.0-4.8) k/uL ABG pO2 196 H (83-108) mmHg ABG HCO3 27 H (21-25) mmol/L ABG Total CO2 28 H (19-24) mmol/L ABG O2 Saturation 100.0 H (94-97) % ABG Hematocrit (34.0-46.0) % ABG Sodium (135-146) mmol/L ABG Potassium (3.4-4.5) mmol/L ABG Ionized Calcium (4.5-5.3) mg/dL ABG Glucose (75-99) mg/dL Hemoglobin (13.0-17.5) gm/dL Sodium (137-145) mmol/L BUN (9-20) mg/dL Glucose (74-99) mg/dL POC Glucose (mg/dL) 133 H (70-110) mg/dL Magnesium (1.6-2.3) mg/dL AST (17-59) U/L Total Protein (6.3-8.2) g/dL Albumin (3.5-5.0) g/dL Arterial Blood Potassium (3.4-4.5) mmol/L Arterial Blood Glucose (75-99) mg/dL Crossmatch 01/22/22 01/22/22 01/22/22 Range/Units 18:13 18:56 18:57 WBC (3.8-10.6) k/uL RBC 3.21 L (4.30-5.90) m/uL Hgb 10.4 L (13.0-17.5) gm/dL Hct 31.4 L (39.0-53.0) % Neutrophils # 8.4 H (1.3-7.7) k/uL Lymphocytes # 0.6 L (1.0-4.8) k/uL ABG pO2 (83-108) mmHg ABG HCO3 (21-25) mmol/L ABG Total CO2 (19-24) mmol/L ABG O2 Saturation (94-97) % ABG Hematocrit (34.0-46.0) % ABG Sodium (135-146) mmol/L ABG Potassium (3.4-4.5) mmol/L ABG Ionized Calcium (4.5-5.3) mg/dL ABG Glucose (75-99) mg/dL Hemoglobin (13.0-17.5) gm/dL Sodium (137-145) mmol/L BUN (9-20) mg/dL Glucose (74-99) mg/dL POC Glucose (mg/dL) 137 H 147 H (70-110) mg/dL Magnesium (1.6-2.3) mg/dL AST (17-59) U/L Total Protein (6.3-8.2) g/dL Albumin (3.5-5.0) g/dL Arterial Blood Potassium (3.4-4.5) mmol/L Arterial Blood Glucose (75-99) mg/dL Crossmatch 01/22/22 01/22/22 01/22/22 Range/Units 20:10 21:03 21:49 WBC (3.8-10.6) k/uL RBC (4.30-5.90) m/uL Hgb (13.0-17.5) gm/dL Hct (39.0-53.0) % Neutrophils # (1.3-7.7) k/uL Lymphocytes # (1.0-4.8) k/uL ABG pO2 (83-108) mmHg ABG HCO3 (21-25) mmol/L ABG Total CO2 26 H (19-24) mmol/L ABG O2 Saturation 98.7 H (94-97) % ABG Hematocrit (34.0-46.0) % ABG Sodium (135-146) mmol/L ABG Potassium (3.4-4.5) mmol/L ABG Ionized Calcium (4.5-5.3) mg/dL ABG Glucose (75-99) mg/dL Hemoglobin (13.0-17.5) gm/dL Sodium (137-145) mmol/L BUN (9-20) mg/dL Glucose (74-99) mg/dL POC Glucose (mg/dL) 138 H 139 H (70-110) mg/dL Magnesium (1.6-2.3) mg/dL AST (17-59) U/L Total Protein (6.3-8.2) g/dL Albumin (3.5-5.0) g/dL Arterial Blood Potassium (3.4-4.5) mmol/L Arterial Blood Glucose (75-99) mg/dL Crossmatch 01/22/22 01/22/22 01/23/22 Range/Units 22:06 23:05 00:09 WBC (3.8-10.6) k/uL RBC (4.30-5.90) m/uL Hgb (13.0-17.5) gm/dL Hct (39.0-53.0) % Neutrophils # (1.3-7.7) k/uL Lymphocytes # (1.0-4.8) k/uL ABG pO2 (83-108) mmHg ABG HCO3 (21-25) mmol/L ABG Total CO2 (19-24) mmol/L ABG O2 Saturation (94-97) % ABG Hematocrit (34.0-46.0) % ABG Sodium (135-146) mmol/L ABG Potassium (3.4-4.5) mmol/L ABG Ionized Calcium (4.5-5.3) mg/dL ABG Glucose (75-99) mg/dL Hemoglobin (13.0-17.5) gm/dL Sodium (137-145) mmol/L BUN (9-20) mg/dL Glucose (74-99) mg/dL POC Glucose (mg/dL) 142 H 140 H 144 H (70-110) mg/dL Magnesium (1.6-2.3) mg/dL AST (17-59) U/L Total Protein (6.3-8.2) g/dL Albumin (3.5-5.0) g/dL Arterial Blood Potassium (3.4-4.5) mmol/L Arterial Blood Glucose (75-99) mg/dL Crossmatch 01/23/22 01/23/22 01/23/22 Range/Units 01:10 02:14 03:08 WBC (3.8-10.6) k/uL RBC (4.30-5.90) m/uL Hgb (13.0-17.5) gm/dL Hct (39.0-53.0) % Neutrophils # (1.3-7.7) k/uL Lymphocytes # (1.0-4.8) k/uL ABG pO2 (83-108) mmHg ABG HCO3 (21-25) mmol/L ABG Total CO2 (19-24) mmol/L ABG O2 Saturation (94-97) % ABG Hematocrit (34.0-46.0) % ABG Sodium (135-146) mmol/L ABG Potassium (3.4-4.5) mmol/L ABG Ionized Calcium (4.5-5.3) mg/dL ABG Glucose (75-99) mg/dL Hemoglobin (13.0-17.5) gm/dL Sodium (137-145) mmol/L BUN (9-20) mg/dL Glucose (74-99) mg/dL POC Glucose (mg/dL) 142 H 133 H 127 H (70-110) mg/dL Magnesium (1.6-2.3) mg/dL AST (17-59) U/L Total Protein (6.3-8.2) g/dL Albumin (3.5-5.0) g/dL Arterial Blood Potassium (3.4-4.5) mmol/L Arterial Blood Glucose (75-99) mg/dL Crossmatch 01/23/22 01/23/22 01/23/22 Range/Units 04:16 05:08 05:08 WBC (3.8-10.6) k/uL RBC 3.37 L (4.30-5.90) m/uL Hgb 10.7 L (13.0-17.5) gm/dL Hct 33.1 L (39.0-53.0) % Neutrophils # 8.1 H (1.3-7.7) k/uL Lymphocytes # (1.0-4.8) k/uL ABG pO2 (83-108) mmHg ABG HCO3 (21-25) mmol/L ABG Total CO2 (19-24) mmol/L ABG O2 Saturation (94-97) % ABG Hematocrit (34.0-46.0) % ABG Sodium (135-146) mmol/L ABG Potassium (3.4-4.5) mmol/L ABG Ionized Calcium (4.5-5.3) mg/dL ABG Glucose (75-99) mg/dL Hemoglobin (13.0-17.5) gm/dL Sodium 135 L (137-145) mmol/L BUN 24 H (9-20) mg/dL Glucose 124 H (74-99) mg/dL POC Glucose (mg/dL) 128 H (70-110) mg/dL Magnesium (1.6-2.3) mg/dL AST (17-59) U/L Total Protein 5.5 L (6.3-8.2) g/dL Albumin (3.5-5.0) g/dL Arterial Blood Potassium (3.4-4.5) mmol/L Arterial Blood Glucose (75-99) mg/dL Crossmatch 01/23/22 01/23/22 01/23/22 Range/Units 05:12 06:47 08:10 WBC (3.8-10.6) k/uL RBC (4.30-5.90) m/uL Hgb (13.0-17.5) gm/dL Hct (39.0-53.0) % Neutrophils # (1.3-7.7) k/uL Lymphocytes # (1.0-4.8) k/uL ABG pO2 (83-108) mmHg ABG HCO3 (21-25) mmol/L ABG Total CO2 (19-24) mmol/L ABG O2 Saturation (94-97) % ABG Hematocrit (34.0-46.0) % ABG Sodium (135-146) mmol/L ABG Potassium (3.4-4.5) mmol/L ABG Ionized Calcium (4.5-5.3) mg/dL ABG Glucose (75-99) mg/dL Hemoglobin (13.0-17.5) gm/dL Sodium (137-145) mmol/L BUN (9-20) mg/dL Glucose (74-99) mg/dL POC Glucose (mg/dL) 140 H 145 H 196 H (70-110) mg/dL Magnesium (1.6-2.3) mg/dL AST (17-59) U/L Total Protein (6.3-8.2) g/dL Albumin (3.5-5.0) g/dL Arterial Blood Potassium (3.4-4.5) mmol/L Arterial Blood Glucose (75-99) mg/dL Crossmatch 01/23/22 Range/Units 10:03 WBC (3.8-10.6) k/uL RBC (4.30-5.90) m/uL Hgb (13.0-17.5) gm/dL Hct (39.0-53.0) % Neutrophils # (1.3-7.7) k/uL Lymphocytes # (1.0-4.8) k/uL ABG pO2 (83-108) mmHg ABG HCO3 (21-25) mmol/L ABG Total CO2 (19-24) mmol/L ABG O2 Saturation (94-97) % ABG Hematocrit (34.0-46.0) % ABG Sodium (135-146) mmol/L ABG Potassium (3.4-4.5) mmol/L ABG Ionized Calcium (4.5-5.3) mg/dL ABG Glucose (75-99) mg/dL Hemoglobin (13.0-17.5) gm/dL Sodium (137-145) mmol/L BUN (9-20) mg/dL Glucose (74-99) mg/dL POC Glucose (mg/dL) 154 H (70-110) mg/dL Magnesium (1.6-2.3) mg/dL AST (17-59) U/L Total Protein (6.3-8.2) g/dL Albumin (3.5-5.0) g/dL Arterial Blood Potassium (3.4-4.5) mmol/L Arterial Blood Glucose (75-99) mg/dL Crossmatch Assessment and Plan Plan: Chest pain Non-ST elevation myocardial infarction Continue aspirin, plavix, statin, metoprolol. 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 Per cardio. Hypothyroidism TSH within therapeutic range Continue levothyroxine. Hyperlipidemia Resume meds Hyperglycemia, no hx of DM A1c 5.7 Currently on insulin gtt. Switch to s.q tomorrow
[2022-01-23 11:31] LABS: Glucose,Whole Blood 133 mg/dL (70-110)
[2022-01-23 13:30] LABS: Glucose,Whole Blood 132 mg/dL (70-110)
[2022-01-23] MEDS: NITROGLYCERIN-D5W PMX 50 MG in DEXTROSE/WATER 1 250ML.BAG IV SCH (15:30)
[2022-01-23 15:47] LABS: Glucose,Whole Blood 169 mg/dL (70-110)
[2022-01-23 19:00] LABS: Glucose,Whole Blood 142 mg/dL (70-110)
[2022-01-23] MEDS: DEXTROSE 5% IN WATER 100 ML with AMIODARONE 150 MG IV PRN ×3 (19:51→23:42)
[2022-01-23 20:09] LABS: Glucose,Whole Blood 188 mg/dL (70-110)
[2022-01-23] MEDS: SENNOSIDES-DOCUSATE SODIUM 1 EACH TAB PO SCH (20:15)
[2022-01-23 21:53] LABS: Glucose,Whole Blood 170 mg/dL (70-110)
[2022-01-23 23:21] LABS: Glucose,Whole Blood 152 mg/dL (70-110)
[2022-01-24 00:32] LABS: Glucose,Whole Blood 144 mg/dL (70-110)
[2022-01-24] MEDS: DEXTROSE 5% IN WATER 100 ML with AMIODARONE 150 MG IV PRN (02:15)
[2022-01-24 02:21] LABS: Glucose,Whole Blood 162 mg/dL (70-110)
[2022-01-24 04:08] LABS: Glucose,Whole Blood 139 mg/dL (70-110)
[2022-01-24 04:25] LABS: Basophils % (A) 0 %; Eosinophils # (A) 0.1 k/uL (0-0.7); Eosinophils % (A) 0 %; HCT 30.9 % (39.0-53.0); HGB 10.3 gm/dL (13.0-17.5); Lymphocytes # (A) 1.3 k/uL (1.0-4.8); Lymphocytes % (A) 9 %; MCH 32.7 pg (25.0-35.0); MCHC 33.4 g/dL (31.0-37.0); MCV 97.7 fL (80.0-100.0); Mean Platelet Volume 8.3; Monocytes # (A) 0.7 k/uL (0-1.0); Monocytes % (A) 5 %; Neutrophils # (A) 11.6 k/uL (1.3-7.7); Neutrophils % (A) 84 %; Platelet Count 226 k/uL (150-450); RBC 3.16 m/uL (4.30-5.90); RDW 12.2 % (11.5-15.5); WBC 13.9 k/uL (3.8-10.6)
[2022-01-24 05:11] LABS: Ionized Calcium 4.9 mg/dL (4.5-5.3)
[2022-01-24 05:19] LABS: ALT 19 U/L (4-49); AST 34 U/L (17-59); African American GFR (CKD) >90 (>60 ml/min/1.73 sqM); Albumin 3.1 g/dL (3.5-5.0); Alkaline Phosphatase 54 U/L (38-126); Anion Gap 9 mmol/L; Blood Urea Nitrogen 26 mg/dL (9-20); Calcium 8.6 mg/dL (8.4-10.2); Carbon Dioxide 22 mmol/L (22-30); Chloride 100 mmol/L (98-107); Glucose 119 mg/dL (74-99); Non-African American GFR(CKD) 83 (>60 ml/min/1.73 sqM); Potassium 3.7 mmol/L (3.5-5.1); Sodium 131 mmol/L (137-145); Total Bilirubin 0.6 mg/dL (0.2-1.3); Total Protein 5.3 g/dL (6.3-8.2)
[2022-01-24 05:22] LABS: Glucose,Whole Blood 123 mg/dL (70-110)
[2022-01-24] MEDS ORDERED: POTASSIUM CHLORIDE ER 20 MEQ TAB.ER PO SCH (06:00)
[2022-01-24] MEDS: KETOROLAC 15 MG/ML 1 ML VIAL IVP SCH ×3 (07:01→17:24)
[2022-01-24 07:10] LABS: Glucose,Whole Blood 155 mg/dL (70-110)
--- NOTE | 2022-01-24 07:59 | XR ---
EXAMINATION TYPE: XR chest 1V portable DATE OF EXAM: 01/24/2022 COMPARISON: Chest x-ray 01/23/2022 HISTORY: Postop cardiac surgery TECHNIQUE: Single frontal view of the chest is obtained. FINDINGS: Right jugular central venous sheath remains in place, central venous catheter has been rem gume. Patient is post median sternotomy and left atrial appendage clip placement. There are overlying artifacts, lung volumes are low. Cardiac mediastinal silhouette is prominent and shows a similar lucian earance. Aorta is dense. No pneumothorax or sizable effusion is evident. Patchy basilar density, prom inence of the interstitium, increased central vascularity are all again noted. IMPRESSION: Expiratory exam, difficult to exclude pulmonary venous hypertension and interstitial joselyn ma. Possible basilar atelectasis, pneumonia not excluded.
[2022-01-24] MEDS ORDERED: POTASSIUM CHLORIDE ER 10 MEQ TAB.ER.PRT PO STA (08:42)
[2022-01-24] MEDS ORDERED: FUROSEMIDE 10 MG/ML 2 ML VIAL IV STA (08:42)
[2022-01-24] MEDS ORDERED: DEXTROSE 5% IN WATER 100 ML with AMIODARONE 150 MG IV ONE (08:43)
[2022-01-24] MEDS: IPRATROPIUM-ALBUTEROL 3 ML NEB INHALATION SCH ×4 (08:48→19:59)
[2022-01-24] MEDS: TAMSULOSIN 0.4 MG CAP.ER.24H PO SCH (08:48)
[2022-01-24] MEDS: PANTOPRAZOLE 40 MG TABLET PO SCH (08:48)
[2022-01-24] MEDS: CLOPIDOGREL 75 MG TAB PO SCH (08:48)
[2022-01-24] MEDS: MULTIVITAMINS, THERA 1 EACH TAB PO SCH (08:48)
[2022-01-24] MEDS: ASPIRIN 325 MG TAB PO SCH (08:48)
[2022-01-24] MEDS: AMIODARONE 200 MG TAB PO SCH ×2 (08:49→21:11)
[2022-01-24] MEDS: ATORVASTATIN 40 MG TAB PO SCH (08:49)
[2022-01-24] MEDS: LEVOTHYROXINE 137 MCG TAB PO SCH (08:49)
[2022-01-24] MEDS: METOPROLOL TARTRATE 25 MG TAB PO SCH ×2 (08:49→21:18)
[2022-01-24] MEDS: THIAMINE 100 MG TAB PO SCH ×2 (08:49→17:23)
[2022-01-24] MEDS: ENOXAPARIN 40 MG/0.4 ML SYRINGE SQ SCH (08:50)
[2022-01-24 09:01] LABS: Glucose,Whole Blood 180 mg/dL (70-110)
--- NOTE | 2022-01-24 09:18 | P.PN ---
Subjective Progress Note Date: 01/24/22 Principal diagnosis: Severe triple-vessel coronary artery disease, non-ST elevated myocardial infarction this admission, and mild to moderate left ventricular dysfunction. Past medical history significant for coronary artery disease with remote history of PCI with stent placement to his left anterior descending coronary artery and circumflex coronary artery, hyperlipidemia, thyroid disorder, remote history of nicotine dependence, daily EtOH drinks 1 beer daily and a family history of early onset coronary artery disease with his dad passing away from a myocardial infarction at age 55. POD #2 triple-vessel coronary artery bypass grafting using the left internal mammary artery to left anterior setting coronary artery, a reverse greater saphenous vein graft from the aorta to the posterior descending coronary artery, a reverse greater saphenous vein graft from the aorta to the obtuse marginal coronary artery. Exclusion of the left atrial appendage using a 35 mm Atriclip, endoscopic harvesting of the left greater saphenous vein, intraoperative graft flow measurement using the Asokastim system and intraoperative transesophageal echocardiogram and epi-aortic scanning. Postoperative acute blood loss anemia, expected given hemodilution and cardiopulmonary bypass. Postoperative paroxysmal atrial fibrillation, a known common occurrence after cardiac surgery. The patient was seen and examined at his bedside today 01/24/2022 in the intensive care unit. He denies any complaints of shortness of breath or pain at this time, although he reports that he was feeling slightly woozy this morning with ambulating in the intensive care unit hallway with assistance from nursing staff. Currently sitting up to the bedside chair, is awake, alert, oriented 3 and is in no acute distress. Oxygen saturation are 97% on room air and he is achieving 1000 mL on his incentive spirometry with encouragement. Bedside telemetry showing atrial fibrillation heart rate 93 BPM and he is currently on amiodarone drip per protocol at 0.5 mg/m. Laboratory results morning show a WBC count of 13.9, hemoglobin 10.3, hematocrit 30.9, platelets 226, sodium 131, potassium 3.7, BUN 26, creatinine 0.86, glucose 119, calcium 8.6, and ionized calcium 4.9. He has been afebrile the last 24 hours. Atrial epicardial pacemaker wires remain in place and grounded. Mediastinal and right pleural Finn chest tubes were removed yesterday without incident. Left pleural chest tube remains in place to low continuous wall suction -20 cm H2O. No air leak is present. Draining thin serosanguineous drainage with 140 mL output in the last 8 hours 340 mL output in the last 24 hours. Right IJ cordis remains in place with continuous CVP monitoring, current CVP pressure is 7 mmHg. Objective - Vital Signs Vital signs: Vital Signs Temp 98.0 F 01/24/22 04:00 Pulse 84 01/24/22 06:00 Resp 23 01/24/22 06:00 BP 103/73 01/24/22 06:00 Pulse Ox 99 01/24/22 06:00 FiO2 45 01/22/22 21:25 Intake & Output 01/23/22 01/24/22 01/24/22 18:59 06:59 18:59 Intake Total 915.974 659.746 47.926 Output Total 800 470 Balance 115.974 189.746 47.926 Weight 95 kg 96.9 kg Intake: IV 619.5 634 47 Amiodarone 360 mg In 198 Dextrose 5% in Water 200 ml @ 1 MG/MIN 34.533 mls/ hr IV .Q6H PRN Rx#: [id number] Amiodarone 450 mg In 64 16 Dextrose 5% in Water 250 ml @ 0.5 MG/MIN 16.667 mls/hr IV .Q15H PRN Rx#: [id number] CO/CI 40 Calcium Gluconate in NaCl 100 1 gm In Saline 1 100ml. bag @ 100 mls/hr IVPB ONCE ONE Rx#:[id number] Nitroglycerin-D5w Pmx 50 1.5 mg In Dextrose/Water 1 250ml.bag @ 5 MCG/MIN 1.5 mls/hr IV .Q24H [facility] Rx#: [id number] Pressure Bags 78 72 6 Sodium Chloride 0.9% 1, 350 300 25 000 ml @ 50 mls/hr IV . Q20H [facility] Rx#:[id number] ceFAZolin 2 gm In Sodium 50 Chloride 0.9% 50 ml @ 100 mls/hr IVPB ONCE ONE Rx# :[id number] Intake, IV Titration 46.474 25.746 0.926 Amount Insulin Regular 100 unit 20.899 25.746 0.926 In Sodium Chloride 0.9% 100 ml @ Per Protocol IV .Q0M [facility] Rx#:[id number] Nitroglycerin-D5w Pmx 50 25.575 mg In Dextrose/Water 1 250ml.bag @ 5 MCG/MIN 1.5 mls/hr IV .Q24H [facility] Rx#: [id number] Oral 250 Output: Chest Tube Drainage 350 170 L Pleural 210 170 Mediastinal 20 R Pleural 120 Urine 450 300 Other: Voiding Method Urinal Urinal ABP, PAP, CO, CI - Last Documented Arterial Blood Pressure 115/56 Pulmonary Artery Pressure 21/9 Cardiac Output 4.7 Cardiac Index 2.2 - Exam CONSTITUTIONAL: Sitting up to the bedside chair in the intensive care unit, lucian ears comfortable, cooperative, no apparent acute distress. HEENT: Neck is supple, no JVD, no lymphadenopathy. Right IJ Cordis in place and functioning. RESPIRATORY: Lungs sounds essentially clear throughout, diminished to his bilateral bases. Respirations are symmetrical and nonlabored. Currently on room air with oxygen saturations 97%. Able to achieve 1000 mL on his incentive spirometry. Strong cough. CARDIOVASCULAR: Regular rhythm and rate. S1 and S2 present, negative for S3, gallop or murmur. Sternum is stable. Palpable peripheral pulses bilaterally, trace edema to his bilateral lower extremities. No calf pain or tenderness noted. Heart hugger in place with patient demonstrating appropriate use. Knee- high MARICHUY hose and sequential compression devices in place to his bilateral lower extremities. Bedside telemetry showing atrial fibrillation heart rate 93 BPM. GASTROINTESTINAL: Abdomen soft, nontender, nondistended. Active bowel sounds present 4 quadrants. Tolerating diet. Passing flatus. No guarding or rigidity. GENITOURINARY: Continues to void. Urine output 150 mL in the last 8 hours INTEGUMENTARY: Skin is warm and dry with no evidence of clubbing or cyanosis. Midline sternal incision clean dry and well approximated, covered with dry intact dressing. Left lower extremity EVH site well approximated without redness or drainage. NEUROLOGIC: Cranial nerves II through XII intact. No focal deficits. MUSKULOSKELETAL: Able to move all extremities, strength equal bilaterally. PSYCHIATRIC: Alert and oriented to person place and time, appropriate affect, intact judgment and insight. INVASIVE LINES AND TUBES: Left pleural Finn chest tube present and connected to low continuous wall suction, no air leak present. Left pleural chest tube with 140 mL of thin serosanguineous drainage overnight, 340 mL output in the last 24 hours. Atrial epicardial pacemaker wires present, and grounded. Right internal jugular Cordis, and right radial arterial line present. Current CVP pressure 7 mmHg. Left lower extremity FAWAD drain in place with scant thin serosa nguineous drainage with less than 5 mL output in the last 24 hours. - Allied health notes Allied health notes reviewed: nursing - Labs CBC & Chem 7: 01/24/22 04:05 01/24/22 04:05 Labs: Abnormal Lab Results - Last 24 Hours (Table) 01/23/22 01/23/22 01/23/22 Range/Units 08:10 10:03 11:30 WBC (3.8-10.6) k/uL RBC (4.30-5.90) m/uL Hgb (13.0-17.5) gm/dL Hct (39.0-53.0) % Neutrophils # (1.3-7.7) k/uL Sodium (137-145) mmol/L BUN (9-20) mg/dL Glucose (74-99) mg/dL POC Glucose (mg/dL) 196 H 154 H 133 H (70-110) mg/dL Total Protein (6.3-8.2) g/dL Albumin (3.5-5.0) g/dL 01/23/22 01/23/22 01/23/22 Range/Units 13:28 15:45 18:49 WBC (3.8-10.6) k/uL RBC (4.30-5.90) m/uL Hgb (13.0-17.5) gm/dL Hct (39.0-53.0) % Neutrophils # (1.3-7.7) k/uL Sodium (137-145) mmol/L BUN (9-20) mg/dL Glucose (74-99) mg/dL POC Glucose (mg/dL) 132 H 169 H 142 H (70-110) mg/dL Total Protein (6.3-8.2) g/dL Albumin (3.5-5.0) g/dL 01/23/22 01/23/22 01/23/22 Range/Units 20:08 21:52 23:20 WBC (3.8-10.6) k/uL RBC (4.30-5.90) m/uL Hgb (13.0-17.5) gm/dL Hct (39.0-53.0) % Neutrophils # (1.3-7.7) k/uL Sodium (137-145) mmol/L BUN (9-20) mg/dL Glucose (74-99) mg/dL POC Glucose (mg/dL) 188 H 170 H 152 H (70-110) mg/dL Total Protein (6.3-8.2) g/dL Albumin (3.5-5.0) g/dL 01/24/22 01/24/22 01/24/22 Range/Units 00:30 02:19 04:05 WBC 13.9 H (3.8-10.6) k/uL RBC 3.16 L (4.30-5.90) m/uL Hgb 10.3 L (13.0-17.5) gm/dL Hct 30.9 L (39.0-53.0) % Neutrophils # 11.6 H (1.3-7.7) k/uL Sodium (137-145) mmol/L BUN (9-20) mg/dL Glucose (74-99) mg/dL POC Glucose (mg/dL) 144 H 162 H (70-110) mg/dL Total Protein (6.3-8.2) g/dL Albumin (3.5-5.0) g/dL 01/24/22 01/24/22 01/24/22 Range/Units 04:05 04:07 05:20 WBC (3.8-10.6) k/uL RBC (4.30-5.90) m/uL Hgb (13.0-17.5) gm/dL Hct (39.0-53.0) % Neutrophils # (1.3-7.7) k/uL Sodium 131 L (137-145) mmol/L BUN 26 H (9-20) mg/dL Glucose 119 H (74-99) mg/dL POC Glucose (mg/dL) 139 H 123 H (70-110) mg/dL Total Protein 5.3 L (6.3-8.2) g/dL Albumin 3.1 L (3.5-5.0) g/dL 01/24/22 Range/Units 07:08 WBC (3.8-10.6) k/uL RBC (4.30-5.90) m/uL Hgb (13.0-17.5) gm/dL Hct (39.0-53.0) % Neutrophils # (1.3-7.7) k/uL Sodium (137-145) mmol/L BUN (9-20) mg/dL Glucose (74-99) mg/dL POC Glucose (mg/dL) 155 H (70-110) mg/dL Total Protein (6.3-8.2) g/dL Albumin (3.5-5.0) g/dL - Imaging and Cardiology Chest x-ray: report reviewed, image reviewed Assessment and Plan Assessment: 1. Multivessel coronary artery disease, status post three-vessel coronary artery bypass grafting surgery 2. Non-ST elevated myocardial infarction this admission 3. History of coronary artery disease with remote history of PCI to his LAD and circumflex coronary artery 4. 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 Ischemic cardiomyopathy with an ejection fraction of 40-45% 6. Hyperlipidemia 7. Thyroid disorder 8. Remote history of nicotine dependence 9. Daily EtOH use, drinks 1 beer daily 10. Family history of early onset coronary artery disease with his dad from a myocardial infarction at age 55 11. Postoperative acute blood loss anemia, expected given hemodilution and cardiopulmonary bypass 12. Postoperative paroxysmal atrial fibrillation, a known common occurrence after cardiac surgery Plan: 1. Continue to maximize medical therapy with aspirin, statin, Plavix, beta shantel. Will increase metoprolol tartrate to 25 mg by mouth twice a day. 2. Wean O2 as tolerated. Encourage incentive spirometry use 10 times every hour while awake. Bronchodilators per pulmonology/critical care medicine. 3. Increase activity, ambulate as tolerated. PT/OT/cardiac rehab following. 4. Will monitor daily labs and x-rays. Electrolyte replacement per protocol. 5. GI/DVT prophylaxis. 6. Insulin management per internal medicine, patient is a nondiabetic with a preoperative hemoglobin A1c of 5.7%. 7. Pain control with current medication regimen. 8. Discontinue right IJ Cordis. 9. We will remove his left pleural Finn chest tube today. 10. Continue to record strict accurate intake and output. Daily weights. Me bladder scan every 6 hours and when necessary postvoid residual. If greater than 300 mL of urine please straight cath. Flomax 0.4 mg by mouth daily started. 11. Lasix 20 mg IV 1 now and potassium chloride 10 mEq by mouth 1 now. 12. Continue amiodarone drip until current bag has infused for atrial fibrillation prophylaxis. We will start amiodarone 400 mg by mouth twice a day and give amiodarone 150 mg IV piggyback 1 now. 13. Keep atrial epicardial pacemaker wires in place and connected to bedside backup pacemaker generator on a AAI 50. 14. Remove left leg FAWAD drain. 15. Remove right radial A-line. 16. More recommendations to follow based on patient's clinical course. Time with Patient: Greater than 30
[2022-01-24] MEDS: HYDROcodone/APAP 5-325MG 1 EACH TAB PO PRN (09:20)
--- NOTE | 2022-01-24 10:22 | P.PN ---
Subjective Progress Note Date: 01/24/22 Principal diagnosis: Chest pain. Pulmonary consult dated 01/20/2022. A 81-year-old male who presented to the emergency department on January 18, complaining of chest pain. Chest pain had been going on for about a week or so and was exertional in nature. More recently, he had constant nonexertional chest pain for 4 hours before admission to the emergency department. He also was having some diaphoresis. There is no vomiting or abdominal pain. The patient was seen in the emergency room, admitted to the hospital with acute coronary syndrome. The pain did radiate up into his jaw and neck. This patient has a history of hyperlipidemia. The patient also smoked for about 15-18 years many years ago. 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 We were asked to see this patient, because he is apparently going to have bypass grafting on Thursday of this week. It appears that he doesn't have any significant lung disease. He denies any shortness of breath. He does not take any breathing medications at home. We have not yet seen his PFTs. White count 14.8, normal hemoglobin, hematocrit, and platelet count. PTT is 33. Sodium 134, potassium 4.3, chlorides 102, CO2 25, BUN 16, creatinine 0.9. Troponin was 200, subsequent troponin was 79.5. Chest x-ray was normal. Progress note dated 01/21/2022. This is a 81-year-old male who came to the emergency department with chest pain. Catheterization revealed significant coronary disease, and he is scheduled for bypass grafting tomorrow. He had lung function done at the bedside, showing an FEV1 that was 83% of predicted. He did smoke in the distant past. He denies any respiratory issues. Currently, the patient's getting saline IV, and IV heparin. He is therapeutic. White count 10.4, hemoglobin 13.9, hematocrit 42.8, and platelet count 244,000. No additional labs to note. Progress note dated 01/22/2022. 81-year-old male to undergo bypass grafting today. The patient will eventually end up back in the intensive care unit, where we will attempt to get him extubated as soon as possible. The patient's lung function was excellent. He should do well with surgery. No new labs this morning other than a glucose of 111. Progress note dated 01/23/2022. 81-year-old male postop day #1, status post three-vessel bypass grafting. The surgery was done by Dr. Valadez. The patient was extubated in timely fashion. He's currently on 3 L nasal cannula. He is getting saline at 20 mL an hour, and an insulin drip at 3.5 units an hour. White count 9.7, hemoglobin 10.7, hematocrit 33.1, and platelet count 215,000. Sodium 135, potassium 4.4, chlorides 102, CO2 22, BUN 24, creatinine 0.8. Chest x-ray shows removal of endotracheal tube, and some bibasilar atelectasis, and small effusion. Clinically, the patient appears to be doing relatively well. He is up in a chair. Other than pain at the surgical site, he has no major complaints. Progress note dated 01/24/2022. 81-year-old male, postop day #2, status post three-vessel bypass grafting. Currently, the patient's on room air. He is getting amiodarone 0.5 mg/m, saline at 75 mL an hour, and an insulin drip at 1.5 units an hour. He developed atrial fibrillation last night at about 7 PM. He is resting comfortably, room 264, in the intensive care unit. He continues to use his incentive spirometer, every hour. White count 13.9, hemoglobin 10.3, hematocrit 30.9, with a normal platelet count. Sodium 131, potassium 3.7, chlorides 100, CO2 22, BUN 26, and creatinine 0.86. Chest x-ray shows some post-surgical changes, and some very mild interstitial edema. Objective - Vital Signs Vital signs: Vital Signs Temp 98.3 F 01/24/22 08:00 Pulse 80 01/24/22 09:00 Resp 24 01/24/22 09:00 BP 99/61 01/24/22 09:00 Pulse Ox 99 01/24/22 09:00 FiO2 45 01/22/22 21:25 Intake & Output 01/23/22 01/24/22 01/24/22 18:59 06:59 18:59 Intake Total 915.974 659.746 109.926 Output Total 800 470 20 Balance 115.974 189.746 89.926 Weight 95 kg 96.9 kg Intake: IV 619.5 634 109 Amiodarone 360 mg In 198 Dextrose 5% in Water 200 ml @ 1 MG/MIN 34.533 mls/ hr IV .Q6H [facility] Rx#: [id number] Amiodarone 450 mg In 64 16 Dextrose 5% in Water 250 ml @ 0.5 MG/MIN 16.667 mls/hr IV .Q15H [facility] Rx#: [id number] CO/CI 40 Calcium Gluconate in NaCl 100 1 gm In Saline 1 100ml. bag @ 100 mls/hr IVPB ONCE ONE Rx#:[id number] Nitroglycerin-D5w Pmx 50 1.5 mg In Dextrose/Water 1 250ml.bag @ 5 MCG/MIN 1.5 mls/hr IV .Q24H [facility] Rx#: [id number] Pressure Bags 78 72 18 Sodium Chloride 0.9% 1, 350 300 75 000 ml @ 50 mls/hr IV . Q20H [facility] Rx#:[id number] ceFAZolin 2 gm In Sodium 50 Chloride 0.9% 50 ml @ 100 mls/hr IVPB ONCE ONE Rx# :[id number] Intake, IV Titration 46.474 25.746 0.926 Amount Insulin Regular 100 unit 20.899 25.746 0.926 In Sodium Chloride 0.9% 100 ml @ Per Protocol IV .Q0M [facility] Rx#:[id number] Nitroglycerin-D5w Pmx 50 25.575 mg In Dextrose/Water 1 250ml.bag @ 5 MCG/MIN 1.5 mls/hr IV .Q24H [facility] Rx#: [id number] Oral 250 Output: Chest Tube Drainage 350 170 20 L Pleural 210 170 20 Mediastinal 20 R Pleural 120 Urine 450 300 Other: Voiding Method Urinal Urinal ABP, PAP, CO, CI - Last Documented Arterial Blood Pressure 113/51 Pulmonary Artery Pressure 21/9 Cardiac Output 4.7 Cardiac Index 2.2 - Exam No acute distress, oriented 3. Room air saturation is 99%. HEENT examination is grossly unremarkable. Neck supple. Full range of motion. No adenopathy thyromegaly or neck vein distention. Cardiovascular examination reveals regular rhythm rate. S1-S2 normal. No S3 or S4. No discernible murmur noted. Heart rate 80 bpm. Lungs reveal mostly clear breath sounds. Breath sounds are equal bilaterally. No wheezes or crackles. Scattered mild rhonchi are noted. Saturations are 99%. Abdomen soft bowel sounds are heard. No masses or tenderness. Extremities are intact. No cyanosis clubbing or edema. Skin is without rash or lesion. Neurologic examination is brief but nonfocal. - Labs CBC & Chem 7: 01/24/22 04:05 01/24/22 04:05 Labs: Abnormal Lab Results - Last 24 Hours (Table) 01/23/22 01/23/22 01/23/22 Range/Units 11:30 13:28 15:45 WBC (3.8-10.6) k/uL RBC (4.30-5.90) m/uL Hgb (13.0-17.5) gm/dL Hct (39.0-53.0) % Neutrophils # (1.3-7.7) k/uL Sodium (137-145) mmol/L BUN (9-20) mg/dL Glucose (74-99) mg/dL POC Glucose (mg/dL) 133 H 132 H 169 H (70-110) mg/dL Total Protein (6.3-8.2) g/dL Albumin (3.5-5.0) g/dL 01/23/22 01/23/22 01/23/22 Range/Units 18:49 20:08 21:52 WBC (3.8-10.6) k/uL RBC (4.30-5.90) m/uL Hgb (13.0-17.5) gm/dL Hct (39.0-53.0) % Neutrophils # (1.3-7.7) k/uL Sodium (137-145) mmol/L BUN (9-20) mg/dL Glucose (74-99) mg/dL POC Glucose (mg/dL) 142 H 188 H 170 H (70-110) mg/dL Total Protein (6.3-8.2) g/dL Albumin (3.5-5.0) g/dL 01/23/22 01/24/22 01/24/22 Range/Units 23:20 00:30 02:19 WBC (3.8-10.6) k/uL RBC (4.30-5.90) m/uL Hgb (13.0-17.5) gm/dL Hct (39.0-53.0) % Neutrophils # (1.3-7.7) k/uL Sodium (137-145) mmol/L BUN (9-20) mg/dL Glucose (74-99) mg/dL POC Glucose (mg/dL) 152 H 144 H 162 H (70-110) mg/dL Total Protein (6.3-8.2) g/dL Albumin (3.5-5.0) g/dL 01/24/22 01/24/22 01/24/22 Range/Units 04:05 04:05 04:07 WBC 13.9 H (3.8-10.6) k/uL RBC 3.16 L (4.30-5.90) m/uL Hgb 10.3 L (13.0-17.5) gm/dL Hct 30.9 L (39.0-53.0) % Neutrophils # 11.6 H (1.3-7.7) k/uL Sodium 131 L (137-145) mmol/L BUN 26 H (9-20) mg/dL Glucose 119 H (74-99) mg/dL POC Glucose (mg/dL) 139 H (70-110) mg/dL Total Protein 5.3 L (6.3-8.2) g/dL Albumin 3.1 L (3.5-5.0) g/dL 01/24/22 01/24/22 01/24/22 Range/Units 05:20 07:08 08:59 WBC (3.8-10.6) k/uL RBC (4.30-5.90) m/uL Hgb (13.0-17.5) gm/dL Hct (39.0-53.0) % Neutrophils # (1.3-7.7) k/uL Sodium (137-145) mmol/L BUN (9-20) mg/dL Glucose (74-99) mg/dL POC Glucose (mg/dL) 123 H 155 H 180 H (70-110) mg/dL Total Protein (6.3-8.2) g/dL Albumin (3.5-5.0) g/dL Assessment and Plan Assessment: Non-ST segment elevation myocardial infarction. Postop day #2, status post three-vessel bypass grafting. Routine postoperative ventilator management. CAD, with previous PCI, and stent placement. History of hyperlipidemia. No apparent chronic lung disease, with an FEV1 that is 83% of predicted. History of hypothyroidism. Previous history of tobacco use. Plan: Plan dated 01/20/2022. Today, we explained to the patient, our role in his care. I told him was to follow. Initially, we will work to get him off the mechanical ventilator. Subsequent to that, we'll see him on a daily basis, and keep his lungs healthy. We did talk about the importance of deep breathing, coughing, clearing of secretions, and hourly use of the incentive spirometer. Additional recommendations and suggestions are forthcoming. Prognosis is thought to be generally good. We have yet to see his spirometry. Chest x-ray, labs, and medications are reviewed. Plan dated 01/21/2022. The patient spirometry was read by my partner. FEV1 is well over 2 L, and 83% of predicted. The patient should do well from the pulmonary standpoint. We will continue to follow the patient and make recommendations along the way. We do encourage deep breathing, coughing, and clearing of secretions, as well as hourly use of the incentive spirometer. Plan dated 01/22/2022. The patient will be seen back in the ICU, once he gets back from the operating room. Additional recommendations and suggestions are forthcoming. We'll attemp t to get the patient extubated as soon as possible. Labs, x-rays, and medications are reviewed. We will continue to follow and make recommendations along the way. Plan dated 01/23/2022. The patient appears to be doing reasonably well. He remains on 3 L, and insulin drip at 3.5 units an hour. Hemodynamically, he stable. His respiratory status also appears to be stable. His labs, x-rays, and medications are reviewed. He is postop day #1. We encourage deep breathing, coughing, and clearing his secretions, as well as hourly use of the incentive spirometer. Additional recommendations and suggestions will be made. Prognosis is guarded. Plan dated 01/24/2022. Labs, x-rays, and medications are reviewed. The patient appears be doing well. His been weaned down to room air. Hemodynamically, he stable. We will continue to follow. Today's postop day #2. He did have a three-vessel bypass grafting. Labs, x-rays, and medications are reviewed. He continues to use his incentive spirometer, hourly. We do recommend deep breathing, coughing, and clearing of secretions as well. Time with Patient: Less than 30
--- NOTE | 2022-01-24 11:08 | P.PN ---
Subjective Patient is doing well. He is sitting comfortably in a chair No chest discomfort no dizziness lightheadedness no undue shortness of breath Breath sounds are reduced bilaterally with no rhonchi no crackles Heart sounds S1 and S2 are soft normal No lower extremity edema His blood pressures are 105 systolic ulcerated in the 80s sinus mechanism White count 14,000, hemoglobin 10.3 Sodium 131 potassium 3.7 Creatinine 0.9 Impression Non-Q wave myocardial infarction Severe triple-vessel coronary artery disease Status post coronary artery bypass grafting Doing well and progressing well postoperatively Suggest Continue current medications without any changes Continue antiplatelet therapy Continue beta blockers metoprolol 25 mg twice daily Continue statins Will follow Objective - Vital Signs Vital signs: Vital Signs Temp 98.3 F 01/24/22 08:00 Pulse 80 01/24/22 09:00 Resp 24 01/24/22 09:00 BP 99/61 01/24/22 09:00 Pulse Ox 99 01/24/22 09:00 FiO2 45 01/22/22 21:25 Intake & Output 01/23/22 01/24/22 01/24/22 18:59 06:59 18:59 Intake Total 915.974 659.746 109.926 Output Total 800 470 20 Balance 115.974 189.746 89.926 Weight 95 kg 96.9 kg Intake: IV 619.5 634 109 Amiodarone 360 mg In 198 Dextrose 5% in Water 200 ml @ 1 MG/MIN 34.533 mls/ hr IV .Q6H PRN Rx#: [id number] Amiodarone 450 mg In 64 16 Dextrose 5% in Water 250 ml @ 0.5 MG/MIN 16.667 mls/hr IV .Q15H PRN Rx#: [id number] CO/CI 40 Calcium Gluconate in NaCl 100 1 gm In Saline 1 100ml. bag @ 100 mls/hr IVPB ONCE ONE Rx#:[id number] Nitroglycerin-D5w Pmx 50 1.5 mg In Dextrose/Water 1 250ml.bag @ 5 MCG/MIN 1.5 mls/hr IV .Q24H [facility] Rx#: [id number] Pressure Bags 78 72 18 Sodium Chloride 0.9% 1, 350 300 75 000 ml @ 50 mls/hr IV . Q20H [facility] Rx#:[id number] ceFAZolin 2 gm In Sodium 50 Chloride 0.9% 50 ml @ 100 mls/hr IVPB ONCE ONE Rx# :[id number] Intake, IV Titration 46.474 25.746 0.926 Amount Insulin Regular 100 unit 20.899 25.746 0.926 In Sodium Chloride 0.9% 100 ml @ Per Protocol IV .Q0M [facility] Rx#:[id number] Nitroglycerin-D5w Pmx 50 25.575 mg In Dextrose/Water 1 250ml.bag @ 5 MCG/MIN 1.5 mls/hr IV .Q24H [facility] [place] Rx#: [id number] Oral 250 Output: Chest Tube Drainage 350 170 20 L Pleural 210 170 20 Mediastinal 20 R Pleural 120 Urine 450 300 Other: Voiding Method Urinal Urinal ABP, PAP, CO, CI - Last Documented Arterial Blood Pressure 113/51 Pulmonary Artery Pressure 21/9 Cardiac Output 4.7 Cardiac Index 2.2 - Labs CBC & Chem 7: 01/24/22 04:05 01/24/22 04:05 Labs: Abnormal Lab Results - Last 24 Hours (Table) 01/23/22 01/23/22 01/23/22 Range/Units 11:30 13:28 15:45 WBC (3.8-10.6) k/uL RBC (4.30-5.90) m/uL Hgb (13.0-17.5) gm/dL Hct (39.0-53.0) % Neutrophils # (1.3-7.7) k/uL Sodium (137-145) mmol/L BUN (9-20) mg/dL Glucose (74-99) mg/dL POC Glucose (mg/dL) 133 H 132 H 169 H (70-110) mg/dL Total Protein (6.3-8.2) g/dL Albumin (3.5-5.0) g/dL 01/23/22 01/23/22 01/23/22 Range/Units 18:49 20:08 21:52 WBC (3.8-10.6) k/uL RBC (4.30-5.90) m/uL Hgb (13.0-17.5) gm/dL Hct (39.0-53.0) % Neutrophils # (1.3-7.7) k/uL Sodium (137-145) mmol/L BUN (9-20) mg/dL Glucose (74-99) mg/dL POC Glucose (mg/dL) 142 H 188 H 170 H (70-110) mg/dL Total Protein (6.3-8.2) g/dL Albumin (3.5-5.0) g/dL 01/23/22 01/24/22 01/24/22 Range/Units 23:20 00:30 02:19 WBC (3.8-10.6) k/uL RBC (4.30-5.90) m/uL Hgb (13.0-17.5) gm/dL Hct (39.0-53.0) % Neutrophils # (1.3-7.7) k/uL Sodium (137-145) mmol/L BUN (9-20) mg/dL Glucose (74-99) mg/dL POC Glucose (mg/dL) 152 H 144 H 162 H (70-110) mg/dL Total Protein (6.3-8.2) g/dL Albumin (3.5-5.0) g/dL 01/24/22 01/24/22 01/24/22 Range/Units 04:05 04:05 04:07 WBC 13.9 H (3.8-10.6) k/uL RBC 3.16 L (4.30-5.90) m/uL Hgb 10.3 L (13.0-17.5) gm/dL Hct 30.9 L (39.0-53.0) % Neutrophils # 11.6 H (1.3-7.7) k/uL Sodium 131 L (137-145) mmol/L BUN 26 H (9-20) mg/dL Glucose 119 H (74-99) mg/dL POC Glucose (mg/dL) 139 H (70-110) mg/dL Total Protein 5.3 L (6.3-8.2) g/dL Albumin 3.1 L (3.5-5.0) g/dL 01/24/22 01/24/22 01/24/22 Range/Units 05:20 07:08 08:59 WBC (3.8-10.6) k/uL RBC (4.30-5.90) m/uL Hgb (13.0-17.5) gm/dL Hct (39.0-53.0) % Neutrophils # (1.3-7.7) k/uL Sodium (137-145) mmol/L BUN (9-20) mg/dL Glucose (74-99) mg/dL POC Glucose (mg/dL) 123 H 155 H 180 H (70-110) mg/dL Total Protein (6.3-8.2) g/dL Albumin (3.5-5.0) g/dL
[2022-01-24 13:18] LABS: Glucose,Whole Blood 155 mg/dL (70-110)
[2022-01-24] MEDS: INSULIN ASPART (NovoLOG) 100 UNIT/ML VIAL SQ SCH ×3 (13:37→21:06)
--- NOTE | 2022-01-24 13:53 | P.PN ---
Subjective Progress Note Date: 01/24/22 Principal diagnosis: Chest pain Doing well. No complaints currently. No chest pain except when he moves. No sob. No fevers. Objective - Vital Signs Vital signs: Vital Signs Temp 97.8 F 01/24/22 12:00 Pulse 71 01/24/22 13:00 Resp 26 H 01/24/22 13:00 BP 97/67 01/24/22 13:00 Pulse Ox 92 L 01/24/22 13:00 FiO2 45 01/22/22 21:25 Intake & Output 01/23/22 01/24/22 01/24/22 18:59 06:59 18:59 Intake Total 915.974 659.746 271.926 Output Total 800 470 200 Balance 115.974 189.746 71.926 Weight 95 kg 96.9 kg Intake: IV 619.5 634 121 Amiodarone 360 mg In 198 Dextrose 5% in Water 200 ml @ 1 MG/MIN 34.533 mls/ hr IV .Q6H [facility]N Rx#: [id number] Amiodarone 450 mg In 64 16 Dextrose 5% in Water 250 ml @ 0.5 MG/MIN 16.667 mls/hr IV .Q15H PRN Rx#: [id number] CO/CI 40 Calcium Gluconate in NaCl 100 1 gm In Saline 1 100ml. bag @ 100 mls/hr IVPB ONCE ONE Rx#:[id number] Nitroglycerin-D5w Pmx 50 1.5 mg In Dextrose/Water 1 250ml.bag @ 5 MCG/MIN 1.5 mls/hr IV .Q24H [facility] Rx#: [id number] Pressure Bags 78 72 30 Sodium Chloride 0.9% 1, 350 300 75 000 ml @ 50 mls/hr IV . Q20H [facility] Rx#:[id number] ceFAZolin 2 gm In Sodium 50 Chloride 0.9% 50 ml @ 100 mls/hr IVPB ONCE ONE Rx# :[id number] Intake, IV Titration 46.474 25.746 0.926 Amount Insulin Regular 100 unit 20.899 25.746 0.926 In Sodium Chloride 0.9% 100 ml @ Per Protocol IV .Q0M [facility] Rx#:[id number] Nitroglycerin-D5w Pmx 50 25.575 mg In Dextrose/Water 1 250ml.bag @ 5 MCG/MIN 1.5 mls/hr IV .Q24H [facility] Rx#: [id number] Oral 250 150 Output: Chest Tube Drainage 350 170 50 L Pleural 210 170 50 Mediastinal 20 R Pleural 120 Urine 450 300 150 Other: Voiding Method Urinal Urinal ABP, PAP, CO, CI - Last Documented Arterial Blood Pressure 113/51 Pulmonary Artery Pressure 21/9 Cardiac Output 4.7 Cardiac Index 2.2 - Exam Constitutional: No acute distress, conversant, pleasant Eyes:Anicteric sclerae, moist conjunctiva, no lid-lag, PERRLA, ENMT: Oropharynx clear, no erythema, exudates Neck: Supple, FROM, no masses, or JVD, No carotid bruits, No thyromegaly Lungs: Clear to auscultation, Clear to percussion, Normal respiratory effort, no accessory muscle use Cardiovascular: Heart regular in rate and rhythm, No murmurs, gallops, or rubs, No peripheral edema Abdominal: Soft, Nontender, no guarding, rebound or rigidity, Normoactive bowel sounds, No hepatomegaly, No splenomegaly, No palpable mass Skin: Normal temperature, tone, texture, turgor, no induration, No subcutaneous nodules, No rash, lesions, No ulcers Extremities: No digital cyanosis, No clubbing, Pedal pulses intact and symmetrical, Radial pulses intact and symmetrical, No calf tenderness Psychiatric: Alert and oriented to person, place and time, appropriate affect, intact judgement Neuro: Muscles Strength 5/5 in all 4 extremities, Sensation to light touch grossly present throughout, Cranial nerves II-XII grossly intact, no focal sensory deficits - Labs CBC & Chem 7: 01/24/22 04:05 01/24/22 04:05 Labs: Abnormal Lab Results - Last 24 Hours (Table) 01/23/22 01/23/22 01/23/22 Range/Units 15:45 18:49 20:08 WBC (3.8-10.6) k/uL RBC (4.30-5.90) m/uL Hgb (13.0-17.5) gm/dL Hct (39.0-53.0) % Neutrophils # (1.3-7.7) k/uL Sodium (137-145) mmol/L BUN (9-20) mg/dL Glucose (74-99) mg/dL POC Glucose (mg/dL) 169 H 142 H 188 H (70-110) mg/dL Total Protein (6.3-8.2) g/dL Albumin (3.5-5.0) g/dL 01/23/22 01/23/22 01/24/22 Range/Units 21:52 23:20 00:30 WBC (3.8-10.6) k/uL RBC (4.30-5.90) m/uL Hgb (13.0-17.5) gm/dL Hct (39.0-53.0) % Neutrophils # (1.3-7.7) k/uL Sodium (137-145) mmol/L BUN (9-20) mg/dL Glucose (74-99) mg/dL POC Glucose (mg/dL) 170 H 152 H 144 H (70-110) mg/dL Total Protein (6.3-8.2) g/dL Albumin (3.5-5.0) g/dL 01/24/22 01/24/22 01/24/22 Range/Units 02:19 04:05 04:05 WBC 13.9 H (3.8-10.6) k/uL RBC 3.16 L (4.30-5.90) m/uL Hgb 10.3 L (13.0-17.5) gm/dL Hct 30.9 L (39.0-53.0) % Neutrophils # 11.6 H (1.3-7.7) k/uL Sodium 131 L (137-145) mmol/L BUN 26 H (9-20) mg/dL Glucose 119 H (74-99) mg/dL POC Glucose (mg/dL) 162 H (70-110) mg/dL Total Protein 5.3 L (6.3-8.2) g/dL Albumin 3.1 L (3.5-5.0) g/dL 01/24/22 01/24/22 01/24/22 Range/Units 04:07 05:20 07:08 WBC (3.8-10.6) k/uL RBC (4.30-5.90) m/uL Hgb (13.0-17.5) gm/dL Hct (39.0-53.0) % Neutrophils # (1.3-7.7) k/uL Sodium (137-145) mmol/L BUN (9-20) mg/dL Glucose (74-99) mg/dL POC Glucose (mg/dL) 139 H 123 H 155 H (70-110) mg/dL Total Protein (6.3-8.2) g/dL Albumin (3.5-5.0) g/dL 01/24/22 01/24/22 Range/Units 08:59 13:16 WBC (3.8-10.6) k/uL RBC (4.30-5.90) m/uL Hgb (13.0-17.5) gm/dL Hct (39.0-53.0) % Neutrophils # (1.3-7.7) k/uL Sodium (137-145) mmol/L BUN (9-20) mg/dL Glucose (74-99) mg/dL POC Glucose (mg/dL) 180 H 155 H (70-110) mg/dL Total Protein (6.3-8.2) g/dL Albumin (3.5-5.0) g/dL Assessment and Plan Plan: Chest pain Non-ST elevation myocardial infarction Continue aspirin, plavix, statin, metoprolol. 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 Per cardio. Hypothyroidism TSH within therapeutic range Continue levothyroxine. Hyperlipidemia Resume meds Hyperglycemia, no hx of DM A1c 5.7 S.q insulin
[2022-01-24 17:33] LABS: Glucose,Whole Blood 187 mg/dL (70-110)
[2022-01-24 20:34] LABS: Glucose,Whole Blood 105 mg/dL (70-110)
[2022-01-24] MEDS: SENNOSIDES-DOCUSATE SODIUM 1 EACH TAB PO SCH (21:12)
[2022-01-25] MEDS: KETOROLAC 15 MG/ML 1 ML VIAL IVP SCH ×3 (01:04→12:46)
[2022-01-25] MEDS: THIAMINE 100 MG TAB PO SCH ×2 (06:33→17:09)
[2022-01-25] MEDS: PANTOPRAZOLE 40 MG TABLET PO SCH (06:33)
[2022-01-25 06:39] LABS: Glucose,Whole Blood 135 mg/dL (70-110)
[2022-01-25] MEDS: INSULIN ASPART (NovoLOG) 100 UNIT/ML VIAL SQ SCH ×4 (06:39→21:48)
[2022-01-25] MEDS: LEVOTHYROXINE 137 MCG TAB PO SCH (06:42)
--- NOTE | 2022-01-25 07:11 | XR ---
EXAMINATION TYPE: XR chest 2V DATE OF EXAM: 01/25/2022 6:25 AM COMPARISON: Chest radiograph from one day prior. TECHNIQUE: XR chest 2V Frontal and lateral views of the chest. CLINICAL INDICATION:Male, 81 years old with history of post op CABG; FINDINGS: Lungs/Pleura: There is no evidence of pleural effusion, focal consolidation, or pneumothorax. Pulmonary vascularity: Unremarkable. Heart/mediastinum: Cardiomediastinal silhouette is unremarkable. Left atrial appendage occlusion patricia ce is present. Musculoskeletal: No acute osseous pathology. Midline sternotomy wires are noted. tube with its distal tip and side-port projecting under the diaphragm. IMPRESSION: Similar expiratory exam difficult to exclude pulmonary venous hypertension and interstitial edema. Po ssible basilar atelectasis, pneumonia not excluded.
[2022-01-25] MEDS: IPRATROPIUM-ALBUTEROL 3 ML NEB INHALATION SCH ×4 (07:36→19:16)
[2022-01-25] MEDS ORDERED: ACETAMINOPHEN TAB 325 MG TAB PO PRN (07:55)
--- NOTE | 2022-01-25 08:57 | P.PN ---
Subjective Progress Note Date: 01/25/22 PROGRESS NOTE The patient is a 81-year-old male presented with non-STEMI, he has a prior history of PCI. He underwent cardiac catheterization and was found to have severe triple-vessel disease. He underwent CABG. He is doing well this morning, sitting up in the chair, in sinus mechanism. He is ambulating. He denies any chest discomfort, dizziness or palpitations. He is feeling stronger. He has no evidence of ventricular ectopic activity or atrial fibrillation. Medications: Aspirin once a day Plavix 75 mg daily, Lipitor 40 mg daily, metoprolol 25 mg twice a day PHYSICAL EXAMINATION: Blood pressure 115/70 heart rate 70 LUNGS: Mild decrease in the breath sounds at the bases HEART: [Regular rate and rhythm, S1, S2. No S3. systolic ejection murmur] ABDOMEN: [Soft, nontender, no organomegaly] EXTREMETIES: [Trace to 1+ edema] LAB: BUN 26 and creatinine 0.86 yesterday IMPRESSION: 1. Status post CABG, stable 2. Non-STEMI on presentation 3. History of PCI 4. Hyperlipidemia PLAN: 1. Continue present therapy 2. Increase physical activity 3. Continues incentive spirometry 4. Probable discharge in 48 hours Objective - Vital Signs Vital signs: Vital Signs Temp 98.2 F 01/25/22 05:00 Pulse 78 01/25/22 06:00 Resp 30 H 01/25/22 06:00 BP 115/72 01/25/22 06:00 Pulse Ox 95 01/25/22 07:35 FiO2 45 01/22/22 21:25 Intake & Output 01/24/22 01/25/22 01/25/22 18:59 06:59 18:59 Intake Total 661.926 300 50 Output Total 400 405 Balance 261.926 -105 50 Weight 96.6 kg Intake: IV 136 Amiodarone 450 mg In 16 Dextrose 5% in Water 250 ml @ 0.5 MG/MIN 16.667 mls/hr IV .Q15H [facility] Rx#: [id number] Pressure Bags 45 Sodium Chloride 0.9% 1, 75 000 ml @ 50 mls/hr IV . Q20H [facility] Rx#:[id number] Intake, IV Titration 275.926 Amount Insulin Regular 100 unit 0.926 In Sodium Chloride 0.9% 100 ml @ Per Protocol IV .Q0M [facility] Rx#:[id number] Sodium Chloride 0.9% 1, 275 000 ml @ 0 mls/hr IV .STK -MED ONE Rx#:[id number] Oral 250 300 50 Output: Chest Tube Drainage 50 L Pleural 50 Urine 350 405 Other: Voiding Method Urinal Urinal ABP, PAP, CO, CI - Last Documented Arterial Blood Pressure 113/51 Pulmonary Artery Pressure 21/9 Cardiac Output 4.7 Cardiac Index 2.2 - Labs CBC & Chem 7: 01/24/22 04:05 01/24/22 04:05 Labs: Abnormal Lab Results - Last 24 Hours (Table) 01/24/22 01/24/22 01/24/22 Range/Units 08:59 13:16 17:20 POC Glucose (mg/dL) 180 H 155 H 187 H (70-110) mg/dL 01/25/22 Range/Units 06:38 POC Glucose (mg/dL) 135 H (70-110) mg/dL
[2022-01-25] MEDS: ASPIRIN 325 MG TAB PO SCH (09:42)
[2022-01-25] MEDS: MULTIVITAMINS, THERA 1 EACH TAB PO SCH (09:42)
[2022-01-25] MEDS: TAMSULOSIN 0.4 MG CAP.ER.24H PO SCH (09:42)
[2022-01-25] MEDS: CLOPIDOGREL 75 MG TAB PO SCH (09:42)
[2022-01-25] MEDS: ATORVASTATIN 40 MG TAB PO SCH (09:42)
[2022-01-25] MEDS: AMIODARONE 200 MG TAB PO SCH ×2 (09:42→20:15)
[2022-01-25] MEDS: ENOXAPARIN 40 MG/0.4 ML SYRINGE SQ SCH (09:43)
[2022-01-25] MEDS: METOPROLOL TARTRATE 25 MG TAB PO SCH ×2 (09:44→20:15)
[2022-01-25 10:33] LABS: Basophils % (A) 0 %; Eosinophils # (A) 0.1 k/uL (0-0.7); Eosinophils % (A) 1 %; HCT 32.3 % (39.0-53.0); HGB 10.6 gm/dL (13.0-17.5); Lymphocytes # (A) 0.9 k/uL (1.0-4.8); Lymphocytes % (A) 8 %; MCH 32.5 pg (25.0-35.0); MCHC 32.8 g/dL (31.0-37.0); MCV 99.1 fL (80.0-100.0); Mean Platelet Volume 8.2; Monocytes # (A) 0.3 k/uL (0-1.0); Monocytes % (A) 3 %; Neutrophils # (A) 10.3 k/uL (1.3-7.7); Neutrophils % (A) 88 %; Platelet Count 299 k/uL (150-450); RBC 3.26 m/uL (4.30-5.90); RDW 12.6 % (11.5-15.5); WBC 11.7 k/uL (3.8-10.6)
--- NOTE | 2022-01-25 10:46 | P.PN ---
Subjective Progress Note Date: 01/25/22 Principal diagnosis: Chest pain. Pulmonary consult dated 01/20/2022. A 81-year-old male who presented to the emergency department on January 18, complaining of chest pain. Chest pain had been going on for about a week or so and was exertional in nature. More recently, he had constant nonexertional chest pain for 4 hours before admission to the emergency department. He also was having some diaphoresis. There is no vomiting or abdominal pain. The patient was seen in the emergency room, admitted to the hospital with acute coronary syndrome. The pain did radiate up into his jaw and neck. This patient has a history of hyperlipidemia. The patient also smoked for about 15-18 years many years ago. 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 We were asked to see this patient, because he is apparently going to have bypass grafting on Thursday of this week. It appears that he doesn't have any significant lung disease. He denies any shortness of breath. He does not take any breathing medications at home. We have not yet seen his PFTs. White count 14.8, normal hemoglobin, hematocrit, and platelet count. PTT is 33. Sodium 134, potassium 4.3, chlorides 102, CO2 25, BUN 16, creatinine 0.9. Troponin was 200, subsequent troponin was 79.5. Chest x-ray was normal. Progress note dated 01/21/2022. This is a 81-year-old male who came to the emergency department with chest pain. Catheterization revealed significant coronary disease, and he is scheduled for bypass grafting tomorrow. He had lung function done at the bedside, showing an FEV1 that was 83% of predicted. He did smoke in the distant past. He denies any respiratory issues. Currently, the patient's getting saline IV, and IV heparin. He is therapeutic. White count 10.4, hemoglobin 13.9, hematocrit 42.8, and platelet count 244,000. No additional labs to note. Progress note dated 01/22/2022. 81-year-old male to undergo bypass grafting today. The patient will eventually end up back in the intensive care unit, where we will attempt to get him extubated as soon as possible. The patient's lung function was excellent. He should do well with surgery. No new labs this morning other than a glucose of 111. Progress note dated 01/23/2022. 81-year-old male postop day #1, status post three-vessel bypass grafting. The surgery was done by Dr. Valadez. The patient was extubated in timely fashion. He's currently on 3 L nasal cannula. He is getting saline at 20 mL an hour, and an insulin drip at 3.5 units an hour. White count 9.7, hemoglobin 10.7, hematocrit 33.1, and platelet count 215,000. Sodium 135, potassium 4.4, chlorides 102, CO2 22, BUN 24, creatinine 0.8. Chest x-ray shows removal of endotracheal tube, and some bibasilar atelectasis, and small effusion. Clinically, the patient appears to be doing relatively well. He is up in a chair. Other than pain at the surgical site, he has no major complaints. Progress note dated 01/24/2022. 81-year-old male, postop day #2, status post three-vessel bypass grafting. Currently, the patient's on room air. He is getting amiodarone 0.5 mg/m, saline at 75 mL an hour, and an insulin drip at 1.5 units an hour. He developed atrial fibrillation last night at about 7 PM. He is resting comfortably, room 264, in the intensive care unit. He continues to use his incentive spirometer, every hour. White count 13.9, hemoglobin 10.3, hematocrit 30.9, with a normal platelet count. Sodium 131, potassium 3.7, chlorides 100, CO2 22, BUN 26, and creatinine 0.86. Chest x-ray shows some post-surgical changes, and some very mild interstitial edema. Progress note dated 01/25/2022. 81-year-old male, postop day #3, status post three-vessel bypass grafting. Currently, he's on room air. Is not receiving any IV fluids. Blood work was recently done. He is doing well on his incentive spirometer. Today's labs include a white count 11.7, hemoglobin 10.6, hematocrit 32.3, and a platelet count of 299,000. Today's chest x-ray is essentially unchanged, compared to the previous x-ray, and shows some mild interstitial edema. Objective - Vital Signs Vital signs: Vital Signs Temp 98 F 01/25/22 08:00 Pulse 77 01/25/22 10:00 Resp 16 01/25/22 10:00 BP 109/66 01/25/22 10:00 Pulse Ox 99 01/25/22 10:00 FiO2 45 01/22/22 21:25 Intake & Output 01/24/22 01/25/22 01/25/22 18:59 06:59 18:59 Intake Total 661.926 300 150 Output Total 400 405 0 Balance 261.926 -105 150 Weight 96.6 kg Intake: IV 136 Amiodarone 450 mg In 16 Dextrose 5% in Water 250 ml @ 0.5 MG/MIN 16.667 mls/hr IV .Q15H [facility] Rx#: [id number] Pressure Bags 45 Sodium Chloride 0.9% 1, 75 000 ml @ 50 mls/hr IV . Q20H [facility] Rx#:[id number] Intake, IV Titration 275.926 Amount Insulin Regular 100 unit 0.926 In Sodium Chloride 0.9% 100 ml @ Per Protocol IV .Q0M [facility] Rx#:[id number] Sodium Chloride 0.9% 1, 275 000 ml @ 0 mls/hr IV .STK -[facility] Rx#:[id number] Oral 250 300 150 Output: Chest Tube Drainage 50 L Pleural 50 Urine 350 405 0 Other: Voiding Method Urinal Urinal Urinal ABP, PAP, CO, CI - Last Documented Arterial Blood Pressure 113/51 Pulmonary Artery Pressure 21/9 Cardiac Output 4.7 Cardiac Index 2.2 - Exam No acute distress, oriented 3. Room air saturation is 99%. HEENT examination is grossly unremarkable. Neck supple. Full range of motion. No adenopathy thyromegaly or neck vein distention. Cardiovascular examination reveals regular rhythm rate. S1-S2 normal. No S3 or S4. No discernible murmur noted. Heart rate 77 bpm. Lungs reveal mostly clear breath sounds. Breath sounds are equal bilaterally. No wheezes or crackles. Scattered mild rhonchi are noted. Saturations are 99%. Abdomen soft bowel sounds are heard. No masses or tenderness. Extremities are intact. No cyanosis clubbing or edema. Skin is without rash or lesion. Neurologic examination is brief but nonfocal. - Labs CBC & Chem 7: 01/25/22 10:00 01/24/22 04:05 Labs: Abnormal Lab Results - Last 24 Hours (Table) 01/24/22 01/24/22 01/25/22 Range/Units 13:16 17:20 06:38 WBC (3.8-10.6) k/uL RBC (4.30-5.90) m/uL Hgb (13.0-17.5) gm/dL Hct (39.0-53.0) % Neutrophils # (1.3-7.7) k/uL Lymphocytes # (1.0-4.8) k/uL POC Glucose (mg/dL) 155 H 187 H 135 H (70-110) mg/dL 01/25/22 Range/Units 10:00 WBC 11.7 H (3.8-10.6) k/uL RBC 3.26 L (4.30-5.90) m/uL Hgb 10.6 L (13.0-17.5) gm/dL Hct 32.3 L (39.0-53.0) % Neutrophils # 10.3 H (1.3-7.7) k/uL Lymphocytes # 0.9 L (1.0-4.8) k/uL POC Glucose (mg/dL) (70-110) mg/dL Assessment and Plan Assessment: Non-ST segment elevation myocardial infarction. Postop day #3, status post three-vessel bypass grafting. Routine postoperative ventilator management. CAD, with previous PCI, and stent placement. History of hyperlipidemia. No apparent chronic lung disease, with an FEV1 that is 83% of predicted. History of hypothyroidism. Previous history of tobacco use. Plan: Plan dated 01/20/2022. Today, we explained to the patient, our role in his care. I told him was to follow. Initially, we will work to get him off the mechanical ventilator. Subsequent to that, we'll see him on a daily basis, and keep his lungs healthy. We did talk about the importance of deep breathing, coughing, clearing of secretions, and hourly use of the incentive spirometer. Additional recommendations and suggestions are forthcoming. Prognosis is thought to be generally good. We have yet to see his spirometry. Chest x-ray, labs, and medications are reviewed. Plan dated 01/21/2022. The patient spirometry was read by my partner. FEV1 is well over 2 L, and 83% of predicted. The patient should do well from the pulmonary standpoint. We will continue to follow the patient and make recommendations along the way. We do encourage deep breathing, coughing, and clearing of secretions, as well as hourly use of the incentive spirometer. Plan dated 01/22/2022. The patient will be seen back in the ICU, once he gets back from the operating room. Additional recommendations and suggestions are forthcoming. We'll attempt to get the patient extubated as soon as possible. Labs, x-rays, and medications are reviewed. We will continue to follow and make recommendations along the way. Plan dated 01/23/2022. The patient appears to be doing reasonably well. He remains on 3 L, and insulin drip at 3.5 units an hour. Hemodynamically, he stable. His respiratory status also appears to be stable. His labs, x-rays, and medications are reviewed. He is postop day #1. We encourage deep breathing, coughing, and clearing his secretions, as well as hourly use of the incentive spirometer. Additional recommendations and suggestions will be made. Prognosis is guarded. Plan dated 01/24/2022. Labs, x-rays, and medications are reviewed. The patient appears be doing well. His been weaned down to room air. Hemodynamically, he stable. We will continue to follow. Today's postop day #2. He did have a three-vessel bypass grafting. Labs, x-rays, and medications are reviewed. He continues to use his incentive spirometer, hourly. We do recommend deep breathing, coughing, and clearing of secretions as well. Plan dated 01/25/2022. The patient is doing very well. We will see him again tomorrow. Chest x-rays essentially unchanged. Labs, x-rays, and medications are all reviewed. The patient will likely be discharged home on Thursday. We will continue to follow. Encourage deep breathing, coughing, clearing of secretions. In addition, we also recommend hourly use of the incentive spirometer. Time with Patient: Less than 30
[2022-01-25 10:49] LABS: Albumin 3.4 g/dL (3.5-5.0); Potassium 4.2 mmol/L (3.5-5.1); Total Bilirubin 0.6 mg/dL (0.2-1.3); Total Protein 5.9 g/dL (6.3-8.2)
--- NOTE | 2022-01-25 11:13 | P.PN ---
Subjective Progress Note Date: 01/25/22 Principal diagnosis: Severe triple-vessel coronary artery disease, non-ST elevated myocardial infarction this admission, and mild to moderate left ventricular dysfunction. Past medical history significant for coronary artery disease with remote history of PCI with stent placement to his left anterior descending coronary artery and circumflex coronary artery, hyperlipidemia, thyroid disorder, remote history of nicotine dependence, daily EtOH drinks 1 beer daily and a family history of early onset coronary artery disease with his dad passing away from a myocardial infarction at age 55. POD #3 triple-vessel coronary artery bypass grafting using the left internal mammary artery to left anterior setting coronary artery, a reverse greater saphenous vein graft from the aorta to the posterior descending coronary artery, a reverse greater saphenous vein graft from the aorta to the obtuse marginal coronary artery. Exclusion of the left atrial appendage using a 35 mm Atriclip, endoscopic harvesting of the left greater saphenous vein, intraoperative graft flow measurement using the [employer] Ultracold([employer])stim system and intraoperative transesophageal echocardiogram and epi-aortic scanning. Postoperative acute blood loss anemia, expected given hemodilution and cardiopulmonary bypass. Postoperative paroxysmal atrial fibrillation, a known common occurrence after cardiac surgery. The patient was seen and examined today 01/25/2022 at the bedside in the intensive care unit. Currently sitting up to the bedside chair, is awake, alert, oriented 3 and is in no acute distress. Oxygen saturation are 98% on room air and he is achieving 1000 mL on his incentive spirometry with much encou ragement. He denies any complaints of pain or shortness of breath at this time, although he is complaining of some fatigue with ambulating. He reports he ambulated in the intensive care unit always 3-4 times yesterday with standby assistance from nursing and therapy staff. Bedside telemetry showing normal sinus rhythm heart rate 76 bpm, no further episodes of atrial fibrillation reported. Atrial epicardial pacemaker wires remain in place and grounded. His left pleural chest tube was removed yesterday without incident. He has been afebrile the last 24 hours. Objective - Vital Signs Vital signs: Vital Signs Temp 98.2 F 01/25/22 05:00 Pulse 78 01/25/22 06:00 Resp 30 H 01/25/22 06:00 BP 115/72 01/25/22 06:00 Pulse Ox 95 01/25/22 07:35 FiO2 45 01/22/22 21:25 Intake & Output 0801/25/22 01/25/22 18:59 06:59 18:59 Intake Total 661.926 300 50 Output Total 400 405 Balance 261.926 -105 50 Weight 96.6 kg Intake: IV 136 Amiodarone 450 mg In 16 Dextrose 5% in Water 250 ml @ 0.5 MG/MIN 16.667 mls/hr IV .Q15H PRN Rx#: [id number] Pressure Bags 45 Sodium Chloride 0.9% 1, 75 000 ml @ 50 mls/hr IV . Q20H PANKAJ Rx#:[id number] Intake, IV Titration 275.926 Amount Insulin Regular 100 unit 0.926 In Sodium Chloride 0.9% 100 ml @ Per Protocol IV .Q0M PANKAJ Rx#:[id number] Sodium Chloride 0.9% 1, 275 000 ml @ 0 mls/hr IV .GLOG -[facility] Rx#:[id number] Oral 250 300 50 Output: Chest Tube Drainage 50 L Pleural 50 Urine 350 405 Other: Voiding Method Urinal Urinal ABP, PAP, CO, CI - Last Documented Arterial Blood Pressure 113/51 Pulmonary Artery Pressure 21/9 Cardiac Output 4.7 Cardiac Index 2.2 - Exam CONSTITUTIONAL: Sitting up to the bedside chair in the intensive care unit, appears comfortable, cooperative, no apparent acute distress. HEENT: Neck is supple, no JVD, no lymphadenopathy. RESPIRATORY: Lungs sounds essentially clear throughout, diminished to his bilateral bases, right greater than left. Respirations are symmetrical and nonlabored. Currently on room air with oxygen saturations 98%. Able to achieve 1000 mL on his incentive spirometry. Strong cough. CARDIOVASCULAR: Regular rhythm and rate. S1 and S2 present, negative for S3, gallop or murmur. Sternum is stable. Palpable peripheral pulses bilaterally, trace edema to his bilateral lower extremities. No calf pain or tenderness noted. Heart hugger in place with patient demonstrating appropriate use. Knee- high MARICHUY hose and sequential compression devices in place to his bilateral lower extremities. Bedside telemetry showing normal sinus rhythm heart rate 76 BPM. GASTROINTESTINAL: Abdomen soft, nontender, nondistended. Active bowel sounds present 4 quadrants. Tolerating diet. Passing flatus. No guarding or rigidity. GENITOURINARY: Continues to void. Urine output 270 mL in the last 8 hours INTEGUMENTARY: Skin is warm and dry with no evidence of clubbing or cyanosis. Midline sternal incision clean dry and well approximated, covered with dry intact dressing. Left lower extremity EVH sites well approximated without redness or drainage. NEUROLOGIC: Cranial nerves II through XII intact. No focal deficits. MUSKULOSKELETAL: Able to move all extremities, strength equal bilaterally. PSYCHIATRIC: Alert and oriented to person place and time, appropriate affect, intact judgment and insight. INVASIVE LINES AND TUBES: Atrial epicardial pacemaker wires present, and grounded. - Allied health notes Allied health notes reviewed: nursing - Labs CBC & Chem 7: 01/25/22 10:00 01/25/22 10:00 Labs: Abnormal Lab Results - Last 24 Hours (Table) 01/24/22 01/24/22 01/24/22 Range/Units 08:59 13:16 17:20 POC Glucose (mg/dL) 180 H 155 H 187 H (70-110) mg/dL 01/25/22 Range/Units 06:38 POC Glucose (mg/dL) 135 H (70-110) mg/dL - Imaging and Cardiology Chest x-ray: report reviewed, image reviewed Assessment and Plan Assessment: 1. Multivessel coronary artery disease, status post three-vessel coronary artery bypass grafting surgery 2. Non-ST elevated myocardial infarction this admission 3. History of coronary artery disease with remote history of PCI to his LAD and circumflex coronary artery 4. 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 Ischemic cardiomyopathy with an ejection fraction of 40-45% 6. Hyperlipidemia 7. Thyroid disorder 8. Remote history of nicotine dependence 9. Daily EtOH use, drinks 1 beer daily 10. Family history of early onset coronary artery disease with his dad from a myocardial infarction at age 55 11. Postoperative acute blood loss anemia, expected given hemodilution and cardiopulmonary bypass 12. Postoperative paroxysmal atrial fibrillation, a known common occurrence after cardiac surgery Plan: 1. Continue to maximize medical therapy with aspirin, statin, Plavix, and beta shantel. Will increase metoprolol tartrate as tolerated. 2. Encourage incentive spirometry use 10 times every hour while awake. Bronchodilators per pulmonology/critical care medicine. 3. Increase activity, ambulate as tolerated. PT/OT/cardiac rehab following. 4. Will monitor daily labs and x-rays. Electrolyte replacement per protocol. 5. GI/DVT prophylaxis. 6. Insulin management per internal medicine, patient is a nondiabetic with a preoperative hemoglobin A1c of 5.7%. 7. Pain control with current medication regimen. 8. First postoperative day shower today, then shower daily. 9. Continue amiodarone 400 mg by mouth twice a day for atrial fibrillation prophylaxis. 10. Continue to record strict accurate intake and output. Daily weights. Me bladder scan every 6 hours and when necessary postvoid residual. If greater than 300 mL of urine please straight cath. Continue Flomax 0.4 mg by mouth daily. 11. Transfer orders placed to cardiac stepdown unit. Discharge planning is in place. 12. Keep atrial epicardial pacemaker wires in place and connected to bedside backup pacemaker generator on a AAI 50. 13. Her diuretics today. 14. More recommendations to follow based on patient's clinical course. Time with Patient: Greater than 30
--- NOTE | 2022-01-25 12:02 | P.PN ---
Subjective Progress Note Date: 01/25/22 Principal diagnosis: Chest pain Doing very well, no complaints of pain or sob. no fevers. Objective - Vital Signs Vital signs: Vital Signs Temp 98 F 01/25/22 08:00 Pulse 69 01/25/22 11:00 Resp 25 H 01/25/22 11:00 BP 96/68 01/25/22 11:00 Pulse Ox 100 01/25/22 11:00 FiO2 45 01/22/22 21:25 Intake & Output 01/24/22 01/25/22 01/25/22 18:59 06:59 18:59 Intake Total 661.926 300 150 Output Total 400 405 0 Balance 261.926 -105 150 Weight 96.6 kg Intake: IV 136 Amiodarone 450 mg In 16 Dextrose 5% in Water 250 ml @ 0.5 MG/MIN 16.667 mls/hr IV .Q15H PRN Rx#: [id number] Pressure Bags 45 Sodium Chloride 0.9% 1, 75 000 ml @ 50 mls/hr IV . Q20H PANKAJ Rx#:[id number] Intake, IV Titration 275.926 Amount Insulin Regular 100 unit 0.926 In Sodium Chloride 0.9% 100 ml @ Per Protocol IV .Q0M PANKAJ Rx#:[id number] Sodium Chloride 0.9% 1, 275 000 ml @ 0 mls/hr IV .STK -[facility] ONE Rx#:[id number] Oral 250 300 150 Output: Chest Tube Drainage 50 L Pleural 50 Urine 350 405 0 Other: Voiding Method Urinal Urinal Urinal ABP, PAP, CO, CI - Last Documented Arterial Blood Pressure 113/51 Pulmonary Artery Pressure 21/9 Cardiac Output 4.7 Cardiac Index 2.2 - Exam Constitutional: No acute distress, conversant, pleasant Eyes:Anicteric sclerae, moist conjunctiva, no lid-lag, PERRLA, ENMT: Oropharynx clear, no erythema, exudates Neck: Supple, FROM, no masses, or JVD, No carotid bruits, No thyromegaly Lungs: Clear to auscultation, Clear to percussion, Normal respiratory effort, no accessory muscle use Cardiovascular: Heart regular in rate and rhythm, No murmurs, gallops, or rubs, No peripheral edema Abdominal: Soft, Nontender, no guarding, rebound or rigidity, Normoactive bowel sounds, No hepatomegaly, No splenomegaly, No palpable mass Skin: Normal temperature, tone, texture, turgor, no induration, No subcutaneous nodules, No rash, lesions, No ulcers Extremities: No digital cyanosis, No clubbing, Pedal pulses intact and symmetrical, Radial pulses intact and symmetrical, No calf tenderness Psychiatric: Alert and oriented to person, place and time, appropriate affect, intact judgement Neuro: Muscles Strength 5/5 in all 4 extremities, Sensation to light touch grossly present throughout, Cranial nerves II-XII grossly intact, no focal sensory deficits - Labs CBC & Chem 7: 01/25/22 10:00 01/25/22 10:00 Labs: Abnormal Lab Results - Last 24 Hours (Table) 01/24/22 01/24/22 01/25/22 Range/Units 13:16 17:20 06:38 WBC (3.8-10.6) k/uL RBC (4.30-5.90) m/uL Hgb (13.0-17.5) gm/dL Hct (39.0-53.0) % Neutrophils # (1.3-7.7) k/uL Lymphocytes # (1.0-4.8) k/uL Sodium (137-145) mmol/L BUN (9-20) mg/dL Glucose (74-99) mg/dL POC Glucose (mg/dL) 155 H 187 H 135 H (70-110) mg/dL Total Protein (6.3-8.2) g/dL Albumin (3.5-5.0) g/dL 01/25/22 01/25/22 Range/Units 10:00 10:00 WBC 11.7 H (3.8-10.6) k/uL RBC 3.26 L (4.30-5.90) m/uL Hgb 10.6 L (13.0-17.5) gm/dL Hct 32.3 L (39.0-53.0) % Neutrophils # 10.3 H (1.3-7.7) k/uL Lymphocytes # 0.9 L (1.0-4.8) k/uL Sodium 134 L (137-145) mmol/L BUN 32 H (9-20) mg/dL Glucose 134 H (74-99) mg/dL POC Glucose (mg/dL) (70-110) mg/dL Total Protein 5.9 L (6.3-8.2) g/dL Albumin 3.4 L (3.5-5.0) g/dL Assessment and Plan Plan: Chest pain Non-ST elevation myocardial infarction Continue aspirin, plavix, statin Telemetry Cardiology and CT surgery following, s/p heart cath which showed 3 vessels disease S/p bypass surgery 3 vessels 01/22 Chronic systolic CHF S/p diuresis with lasix IV. Per cardio. Hypothyroidism TSH within therapeutic range Continue levothyroxine. Hyperlipidemia Resume meds Hyperglycemia, no hx of DM A1c 5.7 S.q insulin
[2022-01-25 12:05] LABS: Glucose,Whole Blood 122 mg/dL (70-110)
[2022-01-25 16:57] LABS: Glucose,Whole Blood 96 mg/dL (70-110)
[2022-01-25] MEDS: SENNOSIDES-DOCUSATE SODIUM 1 EACH TAB PO SCH (20:15)
[2022-01-25 20:24] LABS: Glucose,Whole Blood 117 mg/dL (70-110)
[2022-01-25] MEDS: DEXMEDETOMIDINE/0.9% NACL(PMX) 400 MCG in EMPTY BAG 1 BAG IV SCH (23:10)
[2022-01-26 06:25] LABS: Glucose,Whole Blood 116 mg/dL (70-110)
[2022-01-26] MEDS: INSULIN ASPART (NovoLOG) 100 UNIT/ML VIAL SQ SCH ×4 (06:37→21:00)
[2022-01-26] MEDS: LEVOTHYROXINE 137 MCG TAB PO SCH (06:55)
[2022-01-26] MEDS: PANTOPRAZOLE 40 MG TABLET PO SCH (06:55)
[2022-01-26] MEDS: THIAMINE 100 MG TAB PO SCH ×2 (06:56→17:41)
--- NOTE | 2022-01-26 07:30 | XR ---
EXAMINATION TYPE: XR chest 1V portable DATE OF EXAM: 01/26/2022 6:40 AM COMPARISON: Chest radiograph from one day prior. TECHNIQUE: XR chest 1V portable Frontal and lateral views of the chest. CLINICAL INDICATION:Male, 81 years old with history of post op CABG; FINDINGS: Lungs/Pleura: There is no evidence of pleural effusion, focal consolidation, or pneumothorax. Pulmonary vascularity: Unremarkable. Heart/mediastinum: Cardiomediastinal silhouette is enlarged and stable. Left atrial appendage occlusi on device is present. Musculoskeletal: No acute osseous pathology. Midline sternotomy wires and surgical clips project over the mediastinum. IMPRESSION: No acute cardiopulmonary disease/process.
[2022-01-26] MEDS ORDERED: DEXTROSE 5% IN WATER 100 ML with AMIODARONE 150 MG IV ONE (08:15)
[2022-01-26] MEDS: IPRATROPIUM-ALBUTEROL 3 ML NEB INHALATION SCH ×4 (08:27→19:55)
[2022-01-26 08:28] LABS: HCT 32.1 % (39.0-53.0); HGB 10.3 gm/dL (13.0-17.5); MCH 31.3 pg (25.0-35.0); MCV 97.8 fL (80.0-100.0); Mean Platelet Volume 7.7; Platelet Count 342 k/uL (150-450); RBC 3.29 m/uL (4.30-5.90); RDW 12.1 % (11.5-15.5); WBC 11.2 k/uL (3.8-10.6)
[2022-01-26 09:03] LABS: Calcium 8.8 mg/dL (8.4-10.2); Magnesium 2.1 mg/dL (1.6-2.3); Potassium 4.2 mmol/L (3.5-5.1)
[2022-01-26] MEDS: TAMSULOSIN 0.4 MG CAP.ER.24H PO SCH (09:05)
[2022-01-26] MEDS: ENOXAPARIN 40 MG/0.4 ML SYRINGE SQ SCH (09:05)
[2022-01-26] MEDS: METOPROLOL TARTRATE 50 MG TAB PO SCH ×2 (09:06→21:00)
[2022-01-26] MEDS: CLOPIDOGREL 75 MG TAB PO SCH (09:06)
[2022-01-26] MEDS: ATORVASTATIN 40 MG TAB PO SCH (09:06)
[2022-01-26] MEDS: MULTIVITAMINS, THERA 1 EACH TAB PO SCH (09:06)
[2022-01-26] MEDS: AMIODARONE 200 MG TAB PO SCH ×2 (09:07→21:00)
[2022-01-26] MEDS: ASPIRIN 325 MG TAB PO SCH (09:07)
--- NOTE | 2022-01-26 11:05 | P.PN ---
Subjective Progress Note Date: 01/26/22 PROGRESS NOTE The patient is a 81-year-old male presented with non-STEMI, he has a prior history of PCI. He underwent cardiac catheterization and was found to have severe triple-vessel disease. He underwent CABG. He is doing well this morning, sitting up in the chair, in sinus mechanism. He is ambulating. He denies any chest discomfort, dizziness or palpitations. He is feeling stronger. He has no evidence of ventricular ectopic activity or atrial fibrillation. January 26: The patient had atrial fibrillation with palpitation and dyspnea. He was started on IV amiodarone, he is back in sinus mechanism. He denies any chest discomfort, dizziness or nausea. He has been stable until he went into atrial fibrillation. Medications: Aspirin once a day Plavix 75 mg daily, Lipitor 40 mg daily, metoprolol 50 mg twice a day PHYSICAL EXAMINATION: Blood pressure 115/70 heart rate 70 LUNGS: Mild decrease in the breath sounds at the bases HEART: Regular rate and rhythm, S1, S2. No S3. systolic ejection murmur ABDOMEN: Soft, nontender, no organomegaly EXTREMETIES: Trace edema LAB: BUN 28 and creatinine 1.0 IMPRESSION: 1. Status post CABG, stable 2. Non-STEMI on presentation 3. History of PCI 4. Hyperlipidemia 5. Paroxysmal atrial fibrillation PLAN: 1. IV amiodarone 2. If further episodes of atrial fibrillation the patient will require anticoagulation 3. Increase physical activity 4. Depending on his progress further recommendations will be made. Objective - Vital Signs Vital signs: Vital Signs Temp 98.2 F 01/26/22 09:03 Pulse 82 01/26/22 10:21 Resp 16 01/26/22 10:21 BP 103/71 01/26/22 10:21 Pulse Ox 97 01/26/22 10:21 FiO2 45 01/22/22 21:25 Intake & Output 01/25/22 01/26/22 01/26/22 18:59 06:59 18:59 Intake Total 250 640 661 Output Total 200 840 Balance 50 -200 661 Weight 96 kg Intake: Oral 250 640 661 Output: Urine 200 840 Other: Voiding Method Urinal Urinal Urinal # Voids 1 ABP, PAP, CO, CI - Last Documented Arterial Blood Pressure 113/51 Pulmonary Artery Pressure 21/9 Cardiac Output 4.7 Cardiac Index 2.2 - Labs CBC & Chem 7: 01/26/22 07:54 01/26/22 07:54 Labs: Abnormal Lab Results - Last 24 Hours (Table) 01/25/22 01/25/22 01/26/22 Range/Units 12:03 20:23 06:24 WBC (3.8-10.6) k/uL RBC (4.30-5.90) m/uL Hgb (13.0-17.5) gm/dL Hct (39.0-53.0) % Sodium (137-145) mmol/L BUN (9-20) mg/dL Glucose (74-99) mg/dL POC Glucose (mg/dL) 122 H 117 H 116 H (70-110) mg/dL 01/26/22 01/26/22 Range/Units 07:54 07:54 WBC 11.2 H (3.8-10.6) k/uL RBC 3.29 L (4.30-5.90) m/uL Hgb 10.3 L (13.0-17.5) gm/dL Hct 32.1 L (39.0-53.0) % Sodium 136 L (137-145) mmol/L BUN 28 H (9-20) mg/dL Glucose 120 H (74-99) mg/dL POC Glucose (mg/dL) (70-110) mg/dL
--- NOTE | 2022-01-26 11:23 | P.PN ---
Subjective Progress Note Date: 01/26/22 Principal diagnosis: Chest pain. Pulmonary consult dated 01/20/2022. A 81-year-old male who presented to the emergency department on January 18, complaining of chest pain. Chest pain had been going on for about a week or so and was exertional in nature. More recently, he had constant nonexertional chest pain for 4 hours before admission to the emergency department. He also was having some diaphoresis. There is no vomiting or abdominal pain. The patient was seen in the emergency room, admitted to the hospital with acute coronary syndrome. The pain did radiate up into his jaw and neck. This patient has a history of hyperlipidemia. The patient also smoked for about 15-18 years many years ago. 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 We were asked to see this patient, because he is apparently going to have bypass grafting on Thursday of this week. It appears that he doesn't have any significant lung disease. He denies any shortness of breath. He does not take any breathing medications at home. We have not yet seen his PFTs. White count 14.8, normal hemoglobin, hematocrit, and platelet count. PTT is 33. Sodium 134, potassium 4.3, chlorides 102, CO2 25, BUN 16, creatinine 0.9. Troponin was 200, subsequent troponin was 79.5. Chest x-ray was normal. Progress note dated 01/21/2022. This is a 81-year-old male who came to the emergency department with chest pain. Catheterization revealed significant coronary disease, and he is scheduled for bypass grafting tomorrow. He had lung function done at the bedside, showing an FEV1 that was 83% of predicted. He did smoke in the distant past. He denies any respiratory issues. Currently, the patient's getting saline IV, and IV heparin. He is therapeutic. White count 10.4, hemoglobin 13.9, hematocrit 42.8, and platelet count 244,000. No additional labs to note. Progress note dated 01/22/2022. 81-year-old male to undergo bypass grafting today. The patient will eventually end up back in the intensive care unit, where we will attempt to get him extubated as soon as possible. The patient's lung function was excellent. He should do well with surgery. No new labs this morning other than a glucose of 111. Progress note dated 01/23/2022. 81-year-old male postop day #1, status post three-vessel bypass grafting. The surgery was done by Dr. Valadez. The patient was extubated in timely fashion. He's currently on 3 L nasal cannula. He is getting saline at 20 mL an hour, and an insulin drip at 3.5 units an hour. White count 9.7, hemoglobin 10.7, hematocrit 33.1, and platelet count 215,000. Sodium 135, potassium 4.4, chlorides 102, CO2 22, BUN 24, creatinine 0.8. Chest x-ray shows removal of endotracheal tube, and some bibasilar atelectasis, and small effusion. Clinically, the patient appears to be doing relatively well. He is up in a chair. Other than pain at the surgical site, he has no major complaints. Progress note dated 01/24/2022. 81-year-old male, postop day #2, status post three-vessel bypass grafting. Currently, the patient's on room air. He is getting amiodarone 0.5 mg/m, saline at 75 mL an hour, and an insulin drip at 1.5 units an hour. He developed atrial fibrillation last night at about 7 PM. He is resting comfortably, room 264, in the intensive care unit. He continues to use his incentive spirometer, every hour. White count 13.9, hemoglobin 10.3, hematocrit 30.9, with a normal platelet count. Sodium 131, potassium 3.7, chlorides 100, CO2 22, BUN 26, and creatinine 0.86. Chest x-ray shows some post-surgical changes, and some very mild interstitial edema. Progress note dated 01/25/2022. 81-year-old male, postop day #3, status post three-vessel bypass grafting. Currently, he's on room air. Is not receiving any IV fluids. Blood work was recently done. He is doing well on his incentive spirometer. Today's labs include a white count 11.7, hemoglobin 10.6, hematocrit 32.3, and a platelet count of 299,000. Today's chest x-ray is essentially unchanged, compared to the previous x-ray, and shows some mild interstitial edema. Progress note dated 01/26/2022. 81-year-old male, postop day #4, status post three-vessel bypass grafting. He is currently on room air. The patient is not receiving any IV fluids. The patient is hoping to be discharged soon. He did develop postoperative atrial fibrillation. Clinically he appears relatively stable. He's thinking that he might be discharged home tomorrow. He is on room air. He is not receiving any IV fluids. White count 11.2, hemoglobin 10.3, hematocrit 32.1, the platelet count 342,000. Sodium 136, potassium 4.2, chlorides 102, CO2 22, BUN 28, creatinine 1.0. Calcium is 8.8 with a magnesium of 2.1. Chest x-ray appears to be relatively normal. Objective - Vital Signs Vital signs: Vital Signs Temp 98.2 F 01/26/22 09:03 Pulse 82 01/26/22 10:21 Resp 16 01/26/22 10:21 BP 103/71 01/26/22 10:21 Pulse Ox 97 01/26/22 10:21 FiO2 45 01/22/22 21:25 Intake & Output 01/25/22 01/26/22 01/26/22 18:59 06:59 18:59 Intake Total 250 640 661 Output Total 200 840 Balance 50 -200 661 Weight 96 kg Intake: Oral 250 640 661 Output: Urine 200 840 Other: Voiding Method Urinal Urinal Urinal # Voids 1 ABP, PAP, CO, CI - Last Documented Arterial Blood Pressure 113/51 Pulmonary Artery Pressure 21/9 Cardiac Output 4.7 Cardiac Index 2.2 - Exam No acute distress, oriented 3. Room air saturation is 98 %. HEENT examination is grossly unremarkable. Neck supple. Full range of motion. No adenopathy thyromegaly or neck vein distention. Cardiovascular examination reveals regular rhythm rate. S1-S2 normal. No S3 or S4. No discernible murmur noted. Heart rate 82 bpm. Lungs reveal mostly clear breath sounds. Breath sounds are equal bilaterally. No wheezes or crackles. Scattered mild rhonchi are noted. Saturations are 98 %. Breath sounds are improved. Abdomen soft bowel sounds are heard. No masses or tenderness. Extremities are intact. No cyanosis clubbing or edema. Skin is without rash or lesion. Neurologic examination is brief but nonfocal. - Labs CBC & Chem 7: 01/26/22 07:54 01/26/22 07:54 Labs: Abnormal Lab Results - Last 24 Hours (Table) 01/25/22 01/25/22 01/26/22 Range/Units 12:03 20:23 06:24 WBC (3.8-10.6) k/uL RBC (4.30-5.90) m/uL Hgb (13.0-17.5) gm/dL Hct (39.0-53.0) % Sodium (137-145) mmol/L BUN (9-20) mg/dL Glucose (74-99) mg/dL POC Glucose (mg/dL) 122 H 117 H 116 H (70-110) mg/dL 01/26/22 01/26/22 Range/Units 07:54 07:54 WBC 11.2 H (3.8-10.6) k/uL RBC 3.29 L (4.30-5.90) m/uL Hgb 10.3 L (13.0-17.5) gm/dL Hct 32.1 L (39.0-53.0) % Sodium 136 L (137-145) mmol/L BUN 28 H (9-20) mg/dL Glucose 120 H (74-99) mg/dL POC Glucose (mg/dL) (70-110) mg/dL Assessment and Plan Assessment: Non-ST segment elevation myocardial infarction. Postop day #4, status post three-vessel bypass grafting. Postoperative atrial fibrillation. Routine postoperative ventilator management. CAD, with previous PCI, and stent placement. History of hyperlipidemia. No apparent chronic lung disease, with an FEV1 that is 83% of predicted. History of hypothyroidism. Previous history of tobacco use. Plan: Plan dated 01/20/2022. Today, we explained to the patient, our role in his care. I told him was to follow. Initially, we will work to get him off the mechanical ventilator. S ubsequent to that, we'll see him on a daily basis, and keep his lungs healthy. We did talk about the importance of deep breathing, coughing, clearing of secretions, and hourly use of the incentive spirometer. Additional recommendations and suggestions are forthcoming. Prognosis is thought to be g enerally good. We have yet to see his spirometry. Chest x-ray, labs, and medications are reviewed. Plan dated 01/21/2022. The patient spirometry was read by my partner. FEV1 is well over 2 L, and 83% of predicted. The patient should do well from the pulmonary standpoint. We will continue to follow the patient and make recommendations along the way. We do encourage deep breathing, coughing, and clearing of secretions, as well as hourly use of the incentive spirometer. Plan dated 01/22/2022. The patient will be seen back in the ICU, once he gets back from the operating room. Additional recommendations and suggestions are forthcoming. We'll attempt to get the patient extubated as soon as possible. Labs, x-rays, and medications are reviewed. We will continue to follow and make recommendations along the way. Plan dated 01/23/2022. The patient appears to be doing reasonably well. He remains on 3 L, and insulin drip at 3.5 units an hour. Hemodynamically, he stable. His respiratory status also appears to be stable. His labs, x-rays, and medications are reviewed. He is postop day #1. We encourage deep breathing, coughing, and clearing his secretions, as well as hourly use of the incentive spirometer. Additional recommendations and suggestions will be made. Prognosis is guarded. Plan dated 01/24/2022. Labs, x-rays, and medications are reviewed. The patient appears be doing well. His been weaned down to room air. Hemodynamically, he stable. We will continue to follow. Today's postop day #2. He did have a three-vessel bypass grafting. Labs, x-rays, and medications are reviewed. He continues to use his incentive spirometer, hourly. We do recommend deep breathing, coughing, and clearing of secretions as well. Plan dated 01/25/2022. The patient is doing very well. We will see him again tomorrow. Chest x-rays essentially unchanged. Labs, x-rays, and medications are all reviewed. The patient will likely be discharged home on Thursday. We will continue to follow. Encourage deep breathing, coughing, clearing of secretions. In addition, we al so recommend hourly use of the incentive spirometer. Plan dated 01/26/2022. The patient is hoping to be discharged in the next 24-48 hours. He is currently in atrial fibrillation with a rate of 104. He is on room air. He's not receiving any IV fluids. His chest x-ray looks normal. Labs, x-rays, medications are all reviewed additional recommendations and suggestions are forthcoming. Prognosis is certainly guarded. Time with Patient: Less than 30
[2022-01-26 11:34] LABS: Glucose,Whole Blood 173 mg/dL (70-110)
--- NOTE | 2022-01-26 11:58 | P.PN ---
Subjective Progress Note Date: 01/26/22 Principal diagnosis: Severe triple-vessel coronary artery disease, non-ST elevated myocardial infarction this admission, and mild to moderate left ventricular dysfunction. Past medical history significant for coronary artery disease with remote history of PCI with stent placement to his left anterior descending coronary artery and circumflex coronary artery, hyperlipidemia, thyroid disorder, remote history of nicotine dependence, daily EtOH drinks 1 beer daily and a family history of early onset coronary artery disease with his dad passing away from a myocardial infarction at age 55. POD #4 triple-vessel coronary artery bypass grafting using the left internal mammary artery to left anterior setting coronary artery, a reverse greater saphenous vein graft from the aorta to the posterior descending coronary artery, a reverse greater saphenous vein graft from the aorta to the obtuse marginal coronary artery. Exclusion of the left atrial appendage using a 35 mm Atriclip, endoscopic harvesting of the left greater saphenous vein, intraoperative graft flow measurement using the Qewzstim system and intraoperative transesophageal echocardiogram and epi-aortic scanning. Postoperative acute blood loss anemia, expected given hemodilution and cardiopulmonary bypass. Postoperative paroxysmal atrial fibrillation, a known common occurrence after cardiac surgery. The patient was seen and examined today 01/26/2022 at his bedside on the cardiac stepdown unit. He denies any complaints of pain or shortness of breath at this time, although he is complaining of feeling of his heart fluttering periodically. Remote telemetry showing atrial fibrillation heart rate 81 bpm, he remains on metoprolol tartrate and amiodarone for atrial fibrillation prophylaxis. Oxygen saturations are 96% on room air and he is achieving thousand to 1500 mL on his incentive spirometry with much encouragement. Currently sitting up to the bedside chair, is awake, alert, oriented 3 and is in no acute apparent distress. He remained hemodynamically stable and is currently on no inotropic or pressor support. Lab results today show a WBC count of 11.2, hemoglobin 10.3, hematocrit 32.1, platelets 342, sodium 136, potassium 4.2, BUN 28, creatinine 1.00, glucose 120, calcium 8.8 and magnesium 2.1. His T-max temperature in the last 24 hours is 99.6F. He reports he has been up ambulating in the cardiac stepdown unit hallway with standby assistance from nursing and therapy staff. He had his first postoperative day shower yesterday and tolerated well. Atrial epicardial pacemaker wires remain in place and are grounded. Objective - Vital Signs Vital signs: Vital Signs Temp 98.8 F 01/26/22 04:09 Pulse 84 01/26/22 08:41 Resp 15 01/26/22 04:09 BP 104/66 01/26/22 04:09 Pulse Ox 96 01/26/22 08:27 FiO2 45 01/22/22 21:25 Intake & Output 01/25/22 01/26/22 01/26/22 18:59 06:59 18:59 Intake Total 250 640 661 Output Total 200 840 Balance 50 -200 661 Weight 96 kg Intake: Oral 250 640 661 Output: Urine 200 840 Other: Voiding Method Urinal Urinal # Voids 1 ABP, PAP, CO, CI - Last Documented Arterial Blood Pressure 113/51 Pulmonary Artery Pressure 21/9 Cardiac Output 4.7 Cardiac Index 2.2 - Exam CONSTITUTIONAL: Sitting up to the bedside chair on the cardiac stepdown unit, appears comfortable, cooperative, no apparent acute distress. HEENT: Neck is supple, no JVD, no lymphadenopathy. RESPIRATORY: Lungs sounds essentially clear throughout, diminished to his bilateral bases, right greater than left. Respirations are symmetrical and nonlabored. Currently on room air with oxygen saturations 96%. Able to achieve 5482-7636 mL on his incentive spirometry. Strong cough. CARDIOVASCULAR: Irregular rhythm with controlled rate. S1 and S2 present, negative for S3, gallop or murmur. Sternum is stable. Palpable peripheral pulses bilaterally, trace edema to his bilateral lower extremities. No calf pain or tenderness noted. Heart hugger in place with patient demonstrating appropriate use, although needs frequent reminding. Knee-high MARICHUY hose and seq uential compression devices in place to his bilateral lower extremities. Remote telemetry showing atrial fibrillation heart rate 81 BPM. GASTROINTESTINAL: Abdomen soft, nontender, nondistended. Active bowel sounds present 4 quadrants. Tolerating diet. Passing flatus. No guarding or rigidity. GENITOURINARY: Continues to void. Urine output 475 mL in the last 8 hours INTEGUMENTARY: Skin is warm and dry with no evidence of clubbing or cyanosis. Midline sternal incision clean dry and well approximated, covered with dry intact dressing. Left lower extremity EVH sites well approximated without redness or drainage. NEUROLOGIC: Cranial nerves II through XII intact. No focal deficits. MUSKULOSKELETAL: Able to move all extremities, strength equal bilaterally. PSYCHIATRIC: Alert and oriented to person place and time, appropriate affect, intact judgment and insight. INVASIVE LINES AND TUBES: Atrial epicardial pacemaker wires present, and grounded. - Allied health notes Allied health notes reviewed: nursing - Labs CBC & Chem 7: 01/26/22 07:54 01/26/22 07:54 Labs: Abnormal Lab Results - Last 24 Hours (Table) 01/25/22 01/25/22 01/25/22 Range/Units 10:00 10:00 12:03 WBC 11.7 H (3.8-10.6) k/uL RBC 3.26 L (4.30-5.90) m/uL Hgb 10.6 L (13.0-17.5) gm/dL Hct 32.3 L (39.0-53.0) % Neutrophils # 10.3 H (1.3-7.7) k/uL Lymphocytes # 0.9 L (1.0-4.8) k/uL Sodium 134 L (137-145) mmol/L BUN 32 H (9-20) mg/dL Glucose 134 H (74-99) mg/dL POC Glucose (mg/dL) 122 H (70-110) mg/dL Total Protein 5.9 L (6.3-8.2) g/dL Albumin 3.4 L (3.5-5.0) g/dL 01/25/22 01/26/22 01/26/22 Range/Units 20:23 06:24 07:54 WBC 11.2 H (3.8-10.6) k/uL RBC 3.29 L (4.30-5.90) m/uL Hgb 10.3 L (13.0-17.5) gm/dL Hct 32.1 L (39.0-53.0) % Neutrophils # (1.3-7.7) k/uL Lymphocytes # (1.0-4.8) k/uL Sodium (137-145) mmol/L BUN (9-20) mg/dL Glucose (74-99) mg/dL POC Glucose (mg/dL) 117 H 116 H (70-110) mg/dL Total Protein (6.3-8.2) g/dL Albumin (3.5-5.0) g/dL - Imaging and Cardiology Chest x-ray: report reviewed, image reviewed Assessment and Plan Assessment: 1. Multivessel coronary artery disease, status post three-vessel coronary artery bypass grafting surgery 2. Non-ST elevated myocardial infarction this admission 3. History of coronary artery disease with remote history of PCI to his LAD and circumflex coronary artery 4. 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 Ischemic cardiomyopathy with an ejection fraction of 40-45% 6. Hyperlipidemia 7. Thyroid disorder 8. Remote history of nicotine dependence 9. Daily EtOH use, drinks 1 beer daily 10. Family history of early onset coronary artery disease with his dad from a myocardial infarction at age 55 11. Postoperative acute blood loss anemia, expected given hemodilution and cardiopulmonary bypass 12. Postoperative paroxysmal atrial fibrillation, a known common occurrence after cardiac surgery, status post exclusion of the left atrial appendage with a 35 mm Atriclip Plan: 1. Continue to maximize medical therapy with aspirin, statin, Plavix, and beta shantel. Will increase metoprolol tartrate 50 mg by mouth twice a day. 2. Encourage incentive spirometry use 10 times every hour while awake. Bronchodilators per pulmonology/critical care medicine. 3. Increase activity, ambulate as tolerated. PT/OT/cardiac rehab following. 4. Will monitor daily labs and x-rays. Electrolyte replacement per protocol. 5. GI/DVT prophylaxis. 6. Insulin management per internal medicine, patient is a nondiabetic with a preoperative hemoglobin A1c of 5.7%. 7. Pain control with current medication regimen. 8. Shower daily. 9. Continue amiodarone 400 mg by mouth twice a day for atrial fibrillation prophylaxis. Amiodarone 150 mg IV piggyback bolus 1 now over 10 minutes. 10. Continue to record strict accurate intake and output. Daily weights. Me bladder scan every 6 hours and when necessary postvoid residual. If greater than 300 mL of urine please straight cath. Continue Flomax 0.4 mg by mouth daily. 11. Discharge planning is in place, anticipate discharge home within the next 24-48 hours with home health care. 12. Keep atrial epicardial pacemaker wires in place and connected to bedside backup pacemaker generator on a AAI 50, we will remove his atrial epicardial pacemaker wires tomorrow 01/27/2022. 13. More recommendations to follow based on patient's clinical course. Time with Patient: Greater than 30
--- NOTE | 2022-01-26 12:50 | P.PN ---
Subjective Progress Note Date: 01/26/22 Principal diagnosis: Chest pain Patient having paroxysms of atrial fibrillation. He states that he feels okay. Denied having shortness of breath, still with some incisional pain. No palpitations. No dizziness. Objective - Vital Signs Vital signs: Vital Signs Temp 98.2 F 01/26/22 09:03 Pulse 82 01/26/22 10:21 Resp 16 01/26/22 10:21 BP 103/71 01/26/22 10:21 Pulse Ox 97 01/26/22 10:21 FiO2 45 01/22/22 21:25 Intake & Output 01/25/22 01/26/22 01/26/22 18:59 06:59 18:59 Intake Total 250 640 901 Output Total 200 840 150 Balance 50 -200 751 Weight 96 kg Intake: Oral 250 640 901 Output: Urine 200 840 150 Other: Voiding Method Urinal Urinal Urinal # Voids 1 ABP, PAP, CO, CI - Last Documented Arterial Blood Pressure 113/51 Pulmonary Artery Pressure 21/9 Cardiac Output 4.7 Cardiac Index 2.2 - Exam Constitutional: No acute distress, conversant, pleasant Eyes:Anicteric sclerae, moist conjunctiva, no lid-lag, PERRLA, ENMT: Oropharynx clear, no erythema, exudates Neck: Supple, FROM, no masses, or JVD, No carotid bruits, No thyromegaly Lungs: Clear to auscultation, Clear to percussion, Normal respiratory effort, no accessory muscle use Cardiovascular: Heart regular in rate and rhythm, No murmurs, gallops, or rubs, No peripheral edema Abdominal: Soft, Nontender, no guarding, rebound or rigidity, Normoactive bowel sounds, No hepatomegaly, No splenomegaly, No palpable mass Skin: Normal temperature, tone, texture, turgor, no induration, No subcutaneous nodules, No rash, lesions, No ulcers Extremities: No digital cyanosis, No clubbing, Pedal pulses intact and symmetrical, Radial pulses intact and symmetrical, No calf tenderness Psychiatric: Alert and oriented to person, place and time, appropriate affect, intact judgement Neuro: Muscles Strength 5/5 in all 4 extremities, Sensation to light touch grossly present throughout, Cranial nerves II-XII grossly intact, no focal sensory deficits - Labs CBC & Chem 7: 01/26/22 07:54 01/26/22 07:54 Labs: Abnormal Lab Results - Last 24 Hours (Table) 01/25/22 01/26/22 01/26/22 Range/Units 20:23 06:24 07:54 WBC 11.2 H (3.8-10.6) k/uL RBC 3.29 L (4.30-5.90) m/uL Hgb 10.3 L (13.0-17.5) gm/dL Hct 32.1 L (39.0-53.0) % Sodium (137-145) mmol/L BUN (9-20) mg/dL Glucose (74-99) mg/dL POC Glucose (mg/dL) 117 H 116 H (70-110) mg/dL 01/26/22 01/26/22 Range/Units 07:54 11:32 WBC (3.8-10.6) k/uL RBC (4.30-5.90) m/uL Hgb (13.0-17.5) gm/dL Hct (39.0-53.0) % Sodium 136 L (137-145) mmol/L BUN 28 H (9-20) mg/dL Glucose 120 H (74-99) mg/dL POC Glucose (mg/dL) 173 H (70-110) mg/dL Assessment and Plan Plan: Chest pain Non-ST elevation myocardial infarction Continue aspirin, plavix, statin Telemetry Cardiology and CT surgery following, s/p heart cath which showed 3 vessels disease S/p bypass surgery 3 vessels 01/22 Chronic systolic CHF S/p diuresis with lasix IV. Per cardio. Paroxysmal atrial fibrillation Started on amiodarone Hypothyroidism TSH within therapeutic range Continue levothyroxine. Hyperlipidemia Resume meds BPH Continue flomax. Hyperglycemia, no hx of DM A1c 5.7 S.q insulin
[2022-01-26 16:31] LABS: Glucose,Whole Blood 91 mg/dL (70-110)
[2022-01-26] MEDS ORDERED: WARFARIN 7.5 MG TAB PO ONE (18:00)
[2022-01-26] MEDS: SENNOSIDES-DOCUSATE SODIUM 1 EACH TAB PO SCH (21:00)
[2022-01-26 21:01] LABS: Glucose,Whole Blood 129 mg/dL (70-110)
[2022-01-27] MEDS: FUROSEMIDE 10 MG/ML 4 ML VIAL IV SCH (03:04)
[2022-01-27] MEDS: ASPIRIN 325 MG TAB PO SCH (03:04)
[2022-01-27] MEDS: MUPIROCIN 2% OINT 22 GM TUBE NASAL SCH (03:05)
[2022-01-27] MEDS: CLEVIDIPINE BUTYRATE 25 MG in EMPTY BAG 1 BAG IV SCH (03:08)
[2022-01-27 06:28] LABS: Glucose,Whole Blood 108 mg/dL (70-110)
[2022-01-27] MEDS: INSULIN ASPART (NovoLOG) 100 UNIT/ML VIAL SQ SCH ×2 (06:34→12:00)
[2022-01-27] MEDS: LEVOTHYROXINE 137 MCG TAB PO SCH (06:56)
[2022-01-27] MEDS: THIAMINE 100 MG TAB PO SCH (06:56)
[2022-01-27] MEDS: PANTOPRAZOLE 40 MG TABLET PO SCH (06:57)
[2022-01-27 08:04] LABS: HCT 30.5 % (39.0-53.0); HGB 10.2 gm/dL (13.0-17.5); MCH 32.5 pg (25.0-35.0); MCHC 33.4 g/dL (31.0-37.0); MCV 97.1 fL (80.0-100.0); Mean Platelet Volume 7.5; Platelet Count 431 k/uL (150-450); RBC 3.14 m/uL (4.30-5.90); WBC 9.1 k/uL (3.8-10.6)
[2022-01-27 08:33] LABS: Calcium 8.6 mg/dL (8.4-10.2); Potassium 4.1 mmol/L (3.5-5.1)
[2022-01-27] MEDS: IPRATROPIUM-ALBUTEROL 3 ML NEB INHALATION SCH ×2 (08:34→12:20)
[2022-01-27] MEDS ORDERED: ASPIRIN 325 MG TAB PO SCH (09:00)
[2022-01-27] MEDS ORDERED: ASPIRIN 81 MG PO SCH (09:00)
--- NOTE | 2022-01-27 09:17 | P.PN ---
Subjective Progress Note Date: 01/27/22 Principal diagnosis: Severe triple-vessel coronary artery disease, non-ST elevated myocardial infarction this admission, and mild to moderate left ventricular dysfunction. Past medical history significant for coronary artery disease with remote history of PCI with stent placement to his left anterior descending coronary artery and circumflex coronary artery, hyperlipidemia, thyroid disorder, remote history of nicotine dependence, daily EtOH drinks 1 beer daily and a family history of early onset coronary artery disease with his dad passing away from a myocardial infarction at age 55. POD #5 triple-vessel coronary artery bypass grafting using the left internal mammary artery to left anterior setting coronary artery, a reverse greater saphenous vein graft from the aorta to the posterior descending coronary artery, a reverse greater saphenous vein graft from the aorta to the obtuse marginal coronary artery. Exclusion of the left atrial appendage using a 35 mm Atriclip, endoscopic harvesting of the left greater saphenous vein, intraoperative graft flow measurement using the Innov[employer] system and intraoperative transesophageal echocardiogram and epi-aortic scanning. Postoperative acute blood loss anemia, expected given hemodilution and cardiopulmonary bypass. Postoperative paroxysmal atrial fibrillation, a known common occurrence after cardiac surgery. The patient was seen and examined today 01/27/2022 at his bedside on the cardiac stepdown unit. Patient is currently up and plating in his room, is awake, alert, oriented 3 and is in no acute distress. Denies any complaints of pain or shortness of breath at this time although was complaining of episodes of loose stools. He has been afebrile the last 24 hours. Oxygen saturation are 95% on room air and he is achieving 1500 mL on his incentive spirometry with much encouragement. The patient's heart hugger is in place and the patient does need frequent reminding of use. Laboratory results this morning show a WBC count of 9.1, hemoglobin 10.2, hematocrit 30.5, platelets 431, sodium 137, potassium 4.1, BUN 24, creatinine 1.09, glucose 107 and calcium 8.6. Atrial epicardial pacemaker wires were removed this morning without incident and he will be on bed rest for 1 hour post pacemaker wire removal. Remote telemetry showing normal sinus rhythm heart rate 84 BPM. No further episodes of atrial fibrillation reported and he remains on metoprolol tartrate 50 mg by mouth twice a day and amiodarone 400 mg by mouth twice a day for atrial fibrillation prophylaxis. Discharge planning is in place, discharge instructions have been reviewed with the patient and will be reinforced with the patient and the patient's when discharged today. Objective - Vital Signs Vital signs: Vital Signs Temp 98.3 F 01/27/22 04:15 Pulse 83 01/27/22 04:15 Resp 17 01/27/22 04:15 BP 105/73 01/27/22 04:15 Pulse Ox 98 01/27/22 08:33 FiO2 45 01/22/22 21:25 Intake & Output 01/26/22 01/27/22 01/27/22 18:59 06:59 18:59 Intake Total 1331 560 Output Total 325 425 Balance 1006 135 Weight 94.6 kg Intake: IV 10 20 Invasive Line 6 10 20 Oral 1321 540 Output: Urine 325 425 Other: Voiding Method Urinal Urinal # Voids 2 ABP, PAP, CO, CI - Last Documented Arterial Blood Pressure 113/51 Pulmonary Artery Pressure 21/9 Cardiac Output 4.7 Cardiac Index 2.2 - Exam CONSTITUTIONAL: Ambulating in his room on the cardiac stepdown unit, appears comfortable, cooperative, no apparent acute distress. HEENT: Neck is supple, no JVD, no lymphadenopathy. RESPIRATORY: Lungs sounds essentially clear throughout, diminished to his bilateral bases, right greater than left. Respirations are symmetrical and nonlabored. Currently on room air with oxygen saturations 95%. Able to achieve 4485-3623 mL on his incentive spirometry. Strong cough. CARDIOVASCULAR: Regular rhythm and rate. S1 and S2 present, negative for S3, gallop or murmur. Sternum is stable. Palpable peripheral pulses bilaterally, no edema to his bilateral lower extremities. No calf pain or tenderness noted. Heart hugger in place with patient demonstrating appropriate use, although needs frequent reminding. Knee-high MARICHUY hose and sequential compression devices in place to his bilateral lower extremities. Remote telemetry showing atrial fibrillation heart rate 84 BPM. GASTROINTESTINAL: Abdomen soft, nontender, nondistended. Active bowel sounds present 4 quadrants. Tolerating diet. Passing flatus. No guarding or rigidity. Bowel movement this a.m. GENITOURINARY: Continues to void. Urine output 425 mL in the last 8 hours INTEGUMENTARY: Skin is warm and dry with no evidence of clubbing or cyanosis. Midline sternal incision clean dry and well approximated, covered with dry intact dressing. Left lower extremity EVH sites well approximated without redness or drainage. NEUROLOGIC: Cranial nerves II through XII intact. No focal deficits. MUSKULOSKELETAL: Able to move all extremities, strength equal bilaterally. PSYCHIATRIC: Alert and oriented to person place and time, appropriate affect, intact judgment and insight. - Allied health notes Allied health notes reviewed: nursing - Labs CBC & Chem 7: 01/27/22 07:25 01/27/22 07:25 Labs: Abnormal Lab Results - Last 24 Hours (Table) 01/26/22 01/26/22 01/26/22 Range/Units 07:54 11:32 20:59 RBC (4.30-5.90) m/uL Hgb (13.0-17.5) gm/dL Hct (39.0-53.0) % Sodium 136 L (137-145) mmol/L Carbon Dioxide (22-30) mmol/L BUN 28 H (9-20) mg/dL Glucose 120 H (74-99) mg/dL POC Glucose (mg/dL) 173 H 129 H (70-110) mg/dL 01/27/22 01/27/22 Range/Units 07:25 07:25 RBC 3.14 L (4.30-5.90) m/uL Hgb 10.2 L (13.0-17.5) gm/dL Hct 30.5 L (39.0-53.0) % Sodium (137-145) mmol/L Carbon Dioxide 21 L (22-30) mmol/L BUN 24 H (9-20) mg/dL Glucose 107 H (74-99) mg/dL POC Glucose (mg/dL) (70-110) mg/dL Assessment and Plan Assessment: 1. Multivessel coronary artery disease, status post three-vessel coronary artery bypass grafting surgery 2. Non-ST elevated myocardial infarction this admission 3. History of coronary artery disease with remote history of PCI to his LAD and circumflex coronary artery 4. 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 Ischemic cardiomyopathy with an ejection fraction of 40-45% 6. Hyperlipidemia 7. Thyroid disorder 8. Remote history of nicotine dependence 9. Daily EtOH use, drinks 1 beer daily 10. Family history of early onset coronary artery disease with his dad from a myocardial infarction at age 55 11. Postoperative acute blood loss anemia, expected given hemodilution and ca rdiopulmonary bypass 12. Postoperative paroxysmal atrial fibrillation, a known common occurrence af ter cardiac surgery, status post exclusion of the left atrial appendage with a 35 mm Atriclip Plan: 1. Continue to maximize medical therapy with aspirin, statin, Plavix, and beta shantel. Will increase metoprolol tartrate as tolerated. 2. Encourage incentive spirometry use 10 times every hour while awake. Bronchodilators per pulmonology/critical care medicine. 3. Increase activity, ambulate as tolerated. PT/OT/cardiac rehab following. 4. Will monitor daily labs and x-rays. Electrolyte replacement per protocol. 5. GI/DVT prophylaxis. 6. Insulin management per internal medicine, patient is a nondiabetic with a preoperative hemoglobin A1c of 5.7%. 7. Pain control with current medication regimen. 8. Shower daily. 9. Continue amiodarone 400 mg by mouth twice a day for atrial fibrillation prophylaxis. 10. Continue Flomax 0.4 mg by mouth daily. 11. Discharge planning is in place, anticipate discharge home within the next 24 hours with home health care. 12. Atrial epicardial pacemaker wires removed without incident, bedrest for 1 hour post pacemaker wire removal. 13. Discontinue stool softener due to his complaints of loose stools. 14. More recommendations to follow based on patient's clinical course. Time with Patient: Greater than 30
[2022-01-27 10:00] VITALS: TEMP 97.9
[2022-01-27] MEDS: AMIODARONE 200 MG TAB PO SCH (10:07)
[2022-01-27] MEDS: METOPROLOL TARTRATE 50 MG TAB PO SCH (10:07)
[2022-01-27] MEDS: TAMSULOSIN 0.4 MG CAP.ER.24H PO SCH (10:07)
[2022-01-27] MEDS: ATORVASTATIN 40 MG TAB PO SCH (10:08)
[2022-01-27] MEDS: MULTIVITAMINS, THERA 1 EACH TAB PO SCH (10:08)
[2022-01-27] MEDS: ENOXAPARIN 40 MG/0.4 ML SYRINGE SQ SCH (10:08)
[2022-01-27] MEDS: CLOPIDOGREL 75 MG TAB PO SCH (10:08)
--- NOTE | 2022-01-27 10:12 | P.PN ---
Subjective Progress Note Date: 01/27/22 Hospital course: Patient is a 81-year-old male with a past medical history of CAD status post stenting, atrial fibrillation, hyperlipidemia, hypothyroidism, BPH. Patient presented to the emergency department on 01/18/22 with a chief complaint of chest pain. Patient was found to be an NSTEMI and was taken to the [facility] on 01/18/22 which revealed multivessel coronary artery disease. Cardiothoracic surgery was consulted and patient underwent a CABG 3 on 01/22/22. Physical exam: Patient seen and fully evaluated at bedside this morning. He appears to be doing well and midsternal incision appears to be healing well. Patient denies having any complaints this morning including headache, lightheadedness, dizziness, shortness of breath, palpitations, or any other complaints. He reports incisional pain with movement only and reports looking forward to discharge later today. Cardiothoracic surgery planning to discharge patient later today. Patient reports his is on her way to the hospital. Morning labs reviewed and stable. Vital signs reviewed and stable. General: Nontoxic, no distress and appears stated age. Derm: Skin warm and dry, normal coloration for ethnicity. Head: Atraumatic, normocephalic and symmetric. Eyes: EOMs intact, no lid lag, and anicteric sclera Mouth: no lip lesions, mucus membranes moist Cardiovascular: regular rate and rhythm with normal S1S2, no murmur, positive posterior tibial pulses bilaterally, and cap refill < 2 seconds. Lungs: Respirations even, regular, and unlabored on room air. Lungs CTA bilaterally, no rhonchi, no rales, no wheezing, and no accessory muscle usage. Abdominal: soft, nontender to palpation, no guarding, no appreciable organomegaly Ext: ROM intact. No gross muscle atrophy, no edema, no contractures Neuro: Speech clear, face symmetrical and CN II-XII grossly intact with no noted focal neuro deficits Psych: Alert and oriented to person, place, time, and situation. Appropriate and pleasant affect. Assessment and Plan of Care: Chest pain NSTEMI Multivessel coronary artery disease Chronic systolic heart failure Ischemic cardiomyopathy with an EF of 40-45% Paroxysmal atrial fibrillation -Cardiology following, took patient for heart Cath on 01/18/22 revealing multivessel coronary artery disease -Cardiothoracic surgery consulted and took patient for CABG 3 on 01/22/22 -Continue daily aspirin, Plavix, and atorvastatin -Continue metoprolol and amiodarone -Management by cardiothoracic surgery team, plans for discharge later today. Hyperlipidemia -Continue daily medication regimen atorvastatin Hypothyroidism. -Continue daily medication regimen with levothyroxine. BPH -Continue Flomax CODE STATUS: Full code DVT prophylaxis: Lovenox Discussed with:Patient and RN Anticipated discharge date: Later today Anticipated discharge place: Home A total of 33 minutes was spent on the care of this complex patient more than 50% of the time was spent in counseling and care coordination. Objective - Vital Signs Vital signs: Vital Signs Temp 97.9 F 01/27/22 10:00 Pulse 90 01/27/22 10:00 Resp 17 01/27/22 10:00 BP 123/80 01/27/22 10:00 Pulse Ox 96 01/27/22 10:00 FiO2 45 01/22/22 21:25 Intake & Output 01/26/22 01/27/22 01/27/22 18:59 06:59 18:59 Intake Total 1331 560 Output Total 325 425 Balance 1006 135 Weight 94.6 kg Intake: IV 10 20 Invasive Line 6 10 20 Oral 1321 540 Output: Urine 325 425 Other: Voiding Method Urinal Urinal # Voids 2 ABP, PAP, CO, CI - Last Documented Arterial Blood Pressure 113/51 Pulmonary Artery Pressure 21/9 Cardiac Output 4.7 Cardiac Index 2.2 - Labs CBC & Chem 7: 01/27/22 07:25 01/27/22 07:25 Labs: Abnormal Lab Results - Last 24 Hours (Table) 01/26/22 01/26/22 01/27/22 Range/Units 11:32 20:59 07:25 RBC 3.14 L (4.30-5.90) m/uL Hgb 10.2 L (13.0-17.5) gm/dL Hct 30.5 L (39.0-53.0) % Carbon Dioxide (22-30) mmol/L BUN (9-20) mg/dL Glucose (74-99) mg/dL POC Glucose (mg/dL) 173 H 129 H (70-110) mg/dL 01/27/22 Range/Units 07:25 RBC (4.30-5.90) m/uL Hgb (13.0-17.5) gm/dL Hct (39.0-53.0) % Carbon Dioxide 21 L (22-30) mmol/L BUN 24 H (9-20) mg/dL Glucose 107 H (74-99) mg/dL POC Glucose (mg/dL) (70-110) mg/dL
--- NOTE | 2022-01-27 11:43 | P.PN ---
Subjective Patient is pleasant 81-year-old male with history of coronary artery disease status post PCI to the proximal circumflex and proximal LAD in 07/2000, hyperlipidemia, former nicotine dependence. He follows with Dr. Fritz. We have following the patient secondary to NSTEMI. Patient initially presented to the hospital on 01/18/2022 with complaints of increased shortness of breath and chest tightness after working too much short exerting himself. EKG revealed diffuse ST depressions V1 through V6 as well as in the inferior leads. He was given nitroglycerin however decrease in blood pressure with some mild improvement in chest pain. Troponins later peaked up to 200. 01/18/2022 Patient underwent heart catheterization which showed triple-vessel disease including likely culprit circumflex 99% stenosis with JAK 2-3 flow as well as in-stent stenosis of the LAD and RCA 60% with a PDA 90% stenosis. Additionally LVEDP was extremely elevated at 34. CT Surgery was consulted for evaluation for possible bypass. Echocardiogram revealed EF 40-45% with inferior lateral hypokinesis, trace mitral regurgitation, mild aortic stenosis with a peak/mean gradient of 15 mmHg/9 mmHg 01/22 Patient underwent triple-vessel coronary artery bypass grafting using the left internal mammary artery to left anterior setting coronary artery, a reverse greater saphenous vein graft from the aorta to the posterior descending coronary artery, a reverse greater saphenous vein graft from the aorta to the obtuse marginal coronary artery 01/27 Patient seen and examined at bedside, neck distress. He is doing well. Vital signs are stable. He is ambulating without difficulty. He denies any chest discomfort, dizziness or palpitations. he is maintaining sinus mechanism on the monitor. He was on IV amiodarone yesterday, transitioned to PO amiodarone PHYSICAL EXAMINATION Vital signs reviewed. CONSTITUTIONAL: No apparent distress. HEENT: Head is normocephalic. Neck Supple. No JVD. CHEST EXAMINATION: Lungs are decreased breath sounds. to auscultation. No chest wall tenderness is noted on palpation or with deep breathing. HEART EXAMINATION: Regular rate and rhythm. S1, S2 heard. No murmurs, gallops or rub. ABDOMEN: Soft, nontender. Positive bowel sounds. EXTREMITIES: 2+ peripheral pulses, no lower extremity edema and no calf tenderness. SKIN: right radial cath site, clean dry and intact 2+ pulses NEUROLOGIC EXAMINATION: Patient is awake, alert and oriented x3. ASSESSMENT Non-STEMI with left heart catheterization showing triple-vessel disease Status post three-vessel coronary artery bypass grafting surgery on 01/22/22 Hypotension after administering nitroglycerin, improved Acute on chronic heart failure with mildly reduced ejection fraction Hyperlipidemia Coronary artery disease with prior history of PCI of the proximal circumflex and proximal LAD in 07/2000 Ischemic cardiomyopathy EF 40-45% Former nicotine dependence PLAN PO amiodarone, short term Continue to maximize medical therapy with aspirin, statin, Plavix, and beta shantel Increase activity as tolerated Encourage incentive spirometry Postoperative Management per CT surgery Further recommendations based on clinical course Nurse practitioner note has been reviewed by physician. Signing provider agrees with the documented findings, assessment, and plan of care. Objective - Vital Signs Vital signs: Vital Signs Temp 98.3 F 01/27/22 04:15 Pulse 83 01/27/22 04:15 Resp 17 01/27/22 04:15 BP 105/73 01/27/22 04:15 Pulse Ox 95 01/27/22 04:15 FiO2 45 01/22/22 21:25 Intake & Output 01/26/22 01/27/22 01/27/22 18:59 06:59 18:59 Intake Total 1331 560 Output Total 325 425 Balance 1006 135 Weight 94.6 kg Intake: IV 10 20 Invasive Line 6 10 20 Oral 1321 540 Output: Urine 325 425 Other: Voiding Method Urinal Urinal # Voids 2 ABP, PAP, CO, CI - Last Documented Arterial Blood Pressure 113/51 Pulmonary Artery Pressure 21/9 Cardiac Output 4.7 Cardiac Index 2.2 - Labs CBC & Chem 7: 01/27/22 07:25 01/27/22 07:25 Labs: Abnormal Lab Results - Last 24 Hours (Table) 01/26/22 01/26/22 01/26/22 Range/Units 07:54 07:54 11:32 WBC 11.2 H (3.8-10.6) k/uL RBC 3.29 L (4.30-5.90) m/uL Hgb 10.3 L (13.0-17.5) gm/dL Hct 32.1 L (39.0-53.0) % Sodium 136 L (137-145) mmol/L BUN 28 H (9-20) mg/dL Glucose 120 H (74-99) mg/dL POC Glucose (mg/dL) 173 H (70-110) mg/dL 01/26/22 Range/Units 20:59 WBC (3.8-10.6) k/uL RBC (4.30-5.90) m/uL Hgb (13.0-17.5) gm/dL Hct (39.0-53.0) % Sodium (137-145) mmol/L BUN (9-20) mg/dL Glucose (74-99) mg/dL POC Glucose (mg/dL) 129 H (70-110) mg/dL
[2022-01-27 11:52] LABS: Glucose,Whole Blood 161 mg/dL (70-110)
[2022-01-27 12:37] VITALS: BP 101/67; PULSE 72; RESP 16
--- NOTE | 2022-01-27 12:53 | P.PN ---
Subjective Progress Note Date: 01/27/22 01/27/2022, I'm seeing the patient for a follow-up. Patient is doing extremely well. The patient is postop day #5 following a coronary artery bypass surgery. The patient is currently on room air oxygen. The patient is ambulating. He did have a bout of atrial fibrillation, and expected gallstone surgery and the patient's current rhythm is back to sinus. His rate is controlled for now. The patient is hemodynamically stable. The patient is on room air oxygen. Using incentive spirometer and pulling approximately 1500 mL. No nausea. No vomiting. No chest pain. He is ambulating. He remains on metoprolol 50 mg by mouth twice a day and amiodarone 400 mg 2 twice a day. He is afebrile for now. Note that the patient had some [id number] LV dysfunction preoperatively. He is known to have coronary artery disease with previous PCI and stenting of the LAD and circumflex. His other comorbidities include hyperlipidemia, thyroid disorder and feels history of smoking. Family is at the bedside. No focal neurological deficits. Surgical wound site is dry clean and intact. Objective - Vital Signs Vital signs: Vital Signs Temp 97.9 F 01/27/22 12:36 Pulse 72 01/27/22 12:36 Resp 16 01/27/22 12:36 BP 101/67 01/27/22 12:36 Pulse Ox 94 L 01/27/22 12:36 FiO2 45 01/22/22 21:25 Intake & Output 01/26/22 01/27/22 01/27/22 18:59 06:59 18:59 Intake Total 1331 560 490 Output Total 325 425 300 Balance 1006 135 190 Weight 94.6 kg Intake: IV 10 20 10 Invasive Line 6 10 20 10 Oral 1321 540 480 Output: Urine 325 425 300 Other: Voiding Method Urinal Urinal # Voids 2 ABP, PAP, CO, CI - Last Documented Arterial Blood Pressure 113/51 Pulmonary Artery Pressure 21/9 Cardiac Output 4.7 Cardiac Index 2.2 - Exam CONSTITUTIONAL: Ambulating in his room on the cardiac stepdown unit, appears comfortable, cooperative, no apparent acute distress. HEENT: Neck is supple, no JVD, no lymphadenopathy. RESPIRATORY: Lungs sounds essentially clear throughout, diminished to his bilateral bases, right greater than left. Respirations are symmetrical and nonlabored. Currently on room air with oxygen saturations 95%. Able to achieve 2623-4081 mL on his incentive spirometry. Strong cough. CARDIOVASCULAR: Regular rhythm and rate. S1 and S2 present, negative for S3, gallop or murmur. Sternum is stable. Palpable peripheral pulses bilaterally, no edema to his bilateral lower extremities. No calf pain or tenderness noted. Heart hugger in place with patient demonstrating appropriate use, although needs frequent reminding. Knee-high MARICHUY hose and sequential compression devices in place to his bilateral lower extremities. Remote telemetry showing atrial fibrillation heart rate 84 BPM. GASTROINTESTINAL: Abdomen soft, nontender, nondistended. Active bowel sounds present 4 quadrants. Tolerating diet. Passing flatus. No guarding or rigidity. Bowel movement this a.m. GENITOURINARY: Continues to void. Urine output 425 mL in the last 8 hours INTEGUMENTARY: Skin is warm and dry with no evidence of clubbing or cyanosis. Midline sternal incision clean dry and well approximated, covered with dry intact dressing. Left lower extremity EVH sites well approximated without redness or drainage. NEUROLOGIC: Cranial nerves II through XII intact. No focal deficits. MUSKULOSKELETAL: Able to move all extremities, strength equal bilaterally. PSYCHIATRIC: Alert and oriented to person place and time, appropriate affect, intact judgment and insight. - Labs CBC & Chem 7: 01/27/22 07:25 01/27/22 07:25 Labs: Abnormal Lab Results - Last 24 Hours (Table) 01/26/22 01/27/22 01/27/22 Range/Units 20:59 07:25 07:25 RBC 3.14 L (4.30-5.90) m/uL Hgb 10.2 L (13.0-17.5) gm/dL Hct 30.5 L (39.0-53.0) % Carbon Dioxide 21 L (22-30) mmol/L BUN 24 H (9-20) mg/dL Glucose 107 H (74-99) mg/dL POC Glucose (mg/dL) 129 H (70-110) mg/dL 01/27/22 Range/Units 11:50 RBC (4.30-5.90) m/uL Hgb (13.0-17.5) gm/dL Hct (39.0-53.0) % Carbon Dioxide (22-30) mmol/L BUN (9-20) mg/dL Glucose (74-99) mg/dL POC Glucose (mg/dL) 161 H (70-110) mg/dL Assessment and Plan Plan: Symptomatic multivessel coronary artery disease post bypass surgery and the patient is postop day #5 acute Non-ST segment elevation myocardial infarction Ischemic cardiomyopathy with an ejection fraction of 40-45% preoperatively Post thoracotomy, post mechanical ventilation, currently on room air oxygen Postoperative atrial fibrillation, expected outcome of surgery, current cardiac rhythm is sinus Routine postoperative ventilator management. Previous history of CAD, with previous PCI, and stent placement. History of hyperlipidemia. No apparent chronic lung disease, with an FEV1 that is 83% of predicted. History of hypothyroidism. Previous history of tobacco use. Plan Patient is doing extremely well Patient is on room air oxygen Surgical wound site is dry clean and intact The patient is ambulating Patient is on beta blockers Patient is on oral amiodarone Patient is on aspirin Cardiac rhythm is sinus Epicardial pacemaker wires have been removed Pain is under adequate control Possible discharge home today
--- NOTE | 2022-01-27 14:11 | P.DS ---
Providers Date of admission: 01/18/22 11:05 Expected date of discharge: 01/27/22 Attending physician: Nona Gil DO Consults: 01/18/22 11:03 Consult Physician Urgent Consulting Provider: Mayank James Consult Reason/Comments: NSTEMI Do you want consulting provider notified?: Already Contacted 01/18/22 13:13 Consult Physician Routine Consulting Provider: Chris Ng Consult Reason/Comments: re: CABG eval Do you want consulting provider notified?: Yes 01/20/22 09:00 Consult Physician Routine Consulting Provider: Julien Pradhan Consult Reason/Comments: Pre op Cardiac Surgery Do you want consulting provider notified?: Yes Consult to Anesthesia Routine Consulting Provider: Anesthesia,Services Consult Reason/Comments: Cardiac Surgery Pre-Op 01/22/22 14:00 Consult Physician Routine Consulting Provider: Ruba Benitez Consult Reason/Comments: Medical Management Do you want consulting provider notified?: Already Contacted Primary care physician: [facility] Course: FINAL DIAGNOSIS: 1. Multivessel coronary artery disease, status post three-vessel coronary artery bypass grafting surgery 2. Non-ST elevated myocardial infarction this admission 3. History of coronary artery disease with remote history of PCI to his LAD and circumflex coronary artery 4. 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 Ischemic cardiomyopathy with an ejection fraction of 40-45% 6. Hyperlipidemia 7. Thyroid disorder 8. Remote history of nicotine dependence 9. Daily EtOH use, drinks 1 beer daily 10. Family history of early onset coronary artery disease with his dad from a myocardial infarction at age 55 11. Postoperative acute blood loss anemia, expected given hemodilution and cardiopulmonary bypass 12. Postoperative paroxysmal atrial fibrillation, a known common occurrence after cardiac surgery, status post exclusion of the left atrial appendage with a 35 mm Atriclip PRINCIPAL PROCEDURE: 1. Triple-vessel coronary artery bypass grafting using the left internal mammary artery to left anterior descending coronary artery, a reverse greater saphenous vein graft from the aorta to the posterior descending coronary artery, a reverse greater saphenous vein graft from the aorta to the obtuse marginal coronary artery. 2. Exclusion of the left atrial appendage using a 35 mm Atriclip 3. Endoscopic harvesting of the left greater saphenous vein 4. Intraoperative graft flow measurements using the KelDocstim System 5. Intraoperative transesophageal echocardiogram 6. Epi-aortic scanning HISTORY OF PRESENT ILLNESS: This is a 81-year-old gentleman who follows with Dr. Davidson Reveles for his primary care service on an outpatient basis and with Dr. Fritz for his cardiology care. On 01/18/2022 the patient presented to the emergency department here at [facility] with complaints of chest pressure which was radiating to his neck and left shoulder and was associated with some diaphoresis. A 12-lead EKG was completed in the emergency department which showed sinus bradycardia with a first-degree AV block, diffuse ST depression in his inferior leads and V1 through V6 with a heart rate of 53 BPM. The patient did have elevated troponins as high as 200.0 ruling him in for a non-ST elevated myocardial infarction. Due to the patient's presenting symptoms, history of coronary artery disease and elevated troponins he underwent a cardiac catheterization which demonstrated triple-vessel coronary artery disease with a 75% proximal left anterior descending coronary artery in-stent stenosis, a 95% proximal circumflex in-stent stenosis, a 60-70% stenosis to his mid right coronary artery and a 90% stenosis to his posterior descending coronary artery. For further evaluation A transthoracic 2-D echocardiogram was completed which showed an overall left ventricular ejection fraction of 40-45% with inferior lateral hypokinesis, trace mitral valve regurgitation, mild aortic valve stenosis, mild tricuspid valve regurgitation and a normal pericardium without effusion. Subsequently, due to the patient's presenting symptoms, findings on the cardiac catheterization and elevated troponins a consult was placed to Dr. Fallon Valadez from cardiothoracic surgery. The above-mentioned studies were reviewed with the patient, and the patient family members present at his bedside by Dr. Valadez, treatment options were discussed including myocardial revascularization surgery, risks and benefits including the STS risk score was discussed with the patient regarding myocardial revascularization surgery. Knowing and understanding the risks of surgery the patient wished to proceed with the surgical option. HOSPITAL COURSE: The patient was admitted to the hospital and on 01/22/2022 after obtaining consent, the patient was taken to the preoperative area, prepared in the usual fashion and subsequently taken to the operating room where Dr. Fallon Valadez performed a triple-vessel coronary artery bypass grafting surgery. Upon completion of the surgery the patient was transferred to the cardiovascular intensive care unit where he was recovered and monitored hemodynamically. He was extubated, all lines, tubes and supportive drips were discontinued when appropriate and he was transferred to the third floor cardiac stepdown unit for further monitoring and rehabilitation. His oxygen was titrated down, he continued to work with physical, occupational therapy, cardiac rehabilitation, he was tolerating an oral diet, his pain was well-controlled and he was ready to be discharged home with [facility] home health care on postoperative day #5. He has received written and verbal instructions regarding his medica tions, activity restrictions, signs and symptoms requiring physician notification and his follow-up appointments. Patient Condition at Discharge: Serious Plan - Discharge Summary Discharge Rx Participant: No New Discharge Prescriptions: New Clopidogrel [Plavix] 75 mg PO DAILY #30 tab Acetaminophen Tab [Tylenol] 650 mg PO Q4HR PRN tab PRN Reason: Fever and/ or MILD Pain Aspirin 325 mg PO DAILY #30 tab Amiodarone [Cordarone] 400 mg PO BID #30 tab Tamsulosin [Flomax] 0.4 mg PO PC-BRKFST #30 cap Metoprolol Tartrate [Lopressor] 50 mg PO BID #60 tab Pantoprazole [Protonix] 40 mg PO AC-BRKFST #30 tab Continue Multivitamins, Thera [Multivitamin (formulary)] 1 tab PO DAILY Zinc 50 mg PO Q48H Vitamin D3(Unknown) 1 tab PO Q48H Vitamin B-3(Unknown) 1 tab PO Q48H Selenium 100 mcg PO Q48H Mood Swing Supplement 1 tab PO Q48H Milk Thistle 150 mg PO Q48H Garlic 1,000 mg PO Q48H Levothyroxine Sodium [Synthroid] 137 mcg PO AC-BRKFST Atorvastatin [Lipitor] 40 mg PO HS Vitamin C(Unknown) 1 tab PO Q48H Valerian Root [Valerian] 450 mg PO Q48H L.acidoph,Paracasei, B.lactis [Probiotic] 1 cap PO Q48H Discontinued atenoloL [Tenormin] 25 mg PO HS Aspirin EC [Ecotrin Low Dose] 81 mg PO DAILY Saw [place] 500 mg PO Q48H Ibuprofen [Motrin Ib] 400 mg PO ONCE Aspirin 650 mg PO ONCE Sildenafil Citrate 100 mg PO DAILY PRN PRN Reason: E.D. Discharge Medication List Atorvastatin [Lipitor] 40 mg PO HS 01/18/22 [History] Garlic 1,000 mg PO Q48H 01/18/22 [History] L.acidoph,Paracasei, B.lactis [Probiotic] 1 cap PO Q48H 01/18/22 [History] Levothyroxine Sodium [Synthroid] 137 mcg PO AC-BRKFST 01/18/22 [History] Milk Thistle 150 mg PO Q48H 01/18/22 [History] Mood Swing Supplement 1 tab PO Q48H 01/18/22 [History] Multivitamins, Thera [Multivitamin (formulary)] 1 tab PO DAILY 01/18/22 [History] Selenium 100 mcg PO Q48H 01/18/22 [History] Valerian Root [Valerian] 450 mg PO Q48H 01/18/22 [History] Vitamin B-3(Unknown) 1 tab PO Q48H 01/18/22 [History] Vitamin C(Unknown) 1 tab PO Q48H 01/18/22 [History] Vitamin D3(Unknown) 1 tab PO Q48H 01/18/22 [History] Zinc 50 mg PO Q48H 01/18/22 [History] Acetaminophen Tab [Tylenol] 650 mg PO Q4HR PRN tab 01/27/22 [Rx] Amiodarone [Cordarone] 400 mg PO BID #30 tab 01/27/22 [Rx] Aspirin 325 mg PO DAILY #30 tab 01/27/22 [Rx] Clopidogrel [Plavix] 75 mg PO DAILY #30 tab 01/27/22 [Rx] Metoprolol Tartrate [Lopressor] 50 mg PO BID #60 tab 01/27/22 [Rx] Pantoprazole [Protonix] 40 mg PO AC-BRKFST #30 tab 01/27/22 [Rx] Tamsulosin [Flomax] 0.4 mg PO PC-BRKFST #30 cap 01/27/22 [Rx] Follow up Appointment(s)/Referral(s): Kate León NPC [Nurse Practitioner] - 02/04/22 11:30 am (Follow up with [email or web address] [id number]. Office number is [phone]) Nikki Fritz MD [STAFF PHYSICIAN] - 02/05/22 10:30 am Rehab Suzanna AGUILAR,Cardiac [NON-STAFF] - 4 Weeks (Please expect a call from [facility] cardiac rehab within the next 4-6 weeks.) Fallon Valadez MD [STAFF PHYSICIAN] - 02/14/22 10:15 am Julien Pradhan DO [Doctor of Osteopathic Medicine] - 03/11/22 10:00 am (office will call patient with an earlier appointment.) Davidson Reveles DO [Primary Care Provider] - 02/06/22 5:00 pm [facility] Visiting Nurse, [NON-STAFF] - 1 Week Ambulatory/Diagnostic Orders: Complete Blood Count w/diff [LAB.AMB] Time Frame: 01/30/22, Facility: [facility], Location: Laboratory [facility] Comprehensive Metabolic Panel [LAB.AMB] Time Frame: 01/30/22, Facility: [facility], Location: Laboratory [facility] Activity/Diet/Wound Care/Special Instructions: DISCHARGE INSTRUCTIONS: 1. No driving for 4 weeks, or until physician gives their ok. 2. The patient should sleep in their own bed, no medical bed needed. 3. Stairs are not an issue. If the bedroom is upstairs, it is advised that the patient go up at night and down in the morning for the first week. Go slowly, using handrail and take 1 step at a time. 4. MARICHUY hose are to be worn for 30 days or until physician discontinues. 5. Heart hugger is to be worn 100% of the time until physician discontinues.(except when showering) 6. No lifting, pushing, or pulling more than 10 pounds for 12 weeks. The physician will advise of any restriction changes. 7. The patient is expected to continue the prescribed walking program. 8. Continue pain control per as needed orders. 9. Continue with incentive spirometry and splinting/heart hugger until otherwise directed by the physician. 10. Must shower daily using liquid antibacterial soap and a separate white washcloth for each individual incision. 11. Routine sternal incision care. No powders, lotions, ointments on incisions. No dressings are necessary on incisions unless they are draining. Dermabond tape is to remain on sternal incision until surgeon follow-up. 12. Please call surgeon/DECK MOLDER for temp greater than 101 F or purulent drainage from incisions. 13. You should weigh yourself daily, record and bring log with you to follow up appointments. 14. All prescriptions given by surgeon for 30 days. Refills need to be filled through opal miner/primary care physician. 15. A Red armband has been placed on the patient. It should be worn for 30 days post surgery and will be removed by the cardiac surgeons. If an ER visit is necessary, please make sure the number on the Red armband is called. 16. You have been referred to and are expected to begin Cardiac Rehab in approximately 4-6 weeks. HOME HEALTH SERVICES TO PROVIDE: RN SKILLED HOME CARE SERVICES FOR POST-OP SURGICAL PATIENTS WITH THE FOLLOWING: Coronary Artery Bypass Surgery (CABG), Mitral Valve Replacement/Repair ( MVR), Aortic Valve Replacement/Repair (AVR) RN TO CONTINUE EDUCATION FROM ``ROAD TO A HEALTH HEART PATIENT EDUCATION MANUAL (GIVEN TO PATIENT IN THE HOSPITAL) MEDICATION RECONCILIATION WITH EDUCATION NEEDED ON FIRST HOME VISIT EMPHASIZE IMPORTANCE OF WEARING BREAST SUPPORT/HEART HUGGER ENCOURAGE USE OF INCENTIVE SPIROMETER 10 X EVERY HOUR WHILE AWAKE ENCOURAGE UTILIZATION OF LOWER EXTREMITY COMPRESSION STOCKINGS/MARICHUY HOSE and ELEVATE LEGS ABOVE LEVEL OF HEART WHILE AT REST. ENCOURAGE AMBULATION 3-5x/day INCREASING TOLERATES, WHILE AVOIDING EXTREMES IN TEMPERATURE FREQUENCY: RN TO OPEN THE PATIENT WITHIN 24 HOURS OF DISCHARGE FROM THE HOSPITAL WITH TELEHEALTH INSTALLED AT [facility], RN TO VISIT 2-3 X A WEEK FOR 4 WEEKS ESTABLISHED BY PATIENT NEEDS. LABORATORY: CBC, CMP TO BE DRAWN ON THE THIRD DAY HOME, (RAN STAT) FAX RESULTS TO [phone]. TELEHEALTH PARAMETERS: WEIGHT: NOTIFY MD OF WEIGHT GAIN OF 2 LBS IN 24 HOURS OR 5 LBS IN ONE WEEK HR: NOTIFY MD OF HR <55 BPM OR HR>100 BPM BP: NOTIFY MD IF BP <90/55 OR BP>140/100 O2 SAT: NOTIFY MD IF PO2<93% ON ROOM AIR SEND TELEHEALTH REPORT TO DESIZING MACHINE OPERATOR AND CARDIOVASCULAR SURGEON THE FIRST WEEK OF CARE AND THEN BI-WEEKLY. PLEASE ADDITIONALLY COMMUNICATE ANY ABNORMALS AND NEW FINDINGS TO THE SURGEONS OFFICE. Discharge Disposition: HOME WITH HOME HEALTH SERVICES
== END 2022-01-27 15:49 | disposition home health service (06) | DRG 233 ==
LOC: EC 08:50 → 3SCARD 11:05 → 2SICU 12:33 → 3SCARD 23:12 → 2SICU 01-22 07:02 → 3SCARD 01-25 22:48
PROVIDERS: ADMIT Internal Medicine; ATTEND Internal Medicine
PROC: 4A023N7 Measurement of Cardiac Sampling and Pressure, Left Heart, Percutaneous Approach (ICD-10-PCS; 2022-01-18)
PROC: B2111ZZ Fluoroscopy of Multiple Coronary Arteries using Low Osmolar Contrast (ICD-10-PCS; 2022-01-18)
PROC: 0211093 Bypass Coronary Artery, Two Arteries from Coronary Artery with Autologous Venous Tissue, Open Approach (ICD-10-PCS; 2022-01-22)
PROC: 02L70CK Occlusion of Left Atrial Appendage with Extraluminal Device, Open Approach (ICD-10-PCS; 2022-01-22)
PROC: 5A1221Z Performance of Cardiac Output, Continuous (ICD-10-PCS; 2022-01-22)
PROC: 30243N0 Transfusion of Autologous Red Blood Cells into Central Vein, Percutaneous Approach (ICD-10-PCS; 2022-01-22)
PROC: B24BZZ4 Ultrasonography of Heart with Aorta, Transesophageal (ICD-10-PCS; 2022-01-22)
PROC: 02100Z9 Bypass Coronary Artery, One Artery from Left Internal Mammary, Open Approach (ICD-10-PCS; principal; 2022-01-22 08:00)
PROC: 06BQ4ZZ Excision of Left Saphenous Vein, Percutaneous Endoscopic Approach (ICD-10-PCS; 2022-01-22 08:00)
DX: T82.855A Stenosis of coronary artery stent, initial encounter (principal); I21.4 Non-ST elevation (NSTEMI) myocardial infarction; I50.23 Acute on chronic systolic (congestive) heart failure; D62 Acute posthemorrhagic anemia; J98.11 Atelectasis; I11.0 Hypertensive heart disease with heart failure; E05.90 Thyrotoxicosis, unspecified without thyrotoxic crisis or storm; E03.9 Hypothyroidism, unspecified; I08.3 Combined rheumatic disorders of mitral, aortic and tricuspid valves; I95.9 Hypotension, unspecified; E78.5 Hyperlipidemia, unspecified; I25.10 Atherosclerotic heart disease of native coronary artery without angina pectoris; I44.0 Atrioventricular block, first degree; R00.1 Bradycardia, unspecified; Y83.1 Surgical operation with implant of artificial internal device as the cause of abnormal reaction of the patient, or of later complication, without mention of misadventure at the time of the procedure; I25.5 Ischemic cardiomyopathy; I48.0 Paroxysmal atrial fibrillation; N40.0 Benign prostatic hyperplasia without lower urinary tract symptoms; R73.9 Hyperglycemia, unspecified; T46.3X5A Adverse effect of coronary vasodilators, initial encounter; I25.2 Old myocardial infarction; Z87.891 Personal history of nicotine dependence; Z79.82 Long term (current) use of aspirin; Z95.5 Presence of coronary angioplasty implant and graft; Z79.890 Hormone replacement therapy; Z79.899 Other long term (current) drug therapy; Z88.8 Allergy status to other drugs, medicaments and biological substances; Z82.49 Family history of ischemic heart disease and other diseases of the circulatory system; Z82.3 Family history of stroke
CPT/HCPCS: 36415; 71045; 71046; 80048; 80053; 80061; 80074; 81001; 82330; 82805; 83036; 83690; 83735; 83880; 84132; 84443; 84484; 85025; 85027; 85520; 85610; 85730; 86850; 86891; 86900; 86901; 86920; 87070; 93005; 93306; 93458; 93880; 93922; 93930; 93970; 94002; 94150; 94640; 94760; 96365; 99285